=== PATIENT | female | born 1995 | race Caucasian/White ===

== ENCOUNTER 2016-06-25 20:49 | Emergency (ER) | payer OTHER, MEDICAID ==
[2016-06-25 22:08] LABS: BASO % 0.2 % (0.0-1.0); EOS # 0.5 K/mm3 (0.0-0.50); EOS % 3.7 % (0.0-3.0); LARGE UNSTAINED CELL # 0.3 K/mm3 (0.0-0.4); LARGE UNSTAINED CELL % 2.4 % (0.0-4.0); LYMPH # 4.8 K/mm3 (1.5-6.5); LYMPH % 36.6 % (24.0-44.0); MEAN CORPUSCULAR HEMOGLOBIN 30.9 pg (27.0-33.0); MEAN CORPUSCULAR VOLUME 90.6 fl (80.0-96.0); MONO # 0.7 K/mm3 (0.0-0.8); NEUTROPHILS # 6.8 K/mm3 (1.8-7.7); NEUTROPHILS % 52.1 % (36.0-66.0); PLATELET COUNT, AUTOMATED 361 k/mm3 (150-450); RED CELL DISTRIBUTION WIDTH 12.6 % (11.5-14.5); WHITE BLOOD COUNT 13.1 K/mm3 (4.0-10.0)
[2016-06-25 22:41] LABS: ANION GAP 11 MEQ/L (8-16); BLOOD UREA NITROGEN 11 MG/DL (7-18); CALCIUM LEVEL 9.3 MG/DL (8.5-10.1); CARBON DIOXIDE LEVEL 27 MEQ/L (21-32); CHLORIDE LEVEL 103 MEQ/L (98-107); CREATININE FOR GFR 0.82 MG/DL (0.55-1.02); GLUCOSE, FASTING 82 MG/DL (70-105); HCG, SERUM QUANTITATIVE 11789 MIU/ML; POTASSIUM SERUM 3.3 MEQ/L (3.5-5.1); SODIUM LEVEL 141 MEQ/L (136-145)
--- NOTE | 2016-06-26 | REPUSA ---
Ultrasound of the pelvis Clinical history: pain, rule out ectopic. Findings: Real-time ultrasound imaging of the pelvis using transabdominal imaging was performed. A in trauterine gestation is noted. The pole is appreciated, with the crown rump length measures 0.2 cm. heart rate measures 95 bpm. The gestational sac is grossly unremarkable, without evidence of a subchorionic hemorrhage. The uterus and adnexa are within normal limits. The uterus measures 8.3 x 5.2 x 6.2 cm. The left ovary measures 4.8 x 3.0 x 4.4 cm. A simple cyst in the left ovary measures 2.4 x 2.3 x 2.6 cm. The right ovary measures 3.3 x 2.3 x 2.8 cm. Impression: 1. Single live intrauterine measuring 5 weeks 5 days with a heart rate of 95 bpm. 2. Left ovarian corpus luteum cyst.
[2016-06-26] MEDS ORDERED: PHENAZOPYRIDINE 100 MG TAB As Ordered ONE (01:17)
[2016-06-26] MEDS ORDERED: CIPROFLOXACIN 500 MG TAB As Ordered ONE (01:17)
[2016-06-26] MEDS ORDERED: NITROFURANTOIN (MACROBID) 100 MG CAP As Ordered ONE (01:19)
[2016-06-26] MEDS ORDERED: OXYCODONE/APAP 5MG/325MG(BULK) 1 TAB TAB As Ordered ONE (01:20)
--- NOTE | 2016-06-26 01:35 | EDDOCDS ---
Physician Documentation [facility] Name: Yuliet Mortensen Age: 20 yrs Sex: Female : 1995 Arrival Date: 06/25/2016 Time: 20:49 Bed I4 / M4 Private MD: Nancie Slaughter N. Disposition: 06/26/16 01:24 Discharged to Home/Self Care. Impression: related conditions, unspecified, Hydronephrosis with renal and ureteral calculous obstruction - RIGHT, 6 MM STONE. - Condition is Stable. - Discharge Instructions: First Trimester of , Kidney Stones, Hydronephrosis. - Prescriptions for Percocet 5- 325 mg Oral Tablet - take 1 tablet by ORAL route every [address] LE MDD: 4 tabs; 16 tablet. Macrobid 100 mg Oral Capsule - take 100 milligram by ORAL route every 12 hours for 10 days; 20 capsule. - Medication Reconciliation, Local Pharmacy Hours form. - Follow up: Kwame Jorgensen; When: 2 - 3 days; Reason: Recheck today's complaints, Continuance of care. Follow up: Rick Nguyen; When: 2 - 3 days; Reason: Recheck today's complaints, Continuance of care. - Problem is new. - Symptoms have improved. - Notes: USE MEDICATIONS INSTRUCTED, FOLLOW UP WITH DR JORGENSEN AND DR NGUYEN, RETURN TO THE ER IF THE SYMPTOMS WORSEN OR BECOME CONCERNING Historical: - Allergies: PENICILLINS; - Home Meds: 1. none - PMHx: Kidney stones; frequent UTI; - PSHx: none; - Social history: Smoking status: Patient states was never smoker of tobacco. No barriers to communication noted, The patient speaks fluent Turkish, Speaks appropriately for age. - Family history: Not pertinent. - : The pt / caregiver states he / she is not on anticoagulants. Home medication list is obtained from the patient. - Exposure Risk Screening:: None identified. 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 2 in. (157.48 cm) (R); Pain 0/10; 06/26 01:32 BP 123 / 65; Pulse 91; Resp 16; Temp 98.2; Pulse Ox 99% on R/A; ld5 06/25 20:50 Body Mass Index 18.29 (45.36 kg, 157.48 cm) lr2 MDM: 06/25 21:16 UCG by Nursing ordered. dsf 21:17 UA Ordered. EDMS 21:40 IV Saline Lock ordered. ck7 21:40 NS 0.9% 1000 ml IV at bolus once ordered. ck7 21:41 CBC with Diff Ordered. EDMS 21:41 MED Profile Ordered. EDMS 21:41 Hcg, Serum Quantitative Ordered. EDMS 21:41 US 1st trimester Ordered. EDMS 21:41 Renal US Ordered. EDMS 22:16 UA Reviewed. ck7 22:16 CBC with Diff Reviewed. ck7 23:28 MED Profile Reviewed. ck7 23:28 Hcg, Serum Quantitative Reviewed. ck7 23:51 Financial registration complete. [facility] 06/26 00:15 US 1st trimester Reviewed. ck7 00:56 [facility] Payment Agreement was scanned into [employer] and attached to record. [facility] 01:16 Ciprofloxacin 500 mg PO once ordered. ck7 01:16 Phenazopyridine 200 mg PO once ordered. ck7 01:19 Nitrofurantoin 100 mg PO once ordered. ck7 01:19 oxyCODONE-acetaminophen 4 pack 5 mg-325 mg 1 packets PO once; Dispense with pt, take as ck7 per instruction on package ordered. Point of Care Testing: Urine : 06/25 21:24 hCG Reading: Positive; Control Reading: Positive; ar3 Ranges: Administered Medications: 21:51 Drug: NS 0.9% 1000 ml [sodium chloride 0.9 % intravenous solution] Route: IV; Rate: ld5 bolus; Site: right antecubital; 23:24 Follow up: IV Status: Completed infusion; IV Intake: 1000ml ld5 06/26 01:18 Not Given (OTHER MED USED): Ciprofloxacin 500 mg PO once ck7 01:18 Not Given (NOT GIVEN): Phenazopyridine 200 mg PO once ck7 01:31 Drug: Nitrofurantoin 100 mg {Note: 1 100 mg capsule.} Route: PO; ld5 01:31 Drug: oxyCODONE-acetaminophen 4 pack 1 packets [oxycodone-acetaminophen 5 mg-325 mg ld5 tablet (1 tabs)] {Co-Signature: [email or web address] (Sadie Aguayo RN).} Route: PO; 01:32 Follow up: Response: Med's dispensed home ld5 Signatures: Dispatcher [employer] Js Reyes RN RN cz Dickerson, Laura, RN RN ld5 Dionna Easley RN RN dsf Vicente Dillard, [facility] Mayra Merlos [facility] Sadie Aguayo RN [email or web address] The chart was reviewed and I authenticate all verbal orders and agree with the evaluation and treatment provided.Attachments: 00:56 [facility] Payment Agreement [facility] MTDD
--- NOTE | 2016-06-26 01:35 | EDDOCDS ---
Nurse's Notes [facility] Name: Yuliet Mortensen Age: 20 yrs Sex: Female : 1995 Arrival Date: 06/25/2016 Time: 20:49 Bed I4 / M4 Private MD: Nancie Slaughter N. Diagnosis: related conditions, unspecified;Hydronephrosis with renal and ureteral calculous obstruction-RIGHT, 6 MM STONE Presentation: 06/25 21:03 Presenting complaint: Patient states: having UTI symptoms for several days dysuria cz history of kidney issues. Adult Sepsis Screening: The patient does not have new or worsening altered mentation. Patient's respiratory rate is less than 22. Systolic blood pressure is greater than 100. Patient has a qSOFA score of 0- Negative Sepsis Screen. Suicide/Homicide risk assessment- the patient denies having any suicidal and/or homicidal ideations and does not present with any other emotional, behavioral or mental health complaints. Status: Patient is not a media services specialist or dependent. Transition of care: patient was not received from another setting of care. 21:03 Acuity: MARCELO Level 3 cz 21:03 Method Of Arrival: Walkin/Carried/Asstd cz Triage Assessment: 21:05 General: Appears uncomfortable. Pain: Location: pelvis Pain currently is 2 out of 10 on cz a pain scale. HIV screening NA for this visit Offered previously. 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 none - PMHx: Kidney stones; frequent UTI; - PSHx: none; - Social history: Smoking status: Patient states was never smoker of tobacco. No barriers to communication noted, The patient speaks fluent Austrian, Speaks appropriately for age. - Family history: Not pertinent. - : The pt / caregiver states he / she is not on anticoagulants. Home medication list is obtained from the patient. - Exposure Risk Screening:: None identified. Screenin:51 Screening information is obtained from the patient. Fall risk: No risks identified. ld5 Assistance ADL's: requires no assistance with activities of daily living. Abuse/DV Screen: The patient / caregiver reports he/she is: not in a situation that causes fear, pain or injury. Nutritional screening: No deficits noted. Advance Directives: Currently, there is no health care proxy. home support is adequate. Assessment: 21:15 General: Appears in no apparent distress, Behavior is appropriate for age, cooperative. dsf Neurological: Level of Consciousness is awake, alert. Cardiovascular: Capillary refill < 3 seconds. Respiratory: Airway is patent Respiratory effort is even, unlabored, Respiratory pattern is regular, symmetrical. : Reports burning with urination since 3-4 days ago urinary frequency since 3-4 days ago. 21:51 General: Appears in no apparent distress, Behavior is cooperative, pleasant. Pain: ld5 Location: suprapubic area Quality of pain is described as crampy. Neurological: Level of Consciousness is awake, alert. Respiratory: Airway is patent Respiratory effort is even, unlabored. GI: Abdomen is non- distended Bowel sounds present X 4 quads. Reports episode of nausea earlier today. Denies at this time. : Reports burning with urination urinary frequency. 23:24 General: Pt returned from US. Tolerated well. Sitting up in bed watching TV. Will ld5 continue to monitor. 06/26 00:15 General: Pt out to desk to ask about results. Reports she is tired and hungry and is ld5 ready to go home. It was explained to pt that US results are pending. Pt returned to room. 01:08 General: Mother out of room yelling that "someone needs to do something with her. She ld5 is tired and sick of waiting here!" This RN in to assess pt. Pt laying quietly in bed. Pt reports she is tired, hungry and thirsty. Pt states she has waited long enough and is ready to leave. Support provided. Provider made aware and in to speak with pt and family. Will continue to monitor. 01:32 General: Appears in no apparent distress, Behavior is cooperative. Neurological: Level ld5 of Consciousness is awake, alert. Respiratory: Airway is patent Respiratory effort is even, unlabored. Vital Signs: 06/25 20:50 BP 121 / 69; Pulse 100; Resp 18; Temp 98.4(O); Pulse Ox 100% on R/A; Weight 45.36 kg lr2 (R); Height 5 ft. 2 in. (157.48 cm) (R); Pain 0/10; 06/26 01:32 BP 123 / 65; Pulse 91; Resp 16; Temp 98.2; Pulse Ox 99% on R/A; ld5 06/25 20:50 Body Mass Index 18.29 (45.36 kg, 157.48 cm) lr2 Vitals: 06/25 20:50 Log In Time: June 25, 2016 at 20:49. lr2 ED Course: 20:50 Patient visited by Agustina Sanders. lr2 20:50 Patient moved to Waiting lr2 20:51 Nancie Slaughter is Private Physician. lr2 20:51 Patient moved to Pre RCE lr2 21:04 Triage Initiated cz 21:12 Patient moved to Triage 2 cz 21:17 Patient visited by Dionna Easley RN. dsf 21:24 UA Sent. ar3 21:25 Vicente Dillard RPA-C is PHCP. ck7 21:25 Smooth Brannon DO is Attending Physician. ck7 21:29 Patient visited by Vicente Dillard RPA-C. ck7 21:40 Patient moved to I4 / M4 ar3 21:51 The patient / caregiver is instructed regarding the plan of care and ED course. ld5 Accompanied by Family Member, Patient has correct armband on for positive identification. Placed in gown. 21:51 Hcg, Serum Quantitative Sent. ld5 21:51 MED Profile Sent. ld5 21:51 CBC with Diff Sent. ld5 21:51 Inserted saline lock: 20 gauge in right antecubital area and blood collected. The ld5 patient tolerated the procedure well. Labs drawn. (by ED staff). Sent per order to lab. 21:53 Patient visited by Agustina Villanueva RN. ld5 22:35 Patient visited by Jacky Cole PCA. kb5 22:46 Patient moved to Ultrasound dmg 23:24 Patient moved to I4 / M4 ld5 23:25 Patient visited by Agustina Villanueva RN. ld5 06/26 00:03 Patient visited by Vicente Dillard RPA-C. ck7 00:08 US 1st trimester Returned. EDMS 00:41 Patient visited by Vicente Dillard RPA-C. ck7 00:56 [facility] Payment Agreement was scanned into [employer] and attached to record. slh 01:10 Patient visited by Agustina Villanueva RN. ld5 01:16 Rick Nguyen is Referral Physician. ck7 01:24 Kwame Brantley is Referral Physician. ck7 01:24 Rick Nguyen is Referral Physician. ck7 01:32 Discontinued lock intact, bleeding controlled, pressure dressing applied, No ld5 redness/swelling at site. No procedures done that require assistance. 01:33 Patient visited by Agustina Villanueva RN. ld5 Administered Medications: 06/25 21:51 Drug: NS 0.9% 1000 ml [sodium chloride 0.9 % intravenous solution] Route: IV; Rate: ld5 bolus; Site: right antecubital; 23:24 Follow up: IV Status: Completed infusion; IV Intake: 1000ml ld5 06/26 01:18 Not Given (OTHER MED USED): Ciprofloxacin 500 mg PO once 01:18 Not Given (NOT GIVEN): Phenazopyridine 200 mg PO once ck7 01:31 Drug: Nitrofurantoin 100 mg {Note: 1 100 mg capsule.} Route: PO; ld5 01:31 Drug: oxyCODONE-acetaminophen 4 pack 1 packets [oxycodone-acetaminophen 5 mg-325 mg ld5 tablet (1 tabs)] {Co-Signature: [email or web address] (Sadie Aguayo RN).} Route: PO; :32 Follow up: Response: Med's dispensed home ld5 Point of Care Testing: Urine : 06/25 21:24 hCG Reading: Positive; Control Reading: Positive; ar3 Ranges: Intake: 23:24 IV: 1000.00ml; Total: 1000.00ml. ld5 Order Results: Lab Order: UA; SPEC'M 06/25/16 21:21 Test: APPEARANCE, URINE; Value: CLOUDY; Range: CLEAR; Abnormal: Above high normal; Status: F Test: COLOR, URINE; Value: YELLOW; Range: YELLOW; Status: F Test: PH,URINE; Value: 7.0; Range: 5.0-9.0; Units: UNITS; Status: F Test: SPECIFIC GRAVITY URINE AUTO; Value: 1.011; Range: 1.002-1.035; Status: F Test: PROTEIN, URINE AUTO; Value: NEGATIVE; Range: NEGATIVE; Units: mg/dL; Status: F Test: GLUCOSE, URINE (UA) AUTO; Value: NEGATIVE; Range: NEGATIVE; Units: mg/dL; Status: F Test: KETONE, URINE AUTO; Value: NEGATIVE; Range: NEGATIVE; Units: mg/dL; Status: F Test: UROBILINOGEN, URINE AUTO; Value: 0.2; Range: 0.0-2.0; Units: mg/dL; Status: F Test: BILIRUBIN, URINE AUTO; Value: NEGATIVE; Range: NEGATIVE; Status: F Test: NITRITE, URINE AUTO; Value: NEGATIVE; Range: NEGATIVE; Status: F Test: LEUKOCYTE ESTERASE, URINE AUTO; Value: TRACE; Range: NEGATIVE; Abnormal: Above high normal; Status: F Test: BLOOD, URINE BLOOD; Value: 1+; Range: NEGATIVE; Abnormal: Above high normal; Status: F Test: WBC, URINE AUTO; Value: 7; Range: 0-3; Abnormal: Above high normal; Units: /HPF; Status: F Test: RBC, URINE AUTO; Value: 15; Range: 0-3; Abnormal: Above high normal; Units: /HPF; Status: F Test: BACTERIA, URINE AUTO; Value: NEGATIVE; Range: NEGATIVE; Status: F Test: SQUAMOUS EPITHELIAL CELL UR AU; Value: 1; Range: 0-6; Units: /HPF; Status: F Test: HYALINE CAST, URINE AUTO; Value: 0; Range: 0-1; Units: /LPF; Status: F Test: AMORPHOUS SEDIMENT; Value: SMALL; Range: NEGATIVE; Abnormal: Above high normal; Status: F Lab Order: CBC with Diff; SPEC'M 06/25/16 21:49 Test: WHITE BLOOD COUNT; Value: 13.1; Range: 4.0-10.0; Abnormal: Above high normal; Units: K/mm3; Status: F Test: RED BLOOD COUNT; Value: 4.65; Range: 4.00-5.40; Units: M/mm3; Status: F Test: HEMOGLOBIN; Value: 14.3; Range: 12.0-16.0; Units: g/dl; Status: F Test: HEMATOCRIT; Value: 42.1; Range: 36.0-47.0; Units: %; Status: F Test: MEAN CORPUSCULAR VOLUME; Value: 90.6; Range: 80.0-96.0; Units: fl; Status: F Test: MEAN CORPUSCULAR HEMOGLOBIN; Value: 30.9; Range: 27.0-33.0; Units: pg; Status: F Test: MEAN CORPUSCULAR HGB CONC; Value: 34.0; Range: 32.0-36.5; Units: g/dl; Status: F Test: RED CELL DISTRIBUTION WIDTH; Value: 12.6; Range: 11.5-14.5; Units: %; Status: F Test: PLATELET COUNT, AUTOMATED; Value: 361; Range: 150-450; Units: k/mm3; Status: F Test: NEUTROPHILS %; Value: 52.1; Range: 36.0-66.0; Units: %; Status: F Test: LYMPH %; Value: 36.6; Range: 24.0-44.0; Units: %; Status: F Test: MONO %; Value: 5.0; Range: 0.0-5.0; Units: %; Status: F Test: EOS %; Value: 3.7; Range: 0.0-3.0; Abnormal: Above high normal; Units: %; Status: F Test: BASO %; Value: 0.2; Range: 0.0-1.0; Units: %; Status: F Test: LARGE UNSTAINED CELL %; Value: 2.4; Range: 0.0-4.0; Units: %; Status: F Test: NEUTROPHILS #; Value: 6.8; Range: 1.8-7.7; Units: K/mm3; Status: F Test: LYMPH #; Value: 4.8; Range: 1.5-6.5; Units: K/mm3; Status: F Test: MONO #; Value: 0.7; Range: 0.0-0.8; Units: K/mm3; Status: F Test: EOS #; Value: 0.5; Range: 0.0-0.50; Units: K/mm3; Status: F Test: BASO #; Value: 0.0; Range: 0.0-0.2; Units: K/mm3; Status: F Test: LARGE UNSTAINED CELL #; Value: 0.3; Range: 0.0-0.4; Units: K/mm3; Status: F Lab Order: MED Profile; SPEC'M 06/25/16 21:49 Test: GLUCOSE, FASTING; Value: 82; Range: 70-105; Units: MG/DL; Status: F Test: BLOOD UREA NITROGEN; Value: 11; Range: 7-18; Units: MG/DL; Status: F Test: CREATININE FOR GFR; Value: 0.82; Range: 0.55-1.02; Units: MG/DL; Status: F Test: SODIUM LEVEL; Value: 141; Range: 136-145; Units: MEQ/L; Status: F Test: POTASSIUM SERUM; Value: 3.3; Range: 3.5-5.1; Abnormal: Below low normal; Units: MEQ/L; Status: F Test: CHLORIDE LEVEL; Value: 103; Range: 98-107; Units: MEQ/L; Status: F Test: CARBON DIOXIDE LEVEL; Value: 27; Range: 21-32; Units: MEQ/L; Status: F Test: ANION GAP; Value: 11; Range: 8-16; Units: MEQ/L; Status: F Test: CALCIUM LEVEL; Value: 9.3; Range: 8.5-10.1; Units: MG/DL; Status: F Lab Order: Hcg, Serum Quantitative; SPEC'M 06/25/16 21:49 Test: HCG, SERUM QUANTITATIVE; Value: [id number]; Units: MIU/ML; Status: F Test Note: ; GESTATIONAL AGE APPROXIMATE HCG RANGE (MIU/ML) 0.2-1 WEEK 5-50 1-2 WEEKS 50-500 2-3 WEEKS 100-5,000 3-4 WEEKS 500-10,000 4-5 WEEKS 1,000-50,000 5-6 WEEKS 10,000-100,000 6-8 WEEKS 15,000-200,000 2-3 MONTHS 10,000-100,000 NON FEMALES LESS THAN 3.0 Patient samples may contain human heterophilic antibodies that could react with immunoassays to give falsely elevated or depressed results. This assay has been designed to minimize interference from heterophilic antibodies. Elevated hCG levels have also been associated with trophoblastic disease and nontrophoblastic neoplasms. The possibility of having these diseases should be considered before a diagnosis of is made. This test is not intended for use as a surrogate marker for aiding in the diagnosis or monitoring the treatment of cancer patients. [employer] methodology. Radiology Order: US 1st trimester Test: US 1st trimester REASON FOR EXAMINATION: r/o ectopic; ; Ultrasound of the pelvis; Clinical history: pain, rule out ectopic.; Findings: Real-time ultrasound imaging of the pelvis using transabdominal imaging was performed. A in; trauterine gestation is noted. The pole is appreciated, with the crown rump length measures 0.2; cm. heart rate measures 95 bpm. The gestational sac is grossly unremarkable, without evidence; of a subchorionic hemorrhage. The uterus and adnexa are within normal limits. The uterus measures 8.3; x 5.2 x 6.2 cm. The left ovary measures 4.8 x 3.0 x 4.4 cm. A simple cyst in the left ovary measures; 2.4 x 2.3 x 2.6 cm. The right ovary measures 3.3 x 2.3 x 2.8 cm.; Impression:; 1. Single live intrauterine measuring 5 weeks 5 days with a heart rate of 95 bpm.; 2. Left ovarian corpus luteum cyst.; ; Outcome: 06/26 01:17 Discharge ordered by Provider. ck7 01:24 Discharge ordered by Provider. ck7 01:32 Discharge Assessment: Patient awake, alert and oriented x 3. No cognitive and/or ld5 functional deficits noted. Patient verbalized understanding of disposition instructions. patient administered narcotics - no. The following High Risk Discharge criteria are identified: None. Discharged to home ambulatory, with family. Condition: stable. Discharge instructions given to patient, family, Instructed on discharge instructions, follow up and referral plans. medication usage, no driving heavy equipment, Demonstrated understanding of instructions, medications, Pt was receptive of discharge instructions/ teaching. Prescriptions given X 2. Ultrasound Study completed. Property :Personal belongings accompany Pt. 01:33 Patient left the ED. ld5 Signatures: Dispatcher [employer] EDMS Js Son RN RN cz Gunn, Deanne dmg Bancroft, Kristopher, ELECTRICAL AND RADIO AIRCRAFT MECHANIC ELECTRICAL AND RADIO AIRCRAFT MECHANIC kb5 Annmarie Luna, ELECTRICAL AND RADIO AIRCRAFT MECHANIC ELECTRICAL AND RADIO AIRCRAFT MECHANIC ar3 Agustina Villanueva RN RN ld5 Dionna Easley RN RN dsf Kwaczala, Christopher, RPA-C [id number] Mayra Merlos Laura lr2 Sadie Aguayo RN [email or web address] MTDD
--- NOTE | 2016-06-26 07:54 | REPUSA ---
Clinical history: right flank pain. Findings: The urinary bladder appears unremarkable. No urinary bladder masses are seen. The right kid rukhsana measures 9.9 x 4.8 x 5.0 cm. The left kidney measures 10.9 x 5.3 x 4.6 cm. The kidneys demonstrat e normal echotexture and echogenicity. There is moderate right-sided hydronephrosis. There is a 6 mm stone in the distal right ureter approximately 1.3 cm proximally from the ureterovesical junction. Th ere is no other evidence of nephrolithiasis. No renal masses are seen. No free fluid is appreciated. Impression: Moderate right-sided hydronephrosis secondary to a 6 mm stone in the distal right ureter.
--- NOTE | 2016-06-28 02:35 | EDDOCDS ---
Physician Documentation [facility] Name: Yuliet Mortensen Age: 20 yrs Sex: Female : 1995 Arrival Date: 06/25/2016 Time: 20:49 Bed I4 / M4 Private MD: Nancie Slaughter N. Disposition: 06/26/16 01:24 Discharged to Home/Self Care. Impression: related conditions, unspecified, Hydronephrosis with renal and ureteral calculous obstruction - RIGHT, 6 MM STONE. - Condition is Stable. - Discharge Instructions: First Trimester of , Kidney Stones, Hydronephrosis. - Prescriptions for Percocet 5- 325 mg Oral Tablet - take 1 tablet by ORAL route every [address] LE MDD: 4 tabs; 16 tablet. Macrobid 100 mg Oral Capsule - take 100 milligram by ORAL route every 12 hours for 10 days; 20 capsule. - Medication Reconciliation, Local Pharmacy Hours form. - Follow up: Kwame Jorgensen; When: 2 - 3 days; Reason: Recheck today's complaints, Continuance of care. Follow up: Rick Nguyen; When: 2 - 3 days; Reason: Recheck today's complaints, Continuance of care. - Problem is new. - Symptoms have improved. - Notes: USE MEDICATIONS INSTRUCTED, FOLLOW UP WITH DR JORGENSEN AND DR NGUYEN, RETURN TO THE ER IF THE SYMPTOMS WORSEN OR BECOME CONCERNING Historical: - Allergies: PENICILLINS; - Home Meds: 1. none - PMHx: Kidney stones; frequent UTI; - PSHx: none; - Social history: Smoking status: Patient states was never smoker of tobacco. No barriers to communication noted, The patient speaks fluent [place], Speaks appropriately for age. - Family history: Not pertinent. - : The pt / caregiver states he / she is not on anticoagulants. Home medication list is obtained from the patient. - Exposure Risk Screening:: None identified. 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 2 in. (157.48 cm) (R); Pain 0/10; 06/26 01:32 BP 123 / 65; Pulse 91; Resp 16; Temp 98.2; Pulse Ox 99% on R/A; ld5 06/25 20:50 Body Mass Index 18.29 (45.36 kg, 157.48 cm) lr2 MDM: 06/25 21:16 UCG by Nursing ordered. dsf 21:17 UA Ordered. EDMS 21:40 IV Saline Lock ordered. ck7 21:40 NS 0.9% 1000 ml IV at bolus once ordered. ck7 21:41 CBC with Diff Ordered. EDMS 21:41 MED Profile Ordered. EDMS 21:41 Hcg, Serum Quantitative Ordered. EDMS 21:41 US 1st trimester Ordered. EDMS 21:41 Renal US Ordered. EDMS 22:16 UA Reviewed. ck7 22:16 CBC with Diff Reviewed. ck7 23:28 MED Profile Reviewed. ck7 23:28 Hcg, Serum Quantitative Reviewed. ck7 23:51 Financial registration complete. [facility] 06/26 00:15 US 1st trimester Reviewed. ck7 00:56 [facility] Payment Agreement was scanned into [employer] and attached to record. [facility] 01:16 Ciprofloxacin 500 mg PO once ordered. ck7 01:16 Phenazopyridine 200 mg PO once ordered. ck7 01:19 Nitrofurantoin 100 mg PO once ordered. ck7 01:19 oxyCODONE-acetaminophen 4 pack 5 mg-325 mg 1 packets PO once; Dispense with pt, take as ck7 per instruction on package ordered. Point of Care Testing: Urine : 06/25 21:24 hCG Reading: Positive; Control Reading: Positive; ar3 Ranges: Administered Medications: 21:51 Drug: NS 0.9% 1000 ml [sodium chloride 0.9 % intravenous solution] Route: IV; Rate: ld5 bolus; Site: right antecubital; 23:24 Follow up: IV Status: Completed infusion; IV Intake: 1000ml ld5 06/26 01:18 Not Given (OTHER MED USED): Ciprofloxacin 500 mg PO once ck7 01:18 Not Given (NOT GIVEN): Phenazopyridine 200 mg PO once ck7 01:31 Drug: Nitrofurantoin 100 mg {Note: 1 100 mg capsule.} Route: PO; ld5 01:31 Drug: oxyCODONE-acetaminophen 4 pack 1 packets [oxycodone-acetaminophen 5 mg-325 mg ld5 tablet (1 tabs)] {Co-Signature: [email or web address] (Sadie Aguayo RN).} Route: PO; 01:32 Follow up: Response: Med's dispensed home ld5 Signatures: Dispatcher [employer] Js Reyes RN RN cz Dickerson, Laura, RN RN ld5 Dionna Easley RN RN dsf Vicente Dillard, SOC[facility]-C [facility] Mayra Merlos [facility] Sadie Aguayo RN [email or web address] The chart was reviewed and I authenticate all verbal orders and agree with the evaluation and treatment provided.Attachments: 00:56 [facility] Payment Agreement [facility] Chart [facility]
--- NOTE | 2016-06-28 02:35 | EDDOCDS ---
Physician Documentation [facility] Name: Yuliet Mortensen Age: 20 yrs Sex: Female : 1995 Arrival Date: 06/25/2016 Time: 20:49 Bed I4 / M4 Private MD: Nancie Slaughter N. Disposition: 06/26/16 01:24 Discharged to Home/Self Care. Impression: related conditions, unspecified, Hydronephrosis with renal and ureteral calculous obstruction - RIGHT, 6 MM STONE. - Condition is Stable. - Discharge Instructions: First Trimester of , Kidney Stones, Hydronephrosis. - Prescriptions for Percocet 5- 325 mg Oral Tablet - take 1 tablet by ORAL route every [address] LE MDD: 4 tabs; 16 tablet. Macrobid 100 mg Oral Capsule - take 100 milligram by ORAL route every 12 hours for 10 days; 20 capsule. - Medication Reconciliation, Local Pharmacy Hours form. - Follow up: Kwame Jorgensen; When: 2 - 3 days; Reason: Recheck today's complaints, Continuance of care. Follow up: Rick Nguyen; When: 2 - 3 days; Reason: Recheck today's complaints, Continuance of care. - Problem is new. - Symptoms have improved. - Notes: USE MEDICATIONS INSTRUCTED, FOLLOW UP WITH DR JORGENSEN AND DR NGUYEN, RETURN TO THE ER IF THE SYMPTOMS WORSEN OR BECOME CONCERNING Historical: - Allergies: PENICILLINS; - Home Meds: 1. none - PMHx: Kidney stones; frequent UTI; - PSHx: none; - Social history: Smoking status: Patient states was never smoker of tobacco. No barriers to communication noted, The patient speaks fluent [place], Speaks appropriately for age. - Family history: Not pertinent. - : The pt / caregiver states he / she is not on anticoagulants. Home medication list is obtained from the patient. - Exposure Risk Screening:: None identified. 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 2 in. (157.48 cm) (R); Pain 0/10; 06/26 01:32 BP 123 / 65; Pulse 91; Resp 16; Temp 98.2; Pulse Ox 99% on R/A; ld5 06/25 20:50 Body Mass Index 18.29 (45.36 kg, 157.48 cm) lr2 MDM: 06/25 21:16 UCG by Nursing ordered. dsf 21:17 UA Ordered. EDMS 21:40 IV Saline Lock ordered. ck7 21:40 NS 0.9% 1000 ml IV at bolus once ordered. ck7 21:41 CBC with Diff Ordered. EDMS 21:41 MED Profile Ordered. EDMS 21:41 Hcg, Serum Quantitative Ordered. EDMS 21:41 US 1st trimester Ordered. EDMS 21:41 Renal US Ordered. EDMS 22:16 UA Reviewed. ck7 22:16 CBC with Diff Reviewed. ck7 23:28 MED Profile Reviewed. ck7 23:28 Hcg, Serum Quantitative Reviewed. ck7 23:51 Financial registration complete. [facility] 06/26 00:15 US 1st trimester Reviewed. ck7 00:56 [facility] Payment Agreement was scanned into [employer] and attached to record. [facility] 01:16 Ciprofloxacin 500 mg PO once ordered. ck7 01:16 Phenazopyridine 200 mg PO once ordered. ck7 01:19 Nitrofurantoin 100 mg PO once ordered. ck7 01:19 oxyCODONE-acetaminophen 4 pack 5 mg-325 mg 1 packets PO once; Dispense with pt, take as ck7 per instruction on package ordered. Point of Care Testing: Urine : 06/25 21:24 hCG Reading: Positive; Control Reading: Positive; ar3 Ranges: Administered Medications: 21:51 Drug: NS 0.9% 1000 ml [sodium chloride 0.9 % intravenous solution] Route: IV; Rate: ld5 bolus; Site: right antecubital; 23:24 Follow up: IV Status: Completed infusion; IV Intake: 1000ml ld5 06/26 01:18 Not Given (OTHER MED USED): Ciprofloxacin 500 mg PO once ck7 01:18 Not Given (NOT GIVEN): Phenazopyridine 200 mg PO once ck7 01:31 Drug: Nitrofurantoin 100 mg {Note: 1 100 mg capsule.} Route: PO; ld5 01:31 Drug: oxyCODONE-acetaminophen 4 pack 1 packets [oxycodone-acetaminophen 5 mg-325 mg ld5 tablet (1 tabs)] {Co-Signature: [email or web address] (Sadie Aguayo RN).} Route: PO; 01:32 Follow up: Response: Med's dispensed home ld5 Signatures: Dispatcher [employer] Js Reyes RN RN cz Dickerson, Laura, RN RN ld5 Dionna Easley RN RN dsf Vicente Dillard, [facility]-C [facility] Mayra Merlos [facility] Sadie Aguayo RN [email or web address] The chart was reviewed and I authenticate all verbal orders and agree with the evaluation and treatment provided.Attachments: 00:56 [facility] Payment Agreement [facility] Chart Complete [facility]
--- NOTE | 2016-06-28 02:35 | EDDOCDS ---
Nurse's Notes [facility] Name: Yuliet Mortensen Age: 20 yrs Sex: Female : 1995 Arrival Date: 06/25/2016 Time: 20:49 Bed I4 / M4 Private MD: Nancie Slaughter N. Diagnosis: related conditions, unspecified;Hydronephrosis with renal and ureteral calculous obstruction-RIGHT, 6 MM STONE Presentation: 06/25 21:03 Presenting complaint: Patient states: having UTI symptoms for several days dysuria cz history of kidney issues. Adult Sepsis Screening: The patient does not have new or worsening altered mentation. Patient's respiratory rate is less than 22. Systolic blood pressure is greater than 100. Patient has a qSOFA score of 0- Negative Sepsis Screen. Suicide/Homicide risk assessment- the patient denies having any suicidal and/or homicidal ideations and does not present with any other emotional, behavioral or mental health complaints. Status: Patient is not a servicer travel trailers or dependent. Transition of care: patient was not received from another setting of care. 21:03 Acuity: MARCELO Level 3 cz 21:03 Method Of Arrival: Walkin/Carried/Asstd cz Triage Assessment: 21:05 General: Appears uncomfortable. Pain: Location: pelvis Pain currently is 2 out of 10 on cz a pain scale. HIV screening NA for this visit Offered previously. 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 none - PMHx: Kidney stones; frequent UTI; - PSHx: none; - Social history: Smoking status: Patient states was never smoker of tobacco. No barriers to communication noted, The patient speaks fluent [place], Speaks appropriately for age. - Family history: Not pertinent. - : The pt / caregiver states he / she is not on anticoagulants. Home medication list is obtained from the patient. - Exposure Risk Screening:: None identified. Screenin:51 Screening information is obtained from the patient. Fall risk: No risks identified. ld5 Assistance ADL's: requires no assistance with activities of daily living. Abuse/DV Screen: The patient / caregiver reports he/she is: not in a situation that causes fear, pain or injury. Nutritional screening: No deficits noted. Advance Directives: Currently, there is no health care proxy. home support is adequate. Assessment: 21:15 General: Appears in no apparent distress, Behavior is appropriate for age, cooperative. dsf Neurological: Level of Consciousness is awake, alert. Cardiovascular: Capillary refill < 3 seconds. Respiratory: Airway is patent Respiratory effort is even, unlabored, Respiratory pattern is regular, symmetrical. : Reports burning with urination since 3-4 days ago urinary frequency since 3-4 days ago. 21:51 General: Appears in no apparent distress, Behavior is cooperative, pleasant. Pain: ld5 Location: suprapubic area Quality of pain is described as crampy. Neurological: Level of Consciousness is awake, alert. Respiratory: Airway is patent Respiratory effort is even, unlabored. GI: Abdomen is non- distended Bowel sounds present X 4 quads. Reports episode of nausea earlier today. Denies at this time. : Reports burning with urination urinary frequency. 23:24 General: Pt returned from US. Tolerated well. Sitting up in bed watching TV. Will ld5 continue to monitor. 06/26 00:15 General: Pt out to desk to ask about results. Reports she is tired and hungry and is ld5 ready to go home. It was explained to pt that US results are pending. Pt returned to room. 01:08 General: Mother out of room yelling that "someone needs to do something with her. She ld5 is tired and sick of waiting here!" This RN in to assess pt. Pt laying quietly in bed. Pt reports she is tired, hungry and thirsty. Pt states she has waited long enough and is ready to leave. Support provided. Provider made aware and in to speak with pt and family. Will continue to monitor. 01:32 General: Appears in no apparent distress, Behavior is cooperative. Neurological: Level ld5 of Consciousness is awake, alert. Respiratory: Airway is patent Respiratory effort is even, unlabored. Vital Signs: 06/25 20:50 BP 121 / 69; Pulse 100; Resp 18; Temp 98.4(O); Pulse Ox 100% on R/A; Weight 45.36 kg lr2 (R); Height 5 ft. 2 in. (157.48 cm) (R); Pain 0/10; 06/26 01:32 BP 123 / 65; Pulse 91; Resp 16; Temp 98.2; Pulse Ox 99% on R/A; ld5 06/25 20:50 Body Mass Index 18.29 (45.36 kg, 157.48 cm) lr2 Vitals: 06/25 20:50 Log In Time: June 25, 2016 at 20:49. lr2 ED Course: 20:50 Patient visited by Agustina Sanders. lr2 20:50 Patient moved to Waiting lr2 20:51 Nancie Slaughter is Private Physician. lr2 20:51 Patient moved to Pre RCE lr2 21:04 Triage Initiated cz 21:12 Patient moved to Triage 2 cz 21:17 Patient visited by Dionna Easley RN. dsf 21:24 UA Sent. ar3 21:25 Vicente Dillard RPA-C is PHCP. ck7 21:25 Smooth Brannon DO is Attending Physician. ck7 21:29 Patient visited by Vicente Dillard RPA-C. ck7 21:40 Patient moved to I4 / M4 ar3 21:51 The patient / caregiver is instructed regarding the plan of care and ED course. ld5 Accompanied by Family Member, Patient has correct armband on for positive identification. Placed in gown. 21:51 Hcg, Serum Quantitative Sent. ld5 21:51 MED Profile Sent. ld5 21:51 CBC with Diff Sent. ld5 21:51 Inserted saline lock: 20 gauge in right antecubital area and blood collected. The ld5 patient tolerated the procedure well. Labs drawn. (by ED staff). Sent per order to lab. 21:53 Patient visited by Agustina Villanueva RN. ld5 22:35 Patient visited by Jacky Cole PCA. kb5 22:46 Patient moved to Ultrasound dmg 23:24 Patient moved to I4 / M4 ld5 23:25 Patient visited by Agustina Villanueva RN. ld5 06/26 00:03 Patient visited by Vicente Dillard RPA-C. ck7 00:08 US 1st trimester Returned. EDMS 00:41 Patient visited by Vicente Dillard RPA-C. ck7 00:56 [facility] Payment Agreement was scanned into [employer] and attached to record. slh 01:10 Patient visited by Agustina Villanueva RN. ld5 01:16 Rick Nguyen is Referral Physician. ck7 01:24 Kwame Brantley is Referral Physician. ck7 01:24 Rick Nguyen is Referral Physician. ck7 01:32 Discontinued lock intact, bleeding controlled, pressure dressing applied, No ld5 redness/swelling at site. No procedures done that require assistance. 01:33 Patient visited by Agustina Villanueva RN. ld5 08:01 Renal US Returned. EDMS Administered Medications: 06/25 21:51 Drug: NS 0.9% 1000 ml [sodium chloride 0.9 % intravenous solution] Route: IV; Rate: ld5 bolus; Site: right antecubital; 23:24 Follow up: IV Status: Completed infusion; IV Intake: 1000ml ld5 06/26 01:18 Not Given (OTHER MED USED): Ciprofloxacin 500 mg PO once 7 01:18 Not Given (NOT GIVEN): Phenazopyridine 200 mg PO once ck7 01:31 Drug: Nitrofurantoin 100 mg {Note: 1 100 mg capsule.} Route: PO; ld5 01:31 Drug: oxyCODONE-acetaminophen 4 pack 1 packets [oxycodone-acetaminophen 5 mg-325 mg ld5 tablet (1 tabs)] {Co-Signature: [email or web address] (Sadie Aguayo RN).} Route: PO; 01:32 Follow up: Response: Med's dispensed home ld5 Point of Care Testing: Urine : 06/25 21:24 hCG Reading: Positive; Control Reading: Positive; ar3 Ranges: Intake: 23:24 IV: 1000.00ml; Total: 1000.00ml. ld5 Order Results: Lab Order: UA; SPEC'M 06/25/16 21:21 Test: APPEARANCE, URINE; Value: CLOUDY; Range: CLEAR; Abnormal: Above high normal; Status: F Test: COLOR, URINE; Value: YELLOW; Range: YELLOW; Status: F Test: PH,URINE; Value: 7.0; Range: 5.0-9.0; Units: UNITS; Status: F Test: SPECIFIC GRAVITY URINE AUTO; Value: 1.011; Range: 1.002-1.035; Status: F Test: PROTEIN, URINE AUTO; Value: NEGATIVE; Range: NEGATIVE; Units: mg/dL; Status: F Test: GLUCOSE, URINE (UA) AUTO; Value: NEGATIVE; Range: NEGATIVE; Units: mg/dL; Status: F Test: KETONE, URINE AUTO; Value: NEGATIVE; Range: NEGATIVE; Units: mg/dL; Status: F Test: UROBILINOGEN, URINE AUTO; Value: 0.2; Range: 0.0-2.0; Units: mg/dL; Status: F Test: BILIRUBIN, URINE AUTO; Value: NEGATIVE; Range: NEGATIVE; Status: F Test: NITRITE, URINE AUTO; Value: NEGATIVE; Range: NEGATIVE; Status: F Test: LEUKOCYTE ESTERASE, URINE AUTO; Value: TRACE; Range: NEGATIVE; Abnormal: Above high normal; Status: F Test: BLOOD, URINE BLOOD; Value: 1+; Range: NEGATIVE; Abnormal: Above high normal; Status: F Test: WBC, URINE AUTO; Value: 7; Range: 0-3; Abnormal: Above high normal; Units: /HPF; Status: F Test: RBC, URINE AUTO; Value: 15; Range: 0-3; Abnormal: Above high normal; Units: /HPF; Status: F Test: BACTERIA, URINE AUTO; Value: NEGATIVE; Range: NEGATIVE; Status: F Test: SQUAMOUS EPITHELIAL CELL UR AU; Value: 1; Range: 0-6; Units: /HPF; Status: F Test: HYALINE CAST, URINE AUTO; Value: 0; Range: 0-1; Units: /LPF; Status: F Test: AMORPHOUS SEDIMENT; Value: SMALL; Range: NEGATIVE; Abnormal: Above high normal; Status: F Lab Order: CBC with Diff; SPEC'M 06/25/16 21:49 Test: WHITE BLOOD COUNT; Value: 13.1; Range: 4.0-10.0; Abnormal: Above high normal; Units: K/mm3; Status: F Test: RED BLOOD COUNT; Value: 4.65; Range: 4.00-5.40; Units: M/mm3; Status: F Test: HEMOGLOBIN; Value: 14.3; Range: 12.0-16.0; Units: g/dl; Status: F Test: HEMATOCRIT; Value: 42.1; Range: 36.0-47.0; Units: %; Status: F Test: MEAN CORPUSCULAR VOLUME; Value: 90.6; Range: 80.0-96.0; Units: fl; Status: F Test: MEAN CORPUSCULAR HEMOGLOBIN; Value: 30.9; Range: 27.0-33.0; Units: pg; Status: F Test: MEAN CORPUSCULAR HGB CONC; Value: 34.0; Range: 32.0-36.5; Units: g/dl; Status: F Test: RED CELL DISTRIBUTION WIDTH; Value: 12.6; Range: 11.5-14.5; Units: %; Status: F Test: PLATELET COUNT, AUTOMATED; Value: 361; Range: 150-450; Units: k/mm3; Status: F Test: NEUTROPHILS %; Value: 52.1; Range: 36.0-66.0; Units: %; Status: F Test: LYMPH %; Value: 36.6; Range: 24.0-44.0; Units: %; Status: F Test: MONO %; Value: 5.0; Range: 0.0-5.0; Units: %; Status: F Test: EOS %; Value: 3.7; Range: 0.0-3.0; Abnormal: Above high normal; Units: %; Status: F Test: BASO %; Value: 0.2; Range: 0.0-1.0; Units: %; Status: F Test: LARGE UNSTAINED CELL %; Value: 2.4; Range: 0.0-4.0; Units: %; Status: F Test: NEUTROPHILS #; Value: 6.8; Range: 1.8-7.7; Units: K/mm3; Status: F Test: LYMPH #; Value: 4.8; Range: 1.5-6.5; Units: K/mm3; Status: F Test: MONO #; Value: 0.7; Range: 0.0-0.8; Units: K/mm3; Status: F Test: EOS #; Value: 0.5; Range: 0.0-0.50; Units: K/mm3; Status: F Test: BASO #; Value: 0.0; Range: 0.0-0.2; Units: K/mm3; Status: F Test: LARGE UNSTAINED CELL #; Value: 0.3; Range: 0.0-0.4; Units: K/mm3; Status: F Lab Order: MED Profile; SPEC'M 06/25/16 21:49 Test: GLUCOSE, FASTING; Value: 82; Range: 70-105; Units: MG/DL; Status: F Test: BLOOD UREA NITROGEN; Value: 11; Range: 7-18; Units: MG/DL; Status: F Test: CREATININE FOR GFR; Value: 0.82; Range: 0.55-1.02; Units: MG/DL; Status: F Test: SODIUM LEVEL; Value: 141; Range: 136-145; Units: MEQ/L; Status: F Test: POTASSIUM SERUM; Value: 3.3; Range: 3.5-5.1; Abnormal: Below low normal; Units: MEQ/L; Status: F Test: CHLORIDE LEVEL; Value: 103; Range: 98-107; Units: MEQ/L; Status: F Test: CARBON DIOXIDE LEVEL; Value: 27; Range: 21-32; Units: MEQ/L; Status: F Test: ANION GAP; Value: 11; Range: 8-16; Units: MEQ/L; Status: F Test: CALCIUM LEVEL; Value: 9.3; Range: 8.5-10.1; Units: MG/DL; Status: F Lab Order: Hcg, Serum Quantitative; SPEC'M 06/25/16 21:49 Test: HCG, SERUM QUANTITATIVE; Value: [id number]; Units: MIU/ML; Status: F Test Note: ; GESTATIONAL AGE APPROXIMATE HCG RANGE (MIU/ML) 0.2-1 WEEK 5-50 1-2 WEEKS 50-500 2-3 WEEKS 100-5,000 3-4 WEEKS 500-10,000 4-5 WEEKS 1,000-50,000 5-6 WEEKS 10,000-100,000 6-8 WEEKS 15,000-200,000 2-3 MONTHS 10,000-100,000 NON FEMALES LESS THAN 3.0 Patient samples may contain human heterophilic antibodies that could react with immunoassays to give falsely elevated or depressed results. This assay has been designed to minimize interference from heterophilic antibodies. Elevated hCG levels have also been associated with trophoblastic disease and nontrophoblastic neoplasms. The possibility of having these diseases should be considered before a diagnosis of is made. This test is not intended for use as a surrogate marker for aiding in the diagnosis or monitoring the treatment of cancer patients. [employer] methodology. Radiology Order: US 1st trimester Test: US 1st trimester REASON FOR EXAMINATION: r/o ectopic; ; Ultrasound of the pelvis; Clinical history: pain, rule out ectopic.; Findings: Real-time ultrasound imaging of the pelvis using transabdominal imaging was performed. A in; trauterine gestation is noted. The pole is appreciated, with the crown rump length measures 0.2; cm. heart rate measures 95 bpm. The gestational sac is grossly unremarkable, without evidence; of a subchorionic hemorrhage. The uterus and adnexa are within normal limits. The uterus measures 8.3; x 5.2 x 6.2 cm. The left ovary measures 4.8 x 3.0 x 4.4 cm. A simple cyst in the left ovary measures; 2.4 x 2.3 x 2.6 cm. The right ovary measures 3.3 x 2.3 x 2.8 cm.; Impression:; 1. Single live intrauterine measuring 5 weeks 5 days with a heart rate of 95 bpm.; 2. Left ovarian corpus luteum cyst.; ; Radiology Order: Renal US Test: Renal US REASON FOR EXAMINATION: r/o kidney stone, right flank pain; ; Clinical history: right flank pain.; Findings: The urinary bladder appears unremarkable. No urinary bladder masses are seen. The right kid; rukhsana measures 9.9 x 4.8 x 5.0 cm. The left kidney measures 10.9 x 5.3 x 4.6 cm. The kidneys demonstrat; e normal echotexture and echogenicity. There is moderate right-sided hydronephrosis. There is a 6 mm; stone in the distal right ureter approximately 1.3 cm proximally from the ureterovesical junction. Th; ere is no other evidence of nephrolithiasis. No renal masses are seen. No free fluid is appreciated.; Impression: Moderate right-sided hydronephrosis secondary to a 6 mm stone in the distal right ureter.; ; ; Outcome: 06/26 01:17 Discharge ordered by Provider. ck7 01:24 Discharge ordered by Provider. ck7 01:32 Discharge Assessment: Patient awake, alert and oriented x 3. No cognitive and/or ld5 functional deficits noted. Patient verbalized understanding of disposition instructions. patient administered narcotics - no. The following High Risk Discharge criteria are identified: None. Discharged to home ambulatory, with family. Condition: stable. Discharge instructions given to patient, family, Instructed on discharge instructions, follow up and referral plans. medication usage, no driving heavy equipment, Demonstrated understanding of instructions, medications, Pt was receptive of discharge instructions/ teaching. Prescriptions given X 2. Ultrasound Study completed. Property :Personal belongings accompany Pt. 01:33 Patient left the ED. ld5 Signatures: Dispatcher [employer] EDMS Js Son, RN RN Brandi Asif Kristopher, SURGERY TECH SURGERY TECH kb5 Annmarie Luna, SURGERY TECH SURGERY TECH ar3 Agustina VillanuevaRN RN ld5 Dionna EasleyRN RN dsf Vicente Dillard, RPA-C RPA-[id number] Mayra Merlos Laura lr2 Sadie Aguayo RN [email or web address] Chart Complete [facility]
== END 2016-06-26 01:33 | disposition home or self-care (01) ==
LOC: M ED 20:49
DX: O99.281 Endocrine, nutritional and metabolic diseases complicating pregnancy, first trimester (principal); N20.0 Calculus of kidney; Z88.0 Allergy status to penicillin; Z3A.01 Less than 8 weeks gestation of pregnancy

== ENCOUNTER → 2016-07-20 | Outpatient (REF) | payer OTHER, MEDICAID ==
[2016-07-20 11:29] LABS: BASO % 0.5 % (0.0-1.0); EOS # 0.4 K/mm3 (0.0-0.50); EOS % 5.4 % (0.0-3.0); LARGE UNSTAINED CELL # 0.1 K/mm3 (0.0-0.4); LARGE UNSTAINED CELL % 1.2 % (0.0-4.0); LYMPH % 23.7 % (24.0-44.0); MEAN CORPUSCULAR HEMOGLOBIN 31.5 pg (27.0-33.0); MEAN CORPUSCULAR HGB CONC 33.9 g/dl (32.0-36.5); MONO # 0.5 K/mm3 (0.0-0.8); MONO % 5.4 % (0.0-5.0); NEUTROPHILS # 5.2 K/mm3 (1.8-7.7); NEUTROPHILS % 63.8 % (36.0-66.0); PLATELET COUNT, AUTOMATED 273 k/mm3 (150-450); RED CELL DISTRIBUTION WIDTH 12.8 % (11.5-14.5); WHITE BLOOD COUNT 8.2 K/mm3 (4.0-10.0)
[2016-07-20 12:09] LABS: HBsAg Prenatal NEGATIVE (NEGATIVE)
[2016-07-20 12:37] LABS: HIV SCREEN CENTAUR NEGATIVE (NEGATIVE)
== END ==
LOC: M LABDRWAD 11:00
PROVIDERS: ATTEND Advanced Practice Midwife
DX: Z34.81 Encounter for supervision of other normal pregnancy, first trimester (principal); Z36 Encounter for antenatal screening of mother

== ENCOUNTER → 2016-09-20 | Outpatient (CLI) | payer OTHER, MEDICAID ==
--- NOTE | 2016-09-20 15:09 | REP ---
OBSTETRIC SONOGRAM: HISTORY: Supervision of for anatomy. FINDINGS: Scanning through the gravid uterus demonstrates a viable single intrauterine gestation in a breech lie. motion is observed, and heart rate is recorded at 160 beats per minute. An anterior grade 0 placenta is seen without evidence of previa or abruption. Amniotic fluid is subjectively normal. Closed cervical length is 3.5 cm. No extrauterine abnormalities observed. There has been appropriate interval growth. No abnormality is seen. heart and outflow tract views are less than optimally seen however today due to lie. The following additional anatomic structures are identified and felt to be sonographically unremarkable: cranium, choroid plexus, cavum, cerebellum, posterior fossa, face and profile, lungs, diaphragm, left-sided stomach, abdominal wall cord insertion, three-vessel umbilical cord, kidneys and bladder, spine, upper and lower extremities. BIOMETRY CHART: BPD 4.1 cm = 18 weeks 2 days Head circumference 15.2 cm = 18 weeks 2 days Abdominal circumference 13.3 cm = 18 weeks 5 days Femur length 3.0 cm = 19 weeks 2 days Humeral length 2.7 cm = 18 weeks 3 days Cerebellar diameter 1.8 cm = 18 weeks 0 days HC/AC ratio normal 1.15 Cephalic index normal 0.74 Estimated weight 263 grams, 0 pounds 9 ounces, 76th percentile for 18 weeks 1 day, less than 3rd percentile for 26 weeks 5 days. IMPRESSION: Viable single intrauterine gestation at 18 weeks 4 days by today's composite sonographic criteria. Expected gestational age estimate based on prior sonography is 18 weeks 1 day. MAHESH by prior sonography 02/20/2017. heart views less than optimally seen. Signed by Chet Samson MD 09/20/2016 04:02 P
== END ==
LOC: M SMT 13:47
PROVIDERS: ATTEND Advanced Practice Midwife
DX: Z34.82 Encounter for supervision of other normal pregnancy, second trimester (principal); Z36 Encounter for antenatal screening of mother; Z3A.18 18 weeks gestation of pregnancy

== ENCOUNTER → 2016-10-05 | Outpatient (CLI) | payer OTHER, MEDICAID ==
[2016-10-05 13:51] LABS: ALBUMIN 3.1 GM/DL (3.2-5.2); ANION GAP 6 MEQ/L (8-16); BLOOD UREA NITROGEN 7 MG/DL (7-18); CALCIUM LEVEL 8.8 MG/DL (8.5-10.1); CARBON DIOXIDE LEVEL 27 MEQ/L (21-32); CHLORIDE LEVEL 105 MEQ/L (98-107); CREATININE FOR GFR 0.56 MG/DL (0.55-1.02); GLUCOSE, FASTING 75 MG/DL (70-105); PHOSPHORUS LEVEL 3.2 MG/DL (2.5-4.9); POTASSIUM SERUM 3.8 MEQ/L (3.5-5.1); SODIUM LEVEL 138 MEQ/L (136-145)
[2016-10-05 14:07] LABS: MEAN CORPUSCULAR HEMOGLOBIN 32.3 pg (27.0-33.0); MEAN CORPUSCULAR HGB CONC 34.4 g/dl (32.0-36.5); MEAN CORPUSCULAR VOLUME 93.9 fl (80.0-96.0); RED CELL DISTRIBUTION WIDTH 12.7 % (11.5-14.5)
[2016-10-05 15:00] LABS: BASOPHILS 1 % (0-4); EOSINOPHILS 1 % (0-5)
== END ==
LOC: M SMT 10:11
PROVIDERS: ATTEND Advanced Practice Midwife
DX: N20.0 Calculus of kidney (principal)

== ENCOUNTER → 2016-10-29 | Outpatient (CLI) | payer OTHER ==
[~2016-10-29] MED LIST: ACET50TA PO; IBUP-1114 PO; PRENTAB9 PO
== END ==
LOC: M LAB 15:58
PROVIDERS: ATTEND Advanced Practice Midwife
DX: R42 Dizziness and giddiness (principal)

== ENCOUNTER → 2016-11-06 | Outpatient (CLI) | payer OTHER, MEDICAID ==
--- NOTE | 2016-11-06 23:36 | REP ---
Clinical: Anatomical evaluation. Comparison: 09/20/2016 . Findings: Examination demonstrates a single live intrauterine in breech presentation. motion is identified by technologist. Placenta is noted posteriorly and grade zero without evidence for placenta previa or abruption. Amniotic fluid volume is normal. Cervix measures 4.8 cm in length and appears closed. No evidence for nuchal cord. Gestational age by LMP 33 weeks 3 days with MAHESH 12/22/2016 . Gestational age by current measurements 25 weeks 0 days with MAHESH 02/19/2017 . FHR equals 147 beats per minute. Estimated weight 816 grams ( 61st percentile). Anatomical assessment demonstrates normal structures including cranium, choroid plexus, cavum, cerebellum/posterior fossa, facial features, lungs, four-chamber heart/ventricular outflow tracts, diaphragm, stomach, cord insertion/three-vessel cord, kidneys/bladder, spine, and extremities. Impression: Single live intrauterine in breech presentation demonstrating appropriate interval growth when compared to first ultrasound. Anatomical assessment is complete and normal. Signed by Kobe Ghosh MD 11/06/2016 11:27 P
== END ==
LOC: M SMT 13:37
PROVIDERS: ATTEND Obstetrics & Gynecology
DX: O32.1XX0 Maternal care for breech presentation, not applicable or unspecified (principal); Z36 Encounter for antenatal screening of mother; Z3A.33 33 weeks gestation of pregnancy

== ENCOUNTER → 2017-01-23 | Outpatient (CLI) | payer OTHER ==
[2017-01-23 13:06] LABS: MEAN CORPUSCULAR HEMOGLOBIN 31.7 pg (27.0-33.0); MEAN CORPUSCULAR HGB CONC 33.9 g/dl (32.0-36.5); MEAN CORPUSCULAR VOLUME 93.5 fl (80.0-96.0); RED CELL DISTRIBUTION WIDTH 13.7 % (11.5-14.5); WHITE BLOOD COUNT 8.7 10^3/uL (4.0-10.0)
[2017-01-23 13:40] LABS: THYROXINE (T4) 10.3 UG/DL (6.0-11.6)
== END ==
LOC: M SMT 09:12
PROVIDERS: ATTEND Advanced Practice Midwife
DX: R00.2 Palpitations (principal)

== ENCOUNTER 2017-02-08 09:22 | Inpatient (IN) | payer OTHER ==
[~2017-02-08] VITALS: Ht 157.5 cm; Wt 70.0 kg
[2017-02-08] VITALS (31 sets, daily range): BP systolic 118–186; BP diastolic 71–114
[2017-02-08] MEDS ORDERED: PRENTAB9 PO (09:33)
[2017-02-08] MEDS ORDERED: LR 1,000 ML IV SCH ×2 (10:03→18:57)
[2017-02-08] MEDS ORDERED: LACTATED RINGER'S 1000 ML IV STA (10:03)
[2017-02-08] MEDS ORDERED: OXYTOCIN DRIP 30 UNITS in APPROPRIATE DILUENT 1 EA IV SCH ×2 (10:15→18:57)
[2017-02-08 11:00] LABS: MEAN CORPUSCULAR HEMOGLOBIN 31.7 pg (27.0-33.0); MEAN CORPUSCULAR HGB CONC 34.7 g/dl (32.0-36.5); MEAN CORPUSCULAR VOLUME 91.2 fl (80.0-96.0); RED CELL DISTRIBUTION WIDTH 13.4 % (11.5-14.5); WHITE BLOOD COUNT 9.8 10^3/uL (4.0-10.0)
[2017-02-08 11:54] LABS: ALT/SGPT 22 U/L (12-78); AST/SGOT 21 U/L (15-37); BILIRUBIN,TOTAL 0.4 MG/DL (0.2-1.0); CREATININE FOR GFR 0.77 MG/DL (0.55-1.02); URIC ACID 6.6 MG/DL (2.6-6.0)
[2017-02-08] MEDS ORDERED: FENTANYL 2MCG/ML ROPIVACAINE 0.2% IN 0.9% NACL 200ML IVBAG As Ordered ONE (13:00)
[2017-02-08] MEDS ORDERED: REFRIGERATOR IV KEYS XX PRN (14:45)
[2017-02-08] MEDS ORDERED: LACTATED RINGER'S 1000 ML IV PRN (14:45)
[2017-02-08] MEDS ORDERED: diphenhydrAMINE INJ 50MG/ML VIAL (J1200) IV PRN (14:45)
[2017-02-08] MEDS ORDERED: ONDANSETRON 4MG/2ML VIAL (J2405) IV PRN ×2 (14:45→19:00)
[2017-02-08] MEDS ORDERED: FENTANYL/ROPIVACAINE/NACL BAG 200 ML EPIDURAL SCH (14:45)
[2017-02-08] MEDS ORDERED: EPIDURAL/PCA KEYS XX PRN (14:45)
[2017-02-08] MEDS ORDERED: NALOXONE INJ 0.4 MG/1 ML VIAL (J2310) IV PRN (14:45)
[2017-02-08] MEDS ORDERED: EPIDURAL COMMENT XX SCH (14:45)
[2017-02-08] MEDS ORDERED: ePHEDrine SULFATE 25 MG/5 ML(5MG/ML) SYRINGE IV PRN (14:45)
[2017-02-08] MEDS ORDERED: TERBUTALINE SULFATE 1 MG/ML VIAL (J3105) As Ordered ONE (15:53)
[2017-02-08] MEDS ORDERED: PROPOFOL 200 MG/20 ML VIAL As Ordered ONE (15:56)
[2017-02-08] MEDS ORDERED: LIDOCAINE 1% SDV INJ 30 ML VIAL As Ordered ONE (15:58)
[2017-02-08] MEDS ORDERED: PHENYLephrine HCL 500 MCG/5 ML (100MCG/ML) SYRINGE (J2370) As Ordered ONE (15:58)
[2017-02-08] MEDS ORDERED: fentaNYL 100 MCG/2 ML INJECTION (J3010) As Ordered ONE (15:58)
[2017-02-08] MEDS ORDERED: OXYTOCIN INJ 10 UNITS/ML VIAL (J2590) As Ordered ONE (15:58)
[2017-02-08] MEDS ORDERED: ePHEDrine SULFATE 25 MG/5 ML(5MG/ML) SYRINGE As Ordered ONE (15:58)
[2017-02-08] MEDS ORDERED: ONDANSETRON 4MG/2ML VIAL (J2405) As Ordered ONE (15:58)
[2017-02-08] MEDS ORDERED: MIDAZOLAM INJ 2 MG/2 ML VIAL (J2250) As Ordered ONE (15:59)
[2017-02-08 18:34] LABS: CORD GAS ABE A -8.5; CORD GAS HCO3 A 16.9 MEQ/L; CORD GAS O2 SAT A 92.3 %; CORD GAS PCO2 A 35.6 mmHg; CORD GAS PH A 7.295 UNITS; CORD GAS SBC A 17.7 MEQ/L
[2017-02-08 18:35] LABS: CORD GAS PO2 A 50.2 mmHg
[2017-02-08 18:36] LABS: CORD GAS ABE V -7.9; CORD GAS HCO3 V 17.7 MEQ/L; CORD GAS O2 SAT V 88.4 %; CORD GAS PCO2 V 37.3 mmHg; CORD GAS PH V 7.295 UNITS; CORD GAS PO2 V 42.7 mmHg; CORD GAS TCO2 V 18.9 MEQ/L
[2017-02-08] MEDS ORDERED: PROMETHAZINE 25 MG TAB PO PRN (19:00)
[2017-02-08] MEDS ORDERED: DIBUCAINE 1% OINTMENT 30GM TOP PRN (19:00)
[2017-02-08] MEDS ORDERED: DOCUSATE SODIUM 100 MG CAP PO PRN (19:00)
[2017-02-08] MEDS ORDERED: RHOGAM 300 MCG (1500 IU) INJ (J2790) IM SCH (19:00)
[2017-02-08] MEDS ORDERED: MEASLES,MUMPS,RUBELLA VACCINE INJ (MMR-II) (90707) SC SCH (19:00)
[2017-02-08] MEDS ORDERED: ACETAMINOPHEN 500 MG TAB PO PRN (19:00)
[2017-02-08] MEDS: IBUPROFEN 800 MG TAB PO PRN (23:27)
[2017-02-09 06:33] VITALS: BP 146/92
[2017-02-09] MEDS: PRENATAL VITAMINS CHEWABLE TABLET PO SCH (08:26)
[2017-02-09] MEDS: IBUPROFEN 800 MG TAB PO PRN (08:26)
[2017-02-09 18:00] VITALS: BP 141/80
[2017-02-10 06:13] VITALS: BP 139/80
[2017-02-10] MEDS: PRENATAL VITAMINS CHEWABLE TABLET PO SCH (08:43)
[2017-02-10] MEDS ORDERED: IBUP-1114 PO (08:47)
[2017-02-10] MEDS ORDERED: ACET50TA PO (08:47)
[2017-02-15 00:06] LABS: GC Carboxy THC 288 ng/mL (Cutoff=10)
== END 2017-02-10 13:00 | disposition home or self-care (01) | DRG 560 ==
LOC: M LDI 09:22 → M OBS 21:00
PROVIDERS: ADMIT Obstetrics & Gynecology; ATTEND Obstetrics & Gynecology
PROC: 10D07Z6 Extraction of Products of Conception, Vacuum, Via Natural or Artificial Opening (ICD-10-PCS; principal; 2017-02-08)
PROC: 0HQ9XZZ Repair Perineum Skin, External Approach (ICD-10-PCS; 2017-02-08)
DX: O42.02 Full-term premature rupture of membranes, onset of labor within 24 hours of rupture (principal); O69.89X0 Labor and delivery complicated by other cord complications, not applicable or unspecified; O70.0 First degree perineal laceration during delivery; Z37.0 Single live birth; Z3A.38 38 weeks gestation of pregnancy

== ENCOUNTER 2020-01-03 19:27 | Emergency (ER) | payer OTHER ==
[~2020-01-03] VITALS: Ht 157.5 cm; Wt 55.5 kg
[~2020-01-03 19:27] MED LIST changes: -ACET50TA PO; +MAPA500T2 PO
[2020-01-03] MEDS ORDERED: NS 1,000 ML IV ONE (20:15)
[2020-01-03 20:23] LABS: BASO % 0.3 % (0.0-1.0); EOS # 0.4 10^3/uL (0.0-0.5); EOS % 3.3 % (0.0-3.0); HEMATOCRIT 40.9 % (36.0-47.0); HEMOGLOBIN 14.3 g/dl (12.0-15.5); LYMPH # 3.6 10^3/uL (1.5-5.0); LYMPH % 33.7 % (24.0-44.0); MEAN CORPUSCULAR HEMOGLOBIN 31.8 pg (27.0-33.0); MEAN CORPUSCULAR VOLUME 90.9 fl (80.0-96.0); MONO # 0.6 10^3/uL (0.0-0.8); MONO % 5.6 % (0.0-5.0); NEUTROPHILS # 6.1 10^3/uL (1.5-8.5); NEUTROPHILS % 56.8 % (36.0-66.0); PLATELET COUNT, AUTOMATED 294 10^3/uL (150-450); WHITE BLOOD COUNT 10.7 10^3/uL (4.0-10.0)
[2020-01-03 21:05] LABS: BLOOD UREA NITROGEN 12 MG/DL (7-18); CALCIUM LEVEL 9.8 MG/DL (8.5-10.1); CARBON DIOXIDE LEVEL 24 MEQ/L (21-32); CHLORIDE LEVEL 105 MEQ/L (98-107); GLOMERULAR FILTRATION RATE > 60.0 (>60); GLUCOSE, FASTING 87 MG/DL (70-100); HCG, SERUM QUANTITATIVE 112427 MIU/ML; POTASSIUM SERUM 3.5 MEQ/L (3.5-5.1); SODIUM LEVEL 135 MEQ/L (136-145)
--- NOTE | 2020-01-03 21:05 | REPVR ---
PROCEDURE INFORMATION: Exam: US First Trimester, Transabdominal Exam date and time: 01/03/2020 8:59 PM Age: 24 years old Clinical indication: Lmp or gestational age (in weeks): 9wks4d; Other: Vag bleeding; ; Additional info: 9wks with vag bleed TECHNIQUE: Imaging protocol: Real-time transabdominal obstetrical ultrasound of the maternal pelvis and a first trimester , less than 14 weeks 0 days, with image documentation. COMPARISON: No relevant prior studies available. FINDINGS: Gestation: Single intrauterine fetus with motion. Embryonic/ heart rate: heartbeat of 170 bpm. Placenta: Large circumferential subchorionic hemorrhage surrounding the gestational sac. Amniotic fluid: Amniotic fluid is normal for gestational age. BIOMETRY: [place]-Rump length: [place]-rump length is 2.7 cm suggesting an age of 9 weeks 4 days. The EDC is 08/03/2020. MATERNAL: Uterus: The uterus measures 9.1 cm in its cephalocaudad dimension and 5.6 x 8.9 cm in its AP and lateral dimensions. Cervix: Unremarkable. Right adnexa: The right ovary measures 4.6 x 1.7 x 1.8 cm. Left adnexa: The left ovary measures 3.7 x 1.9 x 3.6 cm with a small hyperechoic focus measuring 5 x 7 x 5 mm. Intraperitoneal space: No intraperitoneal free fluid. IMPRESSION: 1. Single live intrauterine fetus with an estimated age of 9 weeks 4 days. The EDC is 08/03/2020. 2. Large circumferential subchorionic hemorrhage. 3. Small hyperechoic focus in the left ovary which may reflect fat measuring 5 x 5 x 7 mm. 4. Otherwise negative pelvic sonogram. Electronically signed by: Gomez Cox On 01/03/2020 21:05:38 PM
[2020-01-03 22:59] VITALS: BP 128/80
== END 2020-01-03 23:01 | disposition home or self-care (01) ==
LOC: M ED 19:27
DX: O20.8 Other hemorrhage in early pregnancy (principal); Z3A.09 9 weeks gestation of pregnancy; Z88.0 Allergy status to penicillin

== ENCOUNTER 2020-01-06 18:29 | Emergency (ER) | payer OTHER ==
[~2020-01-06] VITALS: Ht 157.5 cm; Wt 55.0 kg
[2020-01-06] MEDS ORDERED: MORPHINE 4 MG/ML 1ML VIAL/SYRINGE (J2270) IV ONE (19:15)
[2020-01-06] MEDS ORDERED: ONDANSETRON 4MG/2ML VIAL IV ONE (19:15)
[2020-01-06] MEDS ORDERED: NS 1,000 ML IV ONE (19:15)
[2020-01-06 19:49] LABS: BASO % 0.3 % (0.0-1.0); EOS # 0.3 10^3/uL (0.0-0.5); HEMATOCRIT 40.2 % (36.0-47.0); HEMOGLOBIN 14.2 g/dl (12.0-15.5); LYMPH # 3.2 10^3/uL (1.5-5.0); LYMPH % 31.6 % (24.0-44.0); MEAN CORPUSCULAR HEMOGLOBIN 32.1 pg (27.0-33.0); MEAN CORPUSCULAR HGB CONC 35.3 g/dl (32.0-36.5); MEAN CORPUSCULAR VOLUME 90.7 fl (80.0-96.0); MONO # 0.7 10^3/uL (0.0-0.8); MONO % 6.8 % (0.0-5.0); NEUTROPHILS # 5.9 10^3/uL (1.5-8.5); PLATELET COUNT, AUTOMATED 289 10^3/uL (150-450); RED BLOOD COUNT 4.43 10^6/uL (4.00-5.40); WHITE BLOOD COUNT 10.1 10^3/uL (4.0-10.0)
[2020-01-06 20:02] LABS: AMORPHOUS SEDIMENT SMALL (NEGATIVE); APPEARANCE, URINE CLOUDY (CLEAR); BACTERIA, URINE AUTO NEGATIVE (NEGATIVE); BILIRUBIN, URINE AUTO NEGATIVE (NEGATIVE); BLOOD, URINE BLOOD 3+ (NEGATIVE); COLOR, URINE YELLOW (YELLOW); GLUCOSE, URINE (UA) AUTO NEGATIVE (NEGATIVE); KETONE, URINE AUTO NEGATIVE (NEGATIVE); LEUKOCYTE ESTERASE, URINE AUTO NEGATIVE (NEGATIVE); MUCUS, URINE SMALL (NEGATIVE); NITRITE, URINE AUTO NEGATIVE (NEGATIVE); PROTEIN, URINE AUTO NEGATIVE (NEGATIVE); RBC, URINE AUTO 13 /HPF (0-3); SPECIFIC GRAVITY URINE AUTO 1.009 (1.002-1.035); SQUAMOUS EPITHELIAL CELL UR AU 1 /HPF (0-6); UROBILINOGEN, URINE AUTO 0.2 mg/dL (0.0-2.0); WBC, URINE AUTO 1 /HPF (0-3)
[2020-01-06 20:35] LABS: ALBUMIN 3.9 GM/DL (3.2-5.2); ALT/SGPT 16 U/L (12-78); BILIRUBIN,TOTAL 0.3 MG/DL (0.2-1.0); BLOOD UREA NITROGEN 10 MG/DL (7-18); CALCIUM LEVEL 9.5 MG/DL (8.5-10.1); CARBON DIOXIDE LEVEL 26 MEQ/L (21-32); CHLORIDE LEVEL 105 MEQ/L (98-107); CREATININE FOR GFR 0.64 MG/DL (0.55-1.30); GLOMERULAR FILTRATION RATE > 60.0 (>60); GLUCOSE, FASTING 83 MG/DL (70-100); HCG, SERUM QUANTITATIVE 108605 MIU/ML; POTASSIUM SERUM 3.9 MEQ/L (3.5-5.1); SODIUM LEVEL 136 MEQ/L (136-145); TOTAL PROTEIN 7.1 GM/DL (6.4-8.2)
--- NOTE | 2020-01-06 20:55 | REPVR ---
PROCEDURE INFORMATION: Exam: US First Trimester, Transabdominal Exam date and time: 01/06/2020 8:08 PM Age: 24 years old Clinical indication: Lmp or gestational age (in weeks): 08/22/19; Antepartum complications; Bleeding; ; Additional info: Large subchorionic, inc bleeding and pain TECHNIQUE: Imaging protocol: Real-time transabdominal obstetrical ultrasound of the maternal pelvis and a first trimester , less than 14 weeks 0 days, with image documentation. COMPARISON: 1ST TRIMESTER US 01/03/2020 8:34 PM FINDINGS: Gestation: Single living IUP. motion is present. Embryonic/ heart rate: 172 bpm. Placenta: There is a large subchorionic bleed measuring approximately 8.3 x 2.9 x 4.0 cm. Additional small cystic area is noted adjacent to the gestational sac measuring 1.8 cm. Amniotic fluid: Amniotic fluid is normal for gestational age. BIOMETRY: Gestational age (AUA): 10 weeks 2 days. [place]-Rump length: 33 mm. MATERNAL: Uterus: Unremarkable. Cervix: Unremarkable. Right adnexa: Unremarkable. Left adnexa: Unremarkable. Intraperitoneal space: No intraperitoneal free fluid. IMPRESSION: 1. Single living IUP. Estimated gestational age is 10 weeks 2 days. 2. Large subchorionic bleed. Electronically signed by: Nimesh Mg On 01/06/2020 20:54:39 PM
[2020-01-06 22:39] VITALS: BP 131/89
== END 2020-01-06 22:56 | disposition home or self-care (01) ==
LOC: M ED 18:29
DX: O20.8 Other hemorrhage in early pregnancy (principal); Z3A.10 10 weeks gestation of pregnancy; O21.9 Vomiting of pregnancy, unspecified; Z88.0 Allergy status to penicillin
CPT/HCPCS: 76801; 80053; 81001; 84702; 85025; 87086; 93976; 96361; 96374; 96375; 99284; J2270; J2405

== ENCOUNTER → 2020-01-18 | Outpatient (CLI) | payer OTHER ==
[2020-01-18 18:02] LABS: BASO % 0.2 % (0.0-1.0); EOS # 0.3 10^3/uL (0.0-0.5); HEMATOCRIT 35.1 % (36.0-47.0); LYMPH # 2.1 10^3/uL (1.5-5.0); LYMPH % 21.3 % (24.0-44.0); MEAN CORPUSCULAR HEMOGLOBIN 32.5 pg (27.0-33.0); MEAN CORPUSCULAR HGB CONC 34.2 g/dl (32.0-36.5); MEAN CORPUSCULAR VOLUME 95.1 fl (80.0-96.0); MONO # 0.6 10^3/uL (0.0-0.8); MONO % 5.8 % (0.0-5.0); NEUTROPHILS # 6.9 10^3/uL (1.5-8.5); NEUTROPHILS % 69.4 % (36.0-66.0); PLATELET COUNT, AUTOMATED 322 10^3/uL (150-450); RED BLOOD COUNT 3.69 10^6/uL (4.00-5.40)
[2020-01-18 18:45] LABS: HEPATITIS C VIRUS ABY INDEX 0.1 INDEX (<0.8); HIV 1&2 SCREEN CENTAUR NEGATIVE (NEGATIVE)
[2020-01-19 21:45] LABS: CHLAMYDIA DNA AMPLIFICATION NEGATIVE (NEGATIVE); GC DNA AMPLIFICATION NEGATIVE (NEGATIVE)
== END ==
LOC: M PLALAB 12:54
PROVIDERS: ATTEND Advanced Practice Midwife
DX: Z34.81 Encounter for supervision of other normal pregnancy, first trimester (principal); Z3A.00 Weeks of gestation of pregnancy not specified

== ENCOUNTER → 2020-01-18 | Outpatient (CLI) | payer OTHER ==
--- NOTE | 2020-01-27 08:12 | REP ---
LIMITED OBSTETRIC ULTRASOUND CLINICAL: Follow-up subchorionic hemorrhage. COMPARISON: 01/06/2020. TECHNIQUE: Transabdominal obstetrical ultrasound with color Doppler evaluation. FINDINGS: Ultrasound examination demonstrates a single live intrauterine . Current biometrical measurements 12 weeks 1 day gestational age with estimated date of delivery 07/31/2020. heart rate equals 174 beats per minute. The placenta is noted anterofundally and grade 1 without placenta previa or abruption. Amniotic fluid volume is normal. Cervix measures 3.8 cm in length. A subchorionic hemorrhage is again identified along the lateral aspect of the uterus and gestational sac left lateral. Uterus and gestational sac currently measures approximately 10.7 x 3.9 x 4.9 cm (increased from 8.3 x 4.0 x 2.9) cm. IMPRESSION: * Single live intrauterine demonstrating appropriate interval growth. * Subchorionic hemorrhage again noted and mildly increased. Patient is noted to be bleeding. MTDD
== END ==
LOC: M WHC 12:18
PROVIDERS: ATTEND Obstetrics & Gynecology
DX: O20.8 Other hemorrhage in early pregnancy (principal); Z3A.12 12 weeks gestation of pregnancy

== ENCOUNTER → 2020-02-10 | Outpatient (REF) | payer OTHER | LOC: M SFHCWAGY 17:00 | PROVIDERS: ATTEND Obstetrics & Gynecology | DX: Z34.92 Encounter for supervision of normal pregnancy, unspecified, second trimester (principal) ==

== ENCOUNTER → 2020-03-08 | Outpatient (CLI) | payer OTHER ==
--- NOTE | 2020-03-08 15:17 | REP ---
INDICATION: ANATOMY. COMPARISON: Comparison sonography January 18, 2020.. TECHNIQUE: Transabdominal obstetric sonography. FINDINGS: Scanning through the gravid uterus demonstrates a viable single intrauterine gestation in transverse, head to the maternal right lie. motion is observed and heart rate is recorded at 158 beats per minute. A anterior placenta is seen, grade 0, without evidence of placenta previa. Amniotic fluid is subjectively normal. Closed cervical length is measured at 3.2 cm transabdominally. No extrauterine abnormality is observed. There is however, evidence of a probable subchorionic hemorrhage again visualized currently measuring 9.5 x 6.9 x 3.9 cm on today's exam. This is along the left lateral anterior uterus. No anomaly is seen. The following anatomic structures are identified and felt to be sonographically unremarkable: cranium, cavum, cerebellum and posterior fossa, face and profile, lungs, four-chamber heart with left and right ventricular outflow tract views, diaphragm, left-sided stomach, abdominal wall cord insertion, three-vessel umbilical cord, kidneys and bladder, spine, and upper and lower extremities. There are small bilateral choroid plexus cysts noted. Placental cord insertion could not be visualized today due to presentation. Biometry chart: BPD 4.0 cm, 18 weeks 1 day Head circumference 15.5 cm, 18 weeks 3 days Abdominal circumference 13.2 cm, 18 weeks 5 days Femur length 2.8 cm, 18 weeks 4 days Humeral length 2.7 cm, 18 weeks 5 days HC AC ratio normal 1.17 Cephalic index normal 0.71 Estimated weight 250 g, 0 lb 8 oz, 31st percentile for 18 weeks 6 days IMPRESSION: Viable single intrauterine gestation at 18 weeks 4 days by today's composite sonographic criteria. MAHESH by today's sonography August 05, 2020. No complication identified. Small bilateral choroid plexus cysts are noted. There is evidence of a subchorionic fluid collection consistent with a hemorrhage again noted as above. <Electronically signed by Shahid Samson > 03/08/20 [id number]
== END ==
LOC: M WHC 12:40
PROVIDERS: ATTEND Obstetrics & Gynecology
DX: Z34.92 Encounter for supervision of normal pregnancy, unspecified, second trimester (principal); Z36.89 Encounter for other specified antenatal screening; Z3A.18 18 weeks gestation of pregnancy

== ENCOUNTER → 2020-03-10 | Outpatient (CLI) | payer OTHER | LOC: M PLALAB 09:59 | PROVIDERS: ATTEND Advanced Practice Midwife | DX: Z34.82 Encounter for supervision of other normal pregnancy, second trimester (principal); Z3A.00 Weeks of gestation of pregnancy not specified ==

== ENCOUNTER → 2020-03-22 | Outpatient (CLI) | payer OTHER ==
--- NOTE | 2020-03-22 17:26 | REP ---
INDICATION: F/U ANATOMY. COMPARISON: 03/08/2020. TECHNIQUE: Real-time sonographic evaluation of the gravid uterus performed. FINDINGS: Estimated gestational age is20 weeks 6 days, EDC 08/03/2020. Today's measurements indicate appropriate growth. Presentation: Cephalic Placenta anterior, grade 2, without evidence of placenta previa. A large subchorionic fluid collection is again visualized inferiorly measuring 16.9 x 13.2 by X 2.4 cm, appearing increased compared to the prior study. The cord inserts at the mid aspect of the placenta. heart rate is recorded at 152 beats per minute. Amniotic fluid is subjectively normal in quantity, it contains mobile debris. Closed cervical length is measured at 3.2 cm. Biometry chart: BPD: 46 mm, 20 weeks 0 days, 27th percentile. HC: 182 mm, 20 weeks 4 days, 40th percentile AC: 156 mm, 20 weeks 6 days, 48th percentile Femur length: 35 mm, 21 weeks 0 days, 52nd percentile HC to AC ratio: 1.16, normal range 1.06-1.24. Estimated weight: 379g, 40th percentile. Three tiny cystic structures are visualized in the right choroid plexus less than 3 mm in diameter. IMPRESSION: Viable single intrauterine gestation as above. Appropriate growth. Large subchorionic hemorrhage as increased since prior study. <Electronically signed by Jairon Tenorio > 03/22/20 [id number]
== END ==
LOC: M WHC 13:16
PROVIDERS: ATTEND Advanced Practice Midwife
DX: O46.92 Antepartum hemorrhage, unspecified, second trimester (principal); Z3A.20 20 weeks gestation of pregnancy

== ENCOUNTER 2020-05-08 19:49 | Emergency (ER) | payer OTHER ==
[2020-05-08] MEDS ORDERED: NS 1,000 ML IV ONE (20:15)
[2020-05-08] MEDS ORDERED: ACETAMINOPHEN TAB 650MG DOSE (2X325MG) PO ONE (20:15)
[2020-05-08 20:34] LABS: BASO % 0.2 % (0.0-1.0); EOS # 0.4 10^3/uL (0.0-0.5); EOS % 2.9 % (0.0-3.0); HEMATOCRIT 25.8 % (36.0-47.0); HEMOGLOBIN 7.9 g/dl (12.0-15.5); LYMPH # 2.1 10^3/uL (1.5-5.0); LYMPH % 16.9 % (24.0-44.0); MEAN CORPUSCULAR HEMOGLOBIN 29.5 pg (27.0-33.0); MEAN CORPUSCULAR HGB CONC 30.6 g/dl (32.0-36.5); MEAN CORPUSCULAR VOLUME 96.3 fl (80.0-96.0); MONO # 0.8 10^3/uL (0.0-0.8); MONO % 6.2 % (0.0-5.0); NEUTROPHILS # 9.1 10^3/uL (1.5-8.5); NEUTROPHILS % 72.7 % (36.0-66.0); PLATELET COUNT, AUTOMATED 467 10^3/uL (150-450); RED BLOOD COUNT 2.68 10^6/uL (4.00-5.40); WHITE BLOOD COUNT 12.5 10^3/uL (4.0-10.0)
[2020-05-08] MEDS: GASTROGRAFIN SOLUTION 30ML PO SCH ×2 (21:01→21:33)
[2020-05-08 21:19] LABS: ALBUMIN 2.5 GM/DL (3.2-5.2); ALT/SGPT 19 U/L (12-78); BILIRUBIN,DIRECT < 0.1 MG/DL (0.0-0.2); BILIRUBIN,TOTAL 0.3 MG/DL (0.2-1.0); BLOOD UREA NITROGEN 10 MG/DL (7-18); CALCIUM LEVEL 8.9 MG/DL (8.5-10.1); CARBON DIOXIDE LEVEL 27 MEQ/L (21-32); CHLORIDE LEVEL 106 MEQ/L (98-107); CREATININE FOR GFR 0.69 MG/DL (0.55-1.30); GLOMERULAR FILTRATION RATE > 60.0 (>60); GLUCOSE, FASTING 120 MG/DL (70-100); LIPASE 123 U/L (73-393); POTASSIUM SERUM 4.5 MEQ/L (3.5-5.1); SODIUM LEVEL 139 MEQ/L (136-145); TOTAL PROTEIN 6.1 GM/DL (6.4-8.2)
[2020-05-08] MEDS ORDERED: ACET1TAB55 PO (21:43)
[2020-05-08] MEDS ORDERED: IBUP-1022 PO (21:43)
[2020-05-08] MEDS ORDERED: OXYC-517 PO (21:43)
[2020-05-08 21:45] VITALS: BP 133/73
[2020-05-08] MEDS ORDERED: ISOVUE-370 76% 100ML VIAL As Ordered ONE (22:17)
--- NOTE | 2020-05-08 22:59 | REPVR ---
PROCEDURE INFORMATION: Exam: CT Abdomen And Pelvis With Contrast Exam date and time: 05/08/2020 10:25 PM Age: 24 years old Clinical indication: Fever; Prior surgery; Surgery date: 3-7 days post-operative; Surgery type: Csec 6 days ago; Additional info: 6 days S/P csection, fever, llq pain TECHNIQUE: Imaging protocol: Computed tomography of the abdomen and pelvis with intravenous contrast. Radiation optimization: All CT scans at this facility use at least one of these dose optimization techniques: automated exposure control; mA and/or kV adjustment per patient size (includes targeted exams where dose is matched to clinical indication); or iterative reconstruction. Contrast material: ISOVUE 370; Contrast volume: 100 ml; Contrast route: INTRAVENOUS (IV); COMPARISON: CT ABD PELVIS W/O CONTRAST 01/09/2015 11:55 AM FINDINGS: Liver: Normal. No mass. Gallbladder and bile ducts: The gallbladder is somewhat contracted with no stones. Pancreas: Normal. No ductal dilation. Spleen: Normal. No splenomegaly. Adrenal glands: Normal. No mass. Kidneys and ureters: Nonobstructing bilateral renal calculi. Stomach and bowel: Mild stool and gas throughout the colon. 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 Intraperitoneal space: Unremarkable. No free air. No significant fluid collection. Vasculature: Unremarkable. No abdominal aortic aneurysm. Lymph nodes: Unremarkable. No enlarged lymph nodes. Urinary bladder: There is a large collection of material with gas and low-attenuation extending along the bladder flap measuring 10.2 x 5.1 x 6.0 cm which is suspicious for abscess. There is some low attenuation extending along the left lateral aspect of the endocervical canal. Reproductive: The uterus is mildly prominent measuring 6.8 cm in its cephalocaudad dimension with mild heterogeneous prominence of the endometrium measuring 21 mm. Bones/joints: Unremarkable. No acute fracture. Soft tissues: Low transverse pelvic incision with skin thierry and underlying subcutaneous infiltration and gas consistent with recent incision. IMPRESSION: 1. Findings consistent with recent . The uterus is enlarged consistent with state. There is heterogeneous thickening of the endometrium measuring 21 mm. Some retained products of conception are not excluded. 2. Large collection of low-attenuation soft tissue material and gas within the bladder flap interposed between the uterus and bladder dome measuring 10.2 x 5.1 x 6.0 cm which is viewed with suspicion for abscess. 3. Nonobstructing bilateral renal calculi. Electronically signed by: Gomez Cox On 05/08/2020 22:59:28 PM
[2020-05-08] MEDS ORDERED: PIPERACILLIN/TAZOBACTAM SOD 4.5 GM in D5W MINI-BAG PLUS 50 ML IV ONE (23:45)
[2020-05-08] MEDS ORDERED: NS 1,000 ML IV SCH (23:59)
[2020-05-09] MEDS ORDERED: IBUPROFEN 600MG TAB PO ONE (00:15)
[2020-05-09 01:03] LABS: RSV AMPLIFICATION NEGATIVE (NEGATIVE)
== END 2020-05-09 00:59 | disposition short-term general hospital (02) ==
LOC: M ED 19:49
DX: T81.43XA Infection following a procedure, organ and space surgical site, initial encounter (principal); L02.91 Cutaneous abscess, unspecified; N20.0 Calculus of kidney; Z88.0 Allergy status to penicillin; Z79.899 Other long term (current) drug therapy
CPT/HCPCS: 74177; 80048; 80076; 81001; 83690; 85025; 87086; 87631; 93041; 94760; 96361; 96365; 99285; J2543; Q9963; Q9967

== ENCOUNTER 2020-05-29 19:57 | Emergency (ER) | payer OTHER ==
[~2020-05-29] VITALS: Ht 157.5 cm; Wt 63.2 kg
[~2020-05-29 19:57] MED LIST changes: +ACET1TAB55 PO; +IBUP-1022 PO; +OXYC-517 PO
--- OUTSIDE RECORDS SUMMARY | 2020-05-29 20:06 | CCD ---
Author Author [facility] Organization [facility] Address Unknown Phone Unavailable Care Team Providers Care Pure Pak Machine Operator Name Role Phone Meera Andrea Unavailable PROBLEMS Type Condition ICD9-CM Code [id number] Code Onset Dates Condition S tatus SNOMED Code Notes Problem Hydronephrosis with renal and ureteral calculous obstructi on N13.2 Active 205548755 Problem Supervision of other normal Z34.80 Ac tive 276406228 Problem Tinea corporis 110.5 Active 80152600 Problem Renal lithiasis N20.0 Active 16163001 ALLERGIES Allergen (clinical drug ingredient) Drug/Non Drug Allergy do cumented on EMR Reaction Allergy Type Onset Date Status Penicillin (For Allergies Use Only) Rash Drug Allerg y Active ENCOUNTERS from 1996 to 2020-04-12 Encounter Location Date Provider Diagnosis [facility] [address] [place] [id number] Mar, Meera Andrea Other specified d isorders of amniotic fluid and membranes, second trimester, not applicable or unspecified O41.8X20 and 23 weeks gestation of Z3A.23 IMMUNIZATIONS No Information SOCIAL HISTORY Tobacco Use: Social History Observation Description Date Details (start date - stop date) Never Smoker Sex Assigned At : Social History Observation Description Sex Assigned At Unknown Tobacco Use: Question Answer Notes Are you a: never smoker REASON FOR REFERRAL No Information VITAL SIGNS Weight 144.6 lbs Mar, Weight-kg 65.59 kg Mar, Height 63 in Mar, BMI 25.615 kg/m2 Mar, Blood pressure systolic 114 mm Hg Mar, Blood pressure diastolic 70 mm Hg Mar, MEDICATIONS Medication SIG (Take, Route, Frequency, Duration) Notes Start Da te End Date Status 27-1 MG 1 tablet Orally Once a day Active Classic Neti Pot Sinus Wash 2300-700 MG as directed Na joie once daily as needed for 10 day(s) Mar, Not-Taking Ibuprofen 600 MG 1 tablet Orally Three times a day Not-Taking Guaifenesin 400 MG 1 tablet as needed Orally every 4 hrs for 7 d ay(s) Mar, Not-Taking Multivitamin Gummies Adult - Orally Not-Taking Zofran 4 MG 2 tablets Orally q8h, prn nausea Jun, Not-Taking TriNessa (28) 0.18/0.215/0.25 MG-35 MCG 1 tablet Orally Once a day Not-Taking Omeprazole 40 mg 1 capsule Orally twice a day for 15 day(s) Apr, Not-Taking Oxycodone-Acetaminophen 5-325 MG Orally every 6 hrs Not-Taking Flomax 0.4 MG 1 capsule 30 minutes after t he same meal each day Orally Once a day Not-Taking Nitrofurantoin Macrocrystal 100 MG 1 capsule with food or milk Orally Once a day Not-Taking PROCEDURES No Information RESULTS No Results REASON FOR VISIT 4WK PN MEDICAL (GENERAL) HISTORY Type Description Date Medical History kidney stones Hospitalization History childbirth Goals Section No Information Health Concerns No Information MEDICAL EQUIPMENT No Information MENTAL STATUS No Information FUNCTIONAL STATUS No Information ASSESSMENTS Encounter Date Diagnosis Assessment Notes Treatment Notes Treatm ent Clinical Notes Mar, Other specified disorders of amniotic fluid and membranes, second trimester, not applicable or unspecified (ICD-10 - O41.8X20) Mar, 23 weeks gestation of (ICD-10 - Z3A.23 ) PLAN OF TREATMENT Treatment Notes Test Name Order Date CBC - Complete Blood Count 2020-04-12 AB SCREEN (INDIRECT DIVYA)GEL Antibody Screen 2020-03 Type and Screen (D Rh Antibody Screen) 2020-04-12 Glucose Challenge Test 1 Hour 2020-04-12 Next Appt Details 2 Weeks Reason: Provider Name:Marta Bolivar, 2020-04-20 03:40:00 PM, [address] [place], [address], Provider Name:Tracey May, 2020-04 03:00:00 PM, [address] [place], [address], Follow Up:2 WeeksPrenatal Insurance Providers Payer Name Payer Address Payer Phone Insured Name Patient Relati onship to Insured Coverage Start Date Coverage End Date [facility] COMMUNITY PLAN [facility] [address] [facility] [phone] JAYNA SALINAS self
--- OUTSIDE RECORDS SUMMARY | 2020-05-29 20:06 | CCD ---
Author Author [facility] Organization [facility] Address Unknown Phone Unavailable Care Team Providers Care Life Assurance Representative Name Role Phone Tracey May Unavailable PROBLEMS Type Condition ICD9-CM Code [id number] Code Onset Dates Condition S tatus SNOMED Code Notes Problem Hydronephrosis with renal and ureteral calculous obstructi on N13.2 Active 731403114 Problem Supervision of other normal Z34.80 Ac tive 928482141 Problem Tinea corporis 110.5 Active 46668445 Problem Renal lithiasis N20.0 Active 66607148 ALLERGIES Allergen (clinical drug ingredient) Drug/Non Drug Allergy do cumented on EMR Reaction Allergy Type Onset Date Status Penicillin (For Allergies Use Only) Rash Drug Allerg y Active ENCOUNTERS from 1996 to 2020-03-29 Encounter Location Date Provider Diagnosis [facility] [address] [place] [id number] Jan, Tracey May 15 weeks gestation o f Z3A.15 and Hemorrhage in early , unspecified O20.9 IMMUNIZATIONS No Information SOCIAL HISTORY Tobacco Use: Social History Observation Description Date Details (start date - stop date) Never Smoker Sex Assigned At : Social History Observation Description Sex Assigned At Unknown Tobacco Use: Question Answer Notes Are you a: never smoker REASON FOR REFERRAL No Information VITAL SIGNS Weight 125.8 lbs Jan, Height 63 in Jan, BMI 22.284 kg/m2 Jan, Blood pressure systolic 116 mm Hg Jan, Blood pressure diastolic 70 mm Hg Jan, MEDICATIONS Medication SIG (Take, Route, Frequency, Duration) Notes Start Da te End Date Status 27-1 MG 1 tablet Orally Once a day Active Nitrofurantoin Macrocrystal 100 MG 1 capsule with food or milk Orally Once a day Not-Taking Oxycodone-Acetaminophen 5-325 MG Orally every 6 hrs Not-Taking Multivitamin Gummies Adult - Orally Not-Taking Classic Neti Pot Sinus Wash 2300-700 MG as directed Na joie once daily as needed for 10 day(s) Mar, Not-Taking Guaifenesin 400 MG 1 tablet as needed Orally every 4 hrs for 7 d ay(s) Mar, Not-Taking Ibuprofen 600 MG 1 tablet Orally Three times a day Not-Taking TriNessa (28) 0.18/0.215/0.25 MG-35 MCG 1 tablet Orally Once a day Not-Taking Omeprazole 40 mg 1 capsule Orally twice a day for 15 day(s) Apr, Not-Taking Flomax 0.4 MG 1 capsule 30 minutes after t he same meal each day Orally Once a day Not-Taking Zofran 4 MG 2 tablets Orally q8h, prn nausea Jun, Not-Taking PROCEDURES No Information RESULTS Component Value Reference Range URINE CULTURE Reviewed date:02/12/2020 08:19:17 Interpretation: Performing Lab:[facility], [facility] [address] [address] , ,[facility] OBS COMPLETE US Reviewed date:03/09/2020 16:25:37 Interpretation: Performing Lab:[facility] [address]], ,[place] [address] REASON FOR VISIT 4WK PN MEDICAL (GENERAL) HISTORY Type Description Date Medical History kidney stones Hospitalization History childbirth Goals Section No Information Health Concerns No Information MEDICAL EQUIPMENT No Information MENTAL STATUS No Information FUNCTIONAL STATUS No Information ASSESSMENTS Encounter Date Diagnosis Assessment Notes Treatment Notes Treatm ent Clinical Notes Jan, 15 weeks gestation of (ICD-10 - Z3A.15 ) Jan, Hemorrhage in early , unspecified (ICD- 10 - O20.9) PLAN OF TREATMENT Next Appt Details 4 Weeks Reason:PN Provider Name:Meera Andrea, 2020-04-07 03:00:00 PM, [address] [place], [address], Follow Up:4 WeeksPN Insurance Providers Payer Name Payer Address Payer Phone Insured Name Patient Relati onship to Insured Coverage Start Date Coverage End Date [facility] COMMUNITY PLAN [facility] [address] [facility] [address] JAYNA SALINAS self
--- OUTSIDE RECORDS SUMMARY | 2020-05-29 20:06 | CCD ---
Author Author [facility] Organization [facility] Address Unknown Phone Unavailable Care Team Providers Care Stone Gluer Name Role Phone Meera Andrea Unavailable PROBLEMS Type Condition ICD9-CM Code [id number] Code Onset Dates Condition S tatus SNOMED Code Notes Problem Hydronephrosis with renal and ureteral calculous obstructi on N13.2 Active 791015697 Problem Supervision of other normal Z34.80 Ac tive 568077205 Problem Tinea corporis 110.5 Active 09162904 Problem Renal lithiasis N20.0 Active 41330401 ALLERGIES Allergen (clinical drug ingredient) Drug/Non Drug Allergy do cumented on EMR Reaction Allergy Type Onset Date Status Penicillin (For Allergies Use Only) Rash Drug Allerg y Active ENCOUNTERS from 1996 to 2020-03-22 Encounter Location Date Provider Diagnosis [facility] [address] [place] [phone] Feb, Meera Andrea Second trimester bleeding O46.92 and 19 weeks gestation of Z3A.19 IMMUNIZATIONS No Information SOCIAL HISTORY Tobacco Use: Social History Observation Description Date Details (start date - stop date) Never Smoker Sex Assigned At : Social History Observation Description Sex Assigned At Unknown Tobacco Use: Question Answer Notes Are you a: never smoker REASON FOR REFERRAL No Information VITAL SIGNS Weight 135 lbs Feb, Weight-kg 61.23 kg Feb, Height 63 in Feb, BMI 23.914 kg/m2 Feb, Blood pressure systolic 108 mm Hg Feb, Blood pressure diastolic 70 mm Hg Feb, MEDICATIONS Medication SIG (Take, Route, Frequency, Duration) [...] nausea Jun, Not-Taking PROCEDURES No Information RESULTS No Results REASON FOR VISIT 4 wk pn MEDICAL (GENERAL) HISTORY Type Description Date Medical History kidney stones Hospitalization History childbirth Goals Section No Information Health Concerns No Information MEDICAL EQUIPMENT No Information MENTAL STATUS No Information FUNCTIONAL STATUS No Information ASSESSMENTS Encounter Date Diagnosis Assessment Notes Treatment Notes Treatm ent Clinical Notes Feb, Second trimester bleeding (ICD-10 - O46.92) Feb, 19 weeks gestation of (ICD-10 - Z3A.19 ) PLAN OF TREATMENT Treatment Notes Test Name Order Date [facility] OBS FOLLOW UP OR REPEAT 2020-03-22 [facility] PANEL PLUS 22q.11.2 2020-03-22 Next Appt Details 4 Weeks Reason:return ob Provider Name:Meera Andrea, 2020-04-07 03:00:00 PM, [address] [place], [address], Follow Up:4 Weeksreturn ob Insurance Providers Payer Name Payer Address Payer Phone Insured Name Patient Relati onship to Insured Coverage Start Date Coverage End Date [facility] COMM[facility] [address] [facility] [phone] JAYNA SALINAS self
--- OUTSIDE RECORDS SUMMARY | 2020-05-29 20:06 | CCD ---
Author Author [facility] [facility] [employer] Organization [facility] [employer] [facility] [employer] Address Unknown Phone Unavailable Care Team Providers Care Quality Management Coordinator Name Role Phone Meera Andrea Unavailable PROBLEMS Type Condition ICD9-CM Code [id number] Code Onset Dates Condition S tatus SNOMED Code Notes Problem Hydronephrosis with renal and ureteral calculous obstructi on N13.2 Active 385042836 Problem Supervision of other normal Z34.80 Ac tive 876923523 Problem Tinea corporis 110.5 Active 23249757 Problem Renal lithiasis N20.0 Active 83599302 ALLERGIES Allergen (clinical drug ingredient) Drug/Non Drug Allergy do cumented on EMR Reaction Allergy Type Onset Date Status Penicillin (For Allergies Use Only) Rash Drug Allerg y Active ENCOUNTERS from 1996 to 2020-05-10 Encounter Location Date Provider Diagnosis [facility] [address] [place] [id number] Apr, Meera Andrea 27 weeks gestatio n of Z3A.27 IMMUNIZATIONS No Information SOCIAL HISTORY Tobacco Use: Social History Observation Description Date Details (start date - stop date) Never Smoker Sex Assigned At : Social History Observation Description Sex Assigned At Unknown Tobacco Use: Question Answer Notes Are you a: never smoker REASON FOR REFERRAL No Information VITAL SIGNS No information MEDICATIONS Medication SIG (Take, Route, Frequency, Duration) Notes Start Da te End Date Status Omeprazole 40 mg 1 capsule Orally twice a day for 15 day(s) Apr, Not-Taking Classic Neti Pot Sinus Wash 2300-700 [...] 1 tablet Orally Once a day Not-Taking Flomax 0.4 MG 1 capsule 30 minutes after t he same meal each day Orally Once a day Not-Taking Oxycodone-Acetaminophen 5-325 MG Orally every 6 hrs Not-Taking 27-1 MG 1 tablet Orally Once a day for 30 day(s) Active Nitrofurantoin Macrocrystal 100 MG 1 capsule with food or milk Orally Once a day Not-Taking PROCEDURES No Information RESULTS No Results REASON FOR VISIT bc MEDICAL (GENERAL) HISTORY Type Description Date Medical History kidney stones Hospitalization History childbirth Goals Section No Information Health Concerns No Information MEDICAL EQUIPMENT No Information MENTAL STATUS No Information FUNCTIONAL STATUS No Information ASSESSMENTS Encounter Date Diagnosis Assessment Notes Treatment Notes Treatm ent Clinical Notes Apr, 27 weeks gestation of (ICD-10 - Z3A.27 ) PLAN OF TREATMENT Medication Medication Name Sig Start Date Stop Date 27-1 MG 1 tablet Orally Once a day for 30 day(s) Insurance Providers Payer Name Payer Address Payer Phone Insured Name Patient Relati onship to Insured Coverage Start Date Coverage End Date [employer] [facility] [address] [facility] [id number] JAYNA SALINAS self
--- OUTSIDE RECORDS SUMMARY | 2020-05-29 20:08 | CCD ---
Author Author [facility] Organization [facility] Address Unknown Phone Unavailable Care Team Providers Care Inspector Firearms Name Role Phone Shelly ANDRADE PA Unavailable Unavailable SYMENOW, Shelly CHRISTOPHER PA Unavailable Unavailable SYMENOWShelly CHRISTOPHER PA Unavailable Unavailable SYMENOW G CHRISTOPHER PA Unavailable Unavailable SYMENOW, G CHRISTOPHER PA Unavailable Unavailable SYMENOW, G CHRISTOPHER PA Unavailable Unavailable SYMENOW, G CHRISTOPHER PA Unavailable Unavailable SYMENOW, G CHRISTOPHER PA Unavailable Unavailable SYMENOW, G CHRISTOPHER PA Unavailable Unavailable SYMENOW, G CHRISTOPHER PA Unavailable Unavailable SYMENOW, G CHRISTOPHER PA Unavailable Unavailable SYMENOW, G CHRISTOPHER PA Unavailable Unavailable SYMENOW, G CHRISTOPHER PA Unavailable Unavailable SYMENOW, G CHRISTOPHER PA Unavailable Unavailable SYMENOW, G CHRISTOPHER PA Unavailable Unavailable SYMENOW, G CHRISTOPHER PA Unavailable Unavailable SYMENOW, G CHRISTOPHER PA Unavailable Unavailable LUNAS, Rober RUSSELL MD Unavailable Unavailable LUNAS, Rober RUSSELL MD Unavailable Unavailable LUNAS, Rober RUSSELL MD Unavailable Unavailable LUNAS, Rober RUSSELL MD Unavailable Unavailable LUNAS, Rober RUSSELL MD Unavailable Unavailable LUNAS, Rober RUSSELL MD Unavailable Unavailable LUNAS, Rober RUSSELL MD Unavailable Unavailable LUNAS, Rober RUSSELL MD Unavailable Unavailable LUNAS, Rober RUSSELL MD Unavailable Unavailable LUNAS, Rober RUSSELL MD Unavailable Unavailable LUNAS, Rober RUSSELL MD Unavailable Unavailable LUNAS, Rober RUSSELL MD Unavailable Unavailable LUNAS, Rober RUSSELL MD Unavailable Unavailable LUNAS, Rober RUSSELL MD Unavailable Unavailable LUNAS, Rober RUSSELL MD Unavailable Unavailable LUNAS, Rober RUSSELL MD Unavailable Unavailable LUNAS, Rober RUSSELL MD Unavailable Unavailable LUNAS, Rober RUSSELL MD Unavailable Unavailable LUNAS, Rober RUSSELL MD Unavailable Unavailable HUIZENGA, Tabitha SYLVESTER DO Unavailable Unavailable HUIZENGA, Tabitha SYLVESTER DO Unavailable Unavailable HUIZENGA, Tabitha SYLVESTER DO Unavailable Unavailable HUIZENGA, Tabitha SYLVESTER DO Unavailable Unavailable HUIZENGA, Tabitha SYLVESTER DO Unavailable Unavailable HUIZENGA, Tabitha SYLVESTER DO Unavailable Unavailable HUIZENGA, Tabitha SYLVESTER DO Unavailable Unavailable HUIZENGA, Tabitha SYLVESTER DO Unavailable Unavailable HUIZENGA, Tabitha SYLVESTER DO Unavailable Unavailable HUIZENGA, Tabitha SYLVESTER DO Unavailable Unavailable HUIZENGA, Tabitha SYLVESTER DO Unavailable Unavailable HUIZENGA, Tabitha SYLVESTER DO Unavailable Unavailable HUIZENGA, Tabitha SYLVESTER DO Unavailable Unavailable HUIZENGA, Tabitha SYLVESTER DO Unavailable Unavailable HUIZENGA, Tabitha SYLVESTER DO Unavailable Unavailable HUIZENGA, Tabitha SYLVESTER DO Unavailable Unavailable HUIZENGA, Tabitha SYLVESTER DO Unavailable Unavailable HUIZENGA, Tabitha SYLVESTER DO Unavailable Unavailable HUIZENGA, Tabitha SYLVESTER DO Unavailable Unavailable HUIZENGA, Tabitha SYLVESTER DO Unavailable Unavailable HUIZENGA, Tabitha SYLVESTER DO Unavailable Unavailable HUIZENGA, Tabitha SYLVESTER DO Unavailable Unavailable HUIZENGA, Tabitha SYLVESTER DO Unavailable Unavailable HUIZENGA, Tabitha SYLVESTER DO Unavailable Unavailable HUIZENGA, Tabitha SYLVESTER DO Unavailable Unavailable HUIZENGA, Tabitha SYLVESTER DO Unavailable Unavailable HUIZENGA, Tabitha SYLVESTER DO Unavailable Unavailable HUIZENGA, Tabitha SYLVESTER DO Unavailable Unavailable HUIZENGA, Tabitha SYLVESTER DO Unavailable Unavailable HUIZENGA, Tabitha SYLVESTER DO Unavailable Unavailable HUIZENGA, Tabitha SYLVESTER DO Unavailable Unavailable HUIZENGA, Tabitha SYLVESTER DO Unavailable Unavailable HUIZENGA, Tabitha SYLVESTER DO Unavailable Unavailable HUIZENGA, Tabitha SYLVESTER DO Unavailable Unavailable HUIZENGA, Tabitha SYLVESTER DO Unavailable Unavailable HUIZENGA, Tabitha SYLVESTER DO Unavailable Unavailable HUIZENGA, Tabitha SYLVESTER DO Unavailable Unavailable HUIZENGA, Tabitha SYLVESTER DO Unavailable Unavailable HUIZENGA, Tabitha SYLVESTER DO Unavailable Unavailable HUIZENGA, Tabitha SYLVESTER DO Unavailable Unavailable HUIZENGA, Tabitha SYLVESTER DO Unavailable Unavailable HUIZENGA, Tabitha SYLVESTER DO Unavailable Unavailable HUIZENGA, Tabitha SYLVESTER DO Unavailable Unavailable HUIZENGA, Tabitha SYLVESTER DO Unavailable Unavailable HUIZENGA, Tabitha SYLVESTER DO Unavailable Unavailable HUIZENGA, Tabitha SYLVESTER DO Unavailable Unavailable HUIZENGA, Tabitha SYLVESTER DO Unavailable Unavailable HUIZENGA, Tabitha SYLVESTER DO Unavailable Unavailable HUIZENGA, Tabitha SYLVESTER DO Unavailable Unavailable HUIZENGA, Tabitha SYLVESTER DO Unavailable Unavailable HUIZENGA, Tabitha SYLVESTER DO Unavailable Unavailable HUIZENGA, Tabitha SYLVESTER DO Unavailable Unavailable HUIZENGA, Tabitha SYLVESTER DO Unavailable Unavailable HUIZENGA, Tabitha SYLVESTER DO Unavailable Unavailable HUIZENGA, Tabitha SYLVESTER DO Unavailable Unavailable HUIZENGA, Tabtiha SYLVESTER DO Unavailable Unavailable HUIZENGA, Tabitha SYLVESTER DO Unavailable Unavailable HUIZENGA, Tabitha SYLVESTER DO Unavailable Unavailable HUIZENGA, Tabitha SYLVESTER DO Unavailable Unavailable HUIZENGA, Tabitha SYLVESTER DO Unavailable Unavailable HUIZENGA, Tabitha SYLVESTER DO Unavailable Unavailable HUIZENGA, Tabitha SYLVESTER DO Unavailable Unavailable HUIZENGA, Tabitha SYLVESTER DO Unavailable Unavailable HUIZENGA, Tabitha SYLVESTER DO Unavailable Unavailable HUIZENGA, Tabitha SYLVESTER DO Unavailable Unavailable HUIZENGA, Tabitha SYLVESTER DO Unavailable Unavailable HUIZENGA, Tabitha SYLVESTER DO Unavailable Unavailable HUIZENGA, Tbaitha SYLVESTER DO Unavailable Unavailable HUIZENGA, Tabitha SYLVESTER DO Unavailable Unavailable HUIZENGA, Tabitha SYLVESTER DO Unavailable Unavailable HUIZENGA, Tabitha SYLVESTER DO Unavailable Unavailable HUIZENGA, Tabitha SYLVESTER DO Unavailable Unavailable Shad REED HEEL STAINER Unavailable Unavailable DEREKShad BALLARD HEEL STAINER Unavailable Unavailable DEREK, C OSCAR HEEL STAINER Unavailable Unavailable DEREK, C OSCAR HEEL STAINER Unavailable Unavailable DEREK, C OSCAR HEEL STAINER Unavailable Unavailable DEREK, C OSCAR HEEL STAINER Unavailable Unavailable DEREK, C OSCAR HEEL STAINER Unavailable Unavailable DEREK, C OSCAR HEEL STAINER Unavailable Unavailable DEREK, C OSCAR HEEL STAINER Unavailable Unavailable DEREK, C OSCAR HEEL STAINER Unavailable Unavailable DEREK, C OSCAR HEEL STAINER Unavailable Unavailable DEREK, C OSCAR HEEL STAINER Unavailable Unavailable DEREK, C OSCAR HEEL STAINER Unavailable Unavailable DEREK, C OSCAR HEEL STAINER Unavailable Unavailable DEREK, C OSCAR HEEL STAINER Unavailable Unavailable DEREK, C OSCAR HEEL STAINER Unavailable Unavailable DEREK, C OSCAR HEEL STAINER Unavailable Unavailable DEREK, C OSCAR HEEL STAINER Unavailable Unavailable DEREK, C OSCAR HEEL STAINER Unavailable Unavailable DEREK, C OSCAR HEEL STAINER Unavailable Unavailable DEREK, C OSCAR HEEL STAINER Unavailable Unavailable DEREK, C OSCAR HEEL STAINER Unavailable Unavailable DEREK, C OSCAR HEEL STAINER Unavailable Unavailable WOLFENDEN, T ELPIDIO PA Unavailable Unavailable WOLFENDEN, T ELPIDIO PA Unavailable Unavailable WOLFENDEN, T ELPIDIO PA Unavailable Unavailable WOLFENDEN, T ELPIDIO PA Unavailable Unavailable WOLFENDEN, T ELPIDIO PA Unavailable Unavailable WOLFENDEN, T ELPIDIO PA Unavailable Unavailable WOLFENDEN, T ELPIDIO PA Unavailable Unavailable WOLFENDEN, T ELPIDIO PA Unavailable Unavailable WOLFENDEN, T ELPIDIO PA Unavailable Unavailable WOLFENDEN, T ELPIDIO PA Unavailable Unavailable WOLFENDEN, T ELPIDIO PA Unavailable Unavailable WOLFENDEN, T ELPIDIO PA Unavailable Unavailable WOLFENDEN, T ELPIDIO PA Unavailable Unavailable WOLFENDEN, T ELPIDIO PA Unavailable Unavailable WOLFENDEN, T ELPIDIO PA Unavailable Unavailable WOLFENDEN, T ELPIDIO PA Unavailable Unavailable WOLFENDEN, T ELPIDIO PA Unavailable Unavailable WOLFENDEN, T ELPIDIO PA Unavailable Unavailable WOLFENDEN, T ELPIDIO PA Unavailable Unavailable WOLFENDEN, T ELPIDIO PA Unavailable Unavailable WOLFENDEN, T ELPIDIO PA Unavailable Unavailable WOLFENDEN, T ELPIDIO PA Unavailable Unavailable WOLFENDEN, T ELPIDIO PA Unavailable Unavailable WOLFENDEN, T ELPIDIO PA Unavailable Unavailable WOLFENDEN, T ELPIDIO PA Unavailable Unavailable WOLFENDEN, T ELPIDIO PA Unavailable Unavailable WOLFENDEN, T ELPIDIO PA Unavailable Unavailable WOLFENDEN, T ELPIDIO PA Unavailable Unavailable Silvia CHUNG CNM Unavailable Unavailable HILL, L JESSEE CNM Unavailable Unavailable HILL, L JESSEE CNM Unavailable Unavailable HILL, L JESSEE CNM Unavailable Unavailable HILL, L JESSEE CNM Unavailable Unavailable HILL, L JESSEE CNM Unavailable Unavailable HILL, L JESSEE CNM Unavailable Unavailable HILL, L JESSEE CNM Unavailable Unavailable HILL, L JESSEE CNM Unavailable Unavailable HILL, L JESSEE CNM Unavailable Unavailable HILL, L JESSEE CNM Unavailable Unavailable HILL, L JESSEE CNM Unavailable Unavailable HILL, L JESSEE CNM Unavailable Unavailable HILL, L JESSEE CNM Unavailable Unavailable HILL, L JESSEE CNM Unavailable Unavailable HILL, L JESSEE CNM Unavailable Unavailable HILL, L JESSEE CNM Unavailable Unavailable HILL, L JESSEE CNM Unavailable Unavailable HILL, L JESSEE CNM Unavailable Unavailable HILL, L JESSEE CNM Unavailable Unavailable HILL, L JESSEE CNM Unavailable Unavailable HILL, L JESSEE CNM Unavailable Unavailable HILL, L JESSEE CNM Unavailable Unavailable HILL, L JESSEE CNM Unavailable Unavailable HILL, L JESSEE CNM Unavailable Unavailable HILL, L JESSEE CNM Unavailable Unavailable HILL, L JESSEE CNM Unavailable Unavailable NOSOVIGalindo ANDRADE JR, MD Unavailable Unavailable NOSOVITCH Galindo COLEMAN MD Unavailable Unavailable NOSOVITCH Galindo COLEMAN MD Unavailable Unavailable NOSOVITCH Galindo COLEMAN MD Unavailable Unavailable NOSOVITCH Galindo COLEMAN MD Unavailable Unavailable NOSOVITCH Galindo COLEMAN MD Unavailable Unavailable NOSOVITCH Galindo COLEMAN MD Unavailable Unavailable NOSOVITCH Galindo COLEMAN MD Unavailable Unavailable NOSOVITCH Galindo COLEMAN MD Unavailable Unavailable NOSOVITCH Galindo COLEMAN MD Unavailable Unavailable NOSOVITCH Galindo COLEMAN MD Unavailable Unavailable NOSOVITCH Galindo COLEMAN MD Unavailable Unavailable NOSOVITCH Galindo COLEMAN MD Unavailable Unavailable NOSOVITCH Galindo COLEMAN MD Unavailable Unavailable NOSOVITCH Galindo COLEMAN MD Unavailable Unavailable NOSOVITCH Galindo COLEMAN MD Unavailable Unavailable NOSOVITCH Galindo COLEMAN MD Unavailable Unavailable NOSOVITCH Galindo COLEMAN MD Unavailable Unavailable NOSOVITCH Galindo COLEMAN MD Unavailable Unavailable NOSOVITCH Galindo COLEMAN MD Unavailable Unavailable NOSOVITCH Galindo COLEMAN MD Unavailable Unavailable NOSOVITCH Galindo COLEMAN MD Unavailable Unavailable NOSOVITCH Galindo COLEMAN MD Unavailable Unavailable NOSOVITCH Galindo COLEMAN MD Unavailable Unavailable NOSOVITCH Galindo COLEMAN MD Unavailable Unavailable NOSOVITCH Galindo COLEMAN MD Unavailable Unavailable NOSOVITCH Galindo COLEMAN MD Unavailable Unavailable NOSOVITCH Galindo COLEMAN MD Unavailable Unavailable Charli, Antoine Mcdaniel PARK LANDSCAPE ARCHITECT-C Unavailable Unavailabl e Charli, Antoine W Violeta PARK LANDSCAPE ARCHITECT-C Unavailable Unavailabl e Charli, Antoine W Violeta PARK LANDSCAPE ARCHITECT-C Unavailable Unavailabl e Charli, Antoine Mcdaniel PARK LANDSCAPE ARCHITECT-C Unavailable Unavailabl e Charli, Antoine Mcdaniel PARK LANDSCAPE ARCHITECT-C Unavailable Unavailabl e Charli, Antoine W Violeta PARK LANDSCAPE ARCHITECT-C Unavailable Unavailabl e Charli, Antoine W Violeta PARK LANDSCAPE ARCHITECT-C Unavailable Unavailabl e Charli, Antoine W Violeta PARK LANDSCAPE ARCHITECT-C Unavailable Unavailabl e Charli, Antoine W Violeta PARK LANDSCAPE ARCHITECT-C Unavailable Unavailabl e Charli, Antoine Handye PARK LANDSCAPE ARCHITECT-C Unavailable Unavailabl e Charli, Antoine Handye PARK LANDSCAPE ARCHITECT-C Unavailable Unavailabl e Charli, Antoine Mcdaniel PARK LANDSCAPE ARCHITECT-C Unavailable Unavailabl e Cahrli, Antoine Mcdaniel PARK LANDSCAPE ARCHITECT-C Unavailable Unavailabl e Charli, Antoine Mcdaniel PARK LANDSCAPE ARCHITECT-C Unavailable Unavailabl e Charli, Kathleen W Violeta PARK LANDSCAPE ARCHITECT-C Unavailable Unavailabl e Charli, Kathleen W Violtea PARK LANDSCAPE ARCHITECT-C Unavailable Unavailabl e Charli, Kathleen Tata Mcdaniel PARK LANDSCAPE ARCHITECT-C Unavailable Unavailabl e Charli, Kathleen W Violeta PARK LANDSCAPE ARCHITECT-C Unavailable Unavailabl e Charli, Kathleen W Violeta PARK LANDSCAPE ARCHITECT-C Unavailable Unavailabl e Charli, Kathleen W Violeta PARK LANDSCAPE ARCHITECT-C Unavailable Unavailabl e Charli, Kathleen W Violeta PARK LANDSCAPE ARCHITECT-C Unavailable Unavailabl e Charli, Regowen W Violeta PARK LANDSCAPE ARCHITECT-C Unavailable Unavailabl e Charli, Regwoen W Violeta PARK LANDSCAPE ARCHITECT-C Unavailable Unavailabl e Charli, Regowen W Violeta PARK LANDSCAPE ARCHITECT-C Unavailable Unavailabl e Charli, Regowen W Violeta PARK LANDSCAPE ARCHITECT-C Unavailable Unavailabl e Charli, Regowen W Violeta PARK LANDSCAPE ARCHITECT-C Unavailable Unavailabl e Charli, Reginah W Violeta PARK LANDSCAPE ARCHITECT-C Unavailable Unavailabl e Charli, Reginah W Violeta PARK LANDSCAPE ARCHITECT-C Unavailable Unavailabl e Charli, Reginah W Violeta PARK LANDSCAPE ARCHITECT-C Unavailable Unavailabl e Charli, Reginah W Violeta PARK LANDSCAPE ARCHITECT-C Unavailable Unavailabl e Charli, Reginah W Violeta PARK LANDSCAPE ARCHITECT-C Unavailable Unavailabl e Charli, Reginah W Violeta PARK LANDSCAPE ARCHITECT-C Unavailable Unavailabl e BLUM, W LENA PA Unavailable Unavailable BLUM, W LENA PA Unavailable Unavailable BLUM, W LENA PA Unavailable Unavailable BLUM, W LENA PA Unavailable Unavailable BLUM, W LENA PA Unavailable Unavailable BLUM, W LENA PA Unavailable Unavailable BLUM, W LENA PA Unavailable Unavailable BLUM, W LENA PA Unavailable Unavailable BLUM, W LENA PA Unavailable Unavailable BLUM, W LENA PA Unavailable Unavailable BLUM, W LENA PA Unavailable Unavailable BLUM, W LENA PA Unavailable Unavailable BLUM, W LENA PA Unavailable Unavailable BLUM, W LENA PA Unavailable Unavailable BLUM, W LENA PA Unavailable Unavailable BLUM, W LENA PA Unavailable Unavailable BLUM, W LENA PA Unavailable Unavailable BLUM, W LENA PA Unavailable Unavailable BLUM, W LENA PA Unavailable Unavailable BLUM, W LENA PA Unavailable Unavailable BLUM, W LENA PA Unavailable Unavailable BLUM, W LENA PA Unavailable Unavailable BLUM, W LENA PA Unavailable Unavailable BLUM, W LENA PA Unavailable Unavailable BLUM, W LENA PA Unavailable Unavailable BLUM, W LENA PA Unavailable Unavailable BLMU, W LENA PA Unavailable Unavailable BLUM, W LENA PA Unavailable Unavailable BLUM, W LENA PA Unavailable Unavailable BLUM, W LENA PA Unavailable Unavailable BLUM, W LENA PA Unavailable Unavailable BLUM, W LENA PA Unavailable Unavailable BLUM, W LENA PA Unavailable Unavailable BLUM, W LENA PA Unavailable Unavailable BLUM, W LENA PA Unavailable Unavailable BLUM, W LENA PA Unavailable Unavailable BLUM, W LENA PA Unavailable Unavailable BLUM, W LENA PA Unavailable Unavailable BLUM, W LENA PA Unavailable Unavailable BLUM, W LENA PA Unavailable Unavailable BLUM, W LENA PA Unavailable Unavailable BLUM, W LENA PA Unavailable Unavailable BLUM, W LENA PA Unavailable Unavailable BLUM, W LENA PA Unavailable Unavailable Tata BLUM PA Unavailable Unavailable KULWANT, W LENA PA Unavailable Unavailable Bobby CLAUDIO MD Unavailable Unavailable Bobby CLAUDIO MD Unavailable Unavailable Bobby CLAUDIO MD Unavailable Unavailable Bobby CLAUDIO MD Unavailable Unavailable Bobby CLAUDIO MD Unavailable Unavailable Bobby CLAUDIO MD Unavailable Unavailable Bobby CLAUDIO MD Unavailable Unavailable Bobby CLAUDIO MD Unavailable Unavailable Bobby CLAUDIO MD Unavailable Unavailable Bobby CLAUDIO MD Unavailable Unavailable Bobby CLAUDIO MD Unavailable Unavailable Bobby CLAUDIO MD Unavailable Unavailable Bobby CLAUDIO MD Unavailable Unavailable Bobby CLAUDIO MD Unavailable Unavailable Bobby CLAUDIO MD Unavailable Unavailable Bobby CLAUDIO MD Unavailable Unavailable Bobby CLAUDIO MD Unavailable Unavailable Bobby CLAUDIO MD Unavailable Unavailable Bobby CLAUDIO MD Unavailable Unavailable Bobby CLAUDIO MD Unavailable Unavailable Bobby CLAUDIO MD Unavailable Unavailable Bobby CLAUDIO MD Unavailable Unavailable Bobby CLAUDIO MD Unavailable Unavailable Bobby CLAUDIO MD Unavailable Unavailable Bobby CLAUDIO MD Unavailable Unavailable Bobby CLAUDIO MD Unavailable Unavailable PHILLIP JOSEPH MD Unavailable Unavailable PHILLIP JOSEPH MD Unavailable Unavailable PHILLIP JOSEPH MD Unavailable Unavailable PHILLIP JOSEPH MD Unavailable Unavailable PHILLIP JOSEPH MD Unavailable Unavailable PHILLIP JOSEPH MD Unavailable Unavailable PHILLIP JOSEPH MD Unavailable Unavailable PHILLIP JOSEPH MD Unavailable Unavailable PHILLIP JOSEPH MD Unavailable Unavailable PHILLIP JOSEPH MD Unavailable Unavailable PHILLIP JOSEPH MD Unavailable Unavailable PHILLIP JOSEPH MD Unavailable Unavailable PHILLIP JOSEPH MD Unavailable Unavailable PHILLIP JOSEPH MD Unavailable Unavailable PHILLIP JOSEPH MD Unavailable Unavailable PHILLIP JOSEPH MD Unavailable Unavailable PHILLIP JOSEPH MD Unavailable Unavailable PHILLIP JOSEPH MD Unavailable Unavailable PHILLIP JOSEPH MD Unavailable Unavailable PHILLIP JOSEPH MD Unavailable Unavailable PHILLIP JOSEPH MD Unavailable Unavailable PHILLIP JOSEPH MD Unavailable Unavailable PHILLIP JOSEPH MD Unavailable Unavailable PHILLIP JOSEPH MD Unavailable Unavailable PHILLIP JOSEPH MD Unavailable Unavailable PHILLIP JOSEPH MD Unavailable Unavailable PHILLIP JOSEPH MD Unavailable Unavailable OPAL, PHILLIP VIGIL MD Unavailable Unavailable OPAL, PHILLIP VIGIL MD Unavailable Unavailable OPAL, PHILLIP VIGIL MD Unavailable Unavailable OPAL, PHILLIP VIGIL MD Unavailable Unavailable OPAL, PHILLIP VIGIL MD Unavailable Unavailable OPAL, PHILLIP VIGIL MD Unavailable Unavailable OPAL, PHILLIP VIGIL MD Unavailable Unavailable OPAL, PHILLIP VIGIL MD Unavailable Unavailable OPAL, PHILLIP VIGIL MD Unavailable Unavailable OPAL, PHILLIP VIGIL MD Unavailable Unavailable OPAL, PHILLIP VIGIL MD Unavailable Unavailable OPAL, PHILLIP VIGIL MD Unavailable Unavailable OPAL, PHILLIP VIGIL MD Unavailable Unavailable Sharyn, C Ceht PA Unavailable Unavailable Sharyn, C Chet PA Unavailable Unavailable Sharyn, C Chet PA Unavailable Unavailable Sharyn, C Chet PA Unavailable Unavailable Sharyn, C Chet PA Unavailable Unavailable Sharyn, C Chet PA Unavailable Unavailable Sharyn, C Chet PA Unavailable Unavailable Sharyn, C Chet PA Unavailable Unavailable Sharyn, C Chet PA Unavailable Unavailable Sharyn, C Chet PA Unavailable Unavailable Sharyn, C Chet PA Unavailable Unavailable Sharyn, C Chet PA Unavailable Unavailable Sharyn, C Chet PA Unavailable Unavailable Sharyn, C Chet PA Unavailable Unavailable Sharyn, C Chet PA Unavailable Unavailable [place], L Lexis LEAD TECHNICIAN Unavailable Unavailable [place], L Lexis LEAD TECHNICIAN Unavailable Unavailable [place], L Lexis LEAD TECHNICIAN Unavailable Unavailable [place], L Lexis LEAD TECHNICIAN Unavailable Unavailable [place], L Lexis LEAD TECHNICIAN Unavailable Unavailable [place], L Lexis LEAD TECHNICIAN Unavailable Unavailable [place], L Lexis LEAD TECHNICIAN Unavailable Unavailable [place], L Lexis LEAD TECHNICIAN Unavailable Unavailable [place], L [place]xis LEAD TECHNICIAN Unavailable Unavailable [place], L Lexis LEAD TECHNICIAN Unavailable Unavailable [place], L Lexis LEAD TECHNICIAN Unavailable Unavailable [place], L Lexis LEAD TECHNICIAN Unavailable Unavailable [place], L [place]is LEAD TECHNICIAN Unavailable Unavailable [place], L [place] LEAD TECHNICIAN Unavailable Unavailable [place], L [place] LEAD TECHNICIAN Unavailable Unavailable [place], L [place] LEAD TECHNICIAN Unavailable Unavailable [place], L [place] LEAD TECHNICIAN Unavailable Unavailable [place], L Lexis LEAD TECHNICIAN Unavailable Unavailable [place], L Lexis LEAD TECHNICIAN Unavailable Unavailable [place], L [place] LEAD TECHNICIAN Unavailable Unavailable [place], L [place]is LEAD TECHNICIAN Unavailable Unavailable [place], L Lexis LEAD TECHNICIAN Unavailable Unavailable [place], L Lexis LEAD TECHNICIAN Unavailable Unavailable [place], L Lexis LEAD TECHNICIAN Unavailable Unavailable [place], L Lexis LEAD TECHNICIAN Unavailable Unavailable [place], L Lexis LEAD TECHNICIAN Unavailable Unavailable [place], L Elxis LEAD TECHNICIAN Unavailable Unavailable [place], L Lexis LEAD TECHNICIAN Unavailable Unavailable [place], L Lexis LEAD TECHNICIAN Unavailable Unavailable [place], L Lexis LEAD TECHNICIAN Unavailable Unavailable [place], L Lexis LEAD TECHNICIAN Unavailable Unavailable [place], L Lexis LEAD TECHNICIAN Unavailable Unavailable [place], L Lexis LEAD TECHNICIAN Unavailable Unavailable IRASEMA, MARISA Unavailable Unavailable HOLLAND, M JEROMY Unavailable Unavailable MARISA VILLALPANDO MD Unavailable Unavailable FOLK, Bobby RUSSELL MD Unavailable Unavailable FOLK, Bobby RUSSELL MD Unavailable Unavailable FOLK, J YVONNE MD Unavailable Unavailable FOLK, J YVONNE MD Unavailable Unavailable FOLK, J YVONNE MD Unavailable Unavailable FOLK, J YVONNE MD Unavailable Unavailable FOLK, J YVONNE MD Unavailable Unavailable FOLK, J YVONNE MD Unavailable Unavailable FOLK, J YVONNE MD Unavailable Unavailable FOLK, J YVONNE MD Unavailable Unavailable FOLK, J YVONNE MD Unavailable Unavailable FOLK, J YVONNE MD Unavailable Unavailable FOLK, J YVONNE MD Unavailable Unavailable FOLK, J YVONNE MD Unavailable Unavailable FOLK, J YVONNE MD Unavailable Unavailable FOLK, J YVONNE MD Unavailable Unavailable FOLK, J YVONNE MD Unavailable Unavailable FOLK, J YVONNE MD Unavailable Unavailable FOLK, J YVONNE MD Unavailable Unavailable FOLK, J YVONNE MD Unavailable Unavailable FOLK, J YVONNE MD Unavailable Unavailable FOLK, J YVONNE MD Unavailable Unavailable FOLK, J YVONNE MD Unavailable Unavailable FOLK, J YVONNE MD Unavailable Unavailable FOLK, J YVONNE MD Unavailable Unavailable FOLK, J YVONNE MD Unavailable Unavailable GEORGE, 0000{ Unavailable Unavailable THOMPSON, SHARATH Unavailable Unavailable Re-disclosure Warning The records that you are about to access may contain information from federally-assisted alcohol or drug abuse programs. If such information is present, then the following federally mandated warning applies: This information has been disclosed to you from records protected by federal confidentiality rules (42 CFR part 2). The federal rules prohibit you from making any further disclosure of this information unless further disclosure is expressly permitted by the written consent of the person to whom it pertains or as otherwise permitted by 42 CFR part 2. A general authorization for the release of medical or other information is NOT sufficient for this purpose. The Federal rules restrict any use of the information to criminally investigate or prosecute any alcohol or drug abuse patient.The records that you are about to access may contain highly sensitive health information, the redisclosure of which is protected by Article 27-F of the [facility] Public Health law. If you continue you may have access to information: Regarding HIV / AIDS; Provided by facilities licensed or operated by the [facility] Office of Mental Health; or Provided by the [facility] Office for People With Developmental Disabilities. If such information is present, then the following [facility] mandated warning applies: This information has been disclosed to you from confidential records which are protected by state law. State law prohibits you from making any further disclosure of this information without the specific written consent of the person to whom it pertains, or as otherwise permitted by law. Any unauthorized further disclosure in violation of state law may result in a fine or fci sentence or both. A general authorization for the release of medical or other information is NOT sufficient authorization for further disc losure. Allergies and Adverse Reactions Type Description Substance Reaction Status Data Source(s ) Chemical ADHESIVE TAPE ADHESIVE TAPE [facility] Drug Class PENICILLINS Penicillin Rash [facility] Drug allergy Penicillin G Sodium Penicillin G RASH Active e CW1 ([facility]) Family History Family Member Name Family Member Gender Family Member Status Date o f Status Description Data Source(s) Unknown Unknown Problem MEDENT ([facility]) Encounters Encounter Providers Location Date Indications Data Source(s ) Outpatient Attender: OSCAR REED NP 06/03/2020 12:00:0 0 AM [facility] Outpatient Attender: OSCAR REED NPReferrer: YVONNE URIARTE JR [id number] 05/26/2020 12:00:00 AM EST - 05/26/2020 01:43:06 PM EST Disruption of delivery [facility] Disruption of delivery wound Outpatient Attender: OSCAR REED NPReferrer: YVONNE URIARTE JR [id number] 05/20/2020 12:00:00 AM EST - 05/20/2020 01:58:41 PM EST Disruption of delivery [facility] Disruption of delivery wound Inpatient Attender: YVONNE CLAUDIO MD 05/09/2020 04:03:[address] [facility] Inpatient Attender: YVONNE CLAUDIO MDAdmitter: YVONNE CLAUDIO MD 05/09/2020 02:28:00 AM EST - 05/18/2020 02:21:00 PM EST CSECTION ABSCESS [facility] CSECTION ABSCESS Patient discharged. Inpatient Attender: YVONNE CLAUDIO MD 05/09/2020 02:28:00 AM E [facility] Unknown [address] [address] 05/09/2020 12:00:00 AM EST eCW1 ([facility]) Outpatient Attender: OSCAR REED NP 05/09/2020 12:00:0 0 AM EST [facility] Inpatient Attender: MARISA VILLALPANDO MD 04/19/2020 05:16:52 PM EST [facility] [place] [facility] Inpatient Attender: MARISA GREYdmitter: MARISA VILLALPANDO 04/19/2020 04:09:00 PM EST - 05/05/2020 03:43:00 [place] [id number] [facility] POLYHYDRAMINO DD [id number] Patient discharged. Inpatient Attender: [facility] 04/19/2020 04:09:00 PM E [facility] ( ESTOB) [facility] OB [address] [place] [address] 04/07/2020 12:00:00 AM EST eCW1 ([facility]) ( ESTOB) [facility] [address] [place] [address] 03/09/2020 12:00:00 AM EST eCW1 ([facility]) ( ESTOB) [facility] OB [address] [place] [address] 02/10/2020 12:00:00 AM EDT eCW1 ([facility]) Outpatient Attender: SHARATH MACKAY 02/04/2020 01:00:00 PM [facility] Outpatient Attender: Lexis COULNGA 01/29/2020 10:30:00 AM [facility] Outpatient [facility] 01/29/2020 12:00:00 AM EDT eCW1 ([facility]) Outpatient Attender: ELPIDIO GARRISON 01/05/2020 09:30 :00 AM [facility] Emergency Attender: ELPIDIO BIRMINGHAMeferrer: Lexis COLUNGA EMERGENCY ROOM-ER 01/02/2020 11:45:00 AM EDT - 01/02/2020 12:22:00 PM [facility] Patient discharged. Outpatient Attender: JEROMY HOLLAND 12/22/2019 11:00:00 AM E DT [facility] Outpatient [facility] 12/16/2019 12:00:00 AM EDT eCW1 ([facility]) Outpatient Attender: Lexis Dang RNPReferrer: Lexis COLUNGA 12/15/2019 02:00:00 PM EDT [facility] Outpatient [facility] 12/15/2019 12:00:00 AM EDT eCW1 ([facility]) Outpatient [facility] 12/08/2019 12:00:00 AM EDT eCW1 ([facility]) Outpatient [facility] 12/01/2019 12:00:00 AM EDT eCW1 ([facility]) Outpatient Attender: Lexis Dang RNPReferrer: Tim COLUNGA [facility] 11/30/2019 01:59:00 PM EDT - 11/30/2019 01:59:00 PM EDT [facility] Outpatient [facility] 11/30/2019 12:00:00 AM EDT eCW1 ([facility]) Outpatient [facility] 11/04/2019 12:00:00 AM EDT eCW1 ([facility]) Outpatient Attender: Lexis COLUNGA 11/02/2019 07:34:00 AM EDT [facility] 11/02/2019 12:00:00 AM EDT eCW1 ([facility]) Outpatient Attender: Violeta LAUP-Shad 05/15/2019 10:11:[address] [facility] 0 12:00:00 AM EST eCW1 ([facility]) Emergency Attender: LEROY GARRISON EMERGENCY ROOM- ER 12/05/2017 09:49:00 AM EDT - 12/05/2017 11:31:00 AM EDT [facility] Outpatient Attender: JESSEE LEWISeferrer: HIGINIO CAZARES DO 10/11/2016 02:00:00 PM EDT [facility] Emergency Attender: Chet BIRMINGHAMeferrer: SHAHIDA CAZARES DO EMERGENCY ROOM-ER 05/08/2014 02:52:00 PM EST - 05/08/2014 04:45:00 PM [facility] Outpatient Attender: MUSA JOSEPH MDReferrer: HIGINIO Forte DO 12/14/2013 01:23:00 PM [facility] Outpatient Attender: MUSA JOSEPH MDReferrer: HIGINIO Forte DO 12/02/2013 11:39:00 AM [facility] Outpatient Attender: LENA Padillaerrer: HIGINIO ELENA DO 09/16/2013 02:51:00 PM [facility] Emergency Attender: LENA BIRMINGHAMeferrer: PERFECTO CAZARES DO EMERGENCY ROOM-ER 09/15/2013 08:51:00 PM EDT - 09/15/2013 10:55:00 PM [facility] Outpatient Attender: HIGINIO CAZARES DO 07/03/2013 09:05:00 AM [facility] Outpatient Attender: HIGINIO CAZARES DO 06/30/2013 10:00:00 AM [facility] Outpatient Attender: YVONNE CASANOVA MD 04/28/2013 12:18:00 PM [facility] Emergency Attender: YVONNE CASANOVA MD 04/28/20 13 01:05:00 AM [facility] - 04/28/2013 02:55:00 AM [facility] Outpatient Attender: LEROY GARRISON 12/09/2012 01: 23:00 PM [facility] Emergency Attender: LEROY GARRISON 12/09/2012 02:27:00 AM [facility] - 12/09/2012 03:30:00 AM [facility] Medications Medication Brand Name Start Date Product Form Dose Route Admi nistrative Instructions Pharmacy Instructions Status Indications Reaction Description Data Source(s) Citalopram 10 MG Oral Tablet [Celexa] Celexa 10 MG Celexa 10 MG 11/02/2019 12:00:00 AM EDT 1.0 {tablet} suspended Celexa 10 MG eCW1 ([facility]) Citalopram 10 MG Oral Tablet [Celexa] Celexa 10 MG Celexa 10 MG 11/02/2019 12:00:00 AM EDT 1.0 {tablet} active Ce tamir 10 MG eCW1 ([facility]) Citalopram 10 MG Oral Tablet [Celexa] Celexa 10 MG Celexa 10 MG 11/02/2019 12:00:00 AM EDT 1.0 {tablet} active Ce tamir 10 MG eCW1 ([facility]) Citalopram 10 MG Oral Tablet [Celexa] Celexa 10 MG Celexa 10 MG 11/02/2019 12:00:00 AM EDT 1.0 {tablet} active Ce tamir 10 MG eCW1 ([facility]) Citalopram 10 MG Oral Tablet [Celexa] Celexa 10 MG Celexa 10 MG 11/02/2019 12:00:00 AM EDT 1.0 {tablet} active Ce tamir 10 MG eCW1 ([facility]) Citalopram 10 MG Oral Tablet [Celexa] Celexa 10 MG Celexa 10 MG 11/02/2019 12:00:00 AM EDT 1.0 {tablet} active Ce tamir 10 MG eCW1 ([facility]) Citalopram 10 MG Oral Tablet [Celexa] Celexa 10 MG Celexa 10 MG 11/02/2019 12:00:00 AM EDT 1.0 {tablet} active Ce tamir 10 MG eCW1 ([facility]) Citalopram 10 MG Oral Tablet [Celexa] Celexa 10 MG Celexa 10 MG 11/02/2019 12:00:00 AM EDT 1.0 {tablet} active Ce tamir 10 MG eCW1 ([facility]) Okiufkhb-Qttwhnmrv-W[place] [id number] UNK 05/15/2019 12:00:00 AM EST active 4 drops into Left ear eCW1 ([facility]) Insurance Providers Payer name Policy type / Coverage type Policy ID Covered alliance party ID Covered alliance party's relationship to bautista Policy Bautista Plan Information [employer] COMMUNITY PLAN [facility] [id number] SP [id number] [facility] I [id number] Self [id number] [facility](MCA[facility]) O [id number] S [id number] MEDICAID GME [id number] S [id number] [facility] HEA [id number] S [id number] MEDICAID [id number] Self [id number] [facility] I [id number] Self [id number] [employer] COMMUNITY PLAN MCDO [id number] SP [id number] UNHC [facility] [id number] S [id number] [facility] MEDICAID [id number] S [id number] MEDICAID [id number] S [id number] [facility] MEDICAID [id number] S [id number] [facility] MEDICAID [id number] S [id number] MEDICAID [id number] S [id number] SELF PAY UNAVAILABLE S UNAVAILA BLE [facility] [id number] SP [id number] ANS-Medicaid [id number] ANSI-Medicaid [id number] [facility] MEDICAID [id number] S [id number] [facility] MEDICAID [id number] S [id number] [facility] MEDICAID [id number] S [id number] ANSI-Medicaid [id number] ANSI-Medicaid [id number] ANSI-Medicaid [id number] ANSI-Medicaid [id number] [facility] MEDICAID [id number] S [id number] MEDICAID M [id number] S [id number] MEDICAID [id number] SP [id number] HMO BLUE [id number] SP [id number] [employer] [id number] MEDICAID [id number] SP [id number] SELF PAY UNAVAILABLE UNAVAILA BLE [employer] [facility] [employer] (HMO) Self [facility] MEDICAID [facility] HMO [id number] S [id number] SELF PAY SP [id number] S [id number] Problems, Conditions, and Diagnoses Code Display Name Description Problem Type Effective Dates Data Source(s) Z34.80 care Supervision of other normal P kaitlin 02/09/2020 12:00:00 AM EDT eCW1 ([facility]) F43.20 Adjustment disorder Adjustment disorder Problem 0 12/22/2019 12:00:00 AM EDT eCW1 ([facility]) F41.8 [id number] Depression with anxiety Problem 11/02/2019 1 2:00:00 AM EDT eCW1 ([facility]) N92.6 [id number] Missed menses Problem 11/02/2019 12:00:00 AM EDT eCW1 ([facility]) O90.0 Disruption of delivery wound Di sruption of delivery wound Diagnosis 05/20/2020 02:13:33 PM [facility] Z3A.00 Weeks of gestation of not spec ified WEEKS OF GESTATION OF NOT SPECIFIED Diagnosis 02/04/2020 01:00:00 PM [facility] pital F43.20 Adjustment disorder, unspecified ADJUSTMENT DISO RDER, UNSPECIFIED Diagnosis 02/04/2020 01:00:00 PM [facility] O99.340 Other mental disorders complicating preg sheryl, unspecified trimester OTH MENTAL DISORDERS COMPLICATING , UNSP TRIMESTER Diagnosis 02/04/2020 01:00:00 PM [facility] Z3A.14 14 weeks gestation of 14 WEEKS GESTATI ON OF Diagnosis 01/29/2020 10:30:00 AM [facility] O99.342 Other mental disorders complicating preg sheryl, second trimester OTH MENTAL DISORDERS COMP , SECOND TRIMESTER Diagnosis 05/2019 10:30:00 AM [facility] 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 O THER DETENTION (CURRENT) DRUG THERAPY Diagnosis 01/02/2020 11:45:00 AM [facility] Z3A.09 9 weeks gestation of 9 WEEKS GESTATION OF HI EGNANCY Diagnosis 01/02/2020 11:45:00 AM [facility] O26.851 Spotting complicating , first t rimester SPOTTING COMPLICATING , FIRST TRIMESTER Diagnosis 01/02/2020 11:45:00 AM [facility] O20.8 Other hemorrhage in early OTHER HEMORR LASHANDA IN EARLY Diagnosis 12/15/2019 02:00:00 PM [facility] R10.32 Left lower quadrant pain LEFT LOWER QUADRANT PAIN Diag nosis 12/15/2019 02:00:00 PM [facility] Z3A.01 Less than 8 weeks gestation of LESS THAN 8 WEEKS GESTATION OF Diagnosis 12/15/2019 02:00:00 PM [facility] Z32.01 Encounter for test, result pos itive ENCOUNTER FOR TEST, RESULT POSITIVE Diagnosis 11/30/2019 01:59:00 PM [facility] F41.8 Other specified anxiety disorders OTHER SPECIFIE D ANXIETY DISORDERS Diagnosis 11/30/2019 01:59:00 PM [facility] Z32.02 Encounter for test, result neg ative ENCOUNTER FOR TEST, RESULT NEGATIVE Diagnosis 11/02/2019 07:34:00 AM [facility] Z91.89 Other specified personal risk factors, n ot elsewhere classified OTH PERSONAL RISK FACTORS, NOT ELSEWHERE CLASSIFIE Diagnosis 020 07:34:00 AM [facility] N92.6 Irregular menstruation, unspecified IRREGULAR ME NSTRUATION, UNSPECIFIED Diagnosis 11/02/2019 07:34:00 AM [facility] H60.512 Acute actinic otitis externa, left ear A CUTE ACTINIC OTITIS EXTERNA, LEFT EAR Diagnosis 05/15/2019 10:11:00 AM [facility] Results ID Date Data Source [id number] 05/26/2020 02:02:08 PM [facility] Hospital Name Value Range Interpretation Code Description Data Samantha rce(s) Supporting Document(s) Progress Note [facility] ZKSFIe7cCnNQMbAg04/OSPcaKCQlr7UvFNqiGNe4LQaaVMAqW4GnFQK6gR1hYXU5KZnFHmInGsNzYBS5 [facility] [file] ICAgICAgICAgICAgICAgICAgICAgICAgICAgICAgICAgICAgICAgICAgICAgICAgICAgICAgICAgICAg ICAgICAgICAgICAgICAgICAgICAgICAgICAgICAgIC AgICAgDQogICAgICAgICAgICAgICAgICAgICAgICAgICAgICAgICAgICAgICAgICAgICAgICAgICAgIC AgICAgICAgICAgICAgICAgICAgICAgICAgICAgICAgICAgICAgICAgICAgICAgDQogICAgICAgICAgIC AgICAgICAgICAgICAgICAgICAgICAgICAgICAgICAg ICAgICAgICAgICAgICAgICAgICAgICAgICAgICAgICAgICAgICAgICAgICAgICAgICAgICAgICAgDQog ICAgICAgICAgICAgICAgICAgICAgICAgICAgICAgICAgICAgICAgICAgICAgICAgICAgICAgICAgICAg ICAgICAgICAgICAgICAgICAgICAgICAgICAgICAgIC AgICAgICAgDQogICAgICAgICAgICAgICAgICAgICAgICAgICAgICAgICAgICAgICAgICAgICAgICAgIC AgICAgICAgICAgICAgICAgICAgICAgICAgICAgICAgICAgICAgICAgICAgICAgICAgDQogICAgICAgIC AgICAgICAgICAgICAgICAgICAgICAgICAgICAgICAg ICAgICAgICAgICAgICAgICAgICAgICAgICAgICAgICAgICAgICAgICAgICAgICAgICAgICAgICAgICAg DQogICAgICAgICAgICAgICAgICAgICAgICAgICAgICAgICAgICAgICAgICAgICAgICAgICAgICAgICAg ICAgICAgICAgICAgICAgICAgICAgICAgICAgICAgIC AgICAgICAgICAgDQogICAgICAgICAgICAgICAgICAgICAgICAgICAgICAgICAgICAgICAgICAgICAgIC AgICAgICAgICAgICAgICAgICAgICAgICAgICAgICAgICAgICAgICAgICAgICAgICAgICAgDQogICAgIC AgICAgICAgICAgICAgICAgICAgICAgICAgICAgICAg ICAgICAgICAgICAgICAgICAgICAgICAgICAgICAgICAgICAgICAgICAgICAgICAgICAgICAgICAgICAg ICAgDQogICAgICAgICAgICAgICAgICAgICAgICAgICAgICAgICAgICAgICAgICAgICAgICAgICAgICAg ICAgICAgICAgICAgICAgICAgICAgICAgICAgICAgIC ZzFLYfVLPsQOUiZEOtFWk9R3tmTJKjVKCfLU0jRGp8Bl1+EIhTApRgDZH2sqZgvH1DAU0kq9BvAEssXI Bpy8IrOXo2QA8ADHToXXivIW2EOYsprc1EHOGsNBXzcLGVe6xcFwZyCXK5KQEeMxwzYW5QUMHsX9kgva AuCSUsNBCQMJyxGAFTUY7RUdDpY1VkhJ31EICPLo1+ TWxdgkGdUjjGMnB7OVDbx2CrWOe1KC9GOLOvGblki4AlSiOwNJLFMSgpCH0PNAI0RYW8ZCIqHy6SFQCr K368ukLuTX9DDs4JEaIcBP3oxr4DWzByMVSqXkhOJzy7CTskXO8GiSHbYMdKny2axgDqnfLVm3VccwBf hEXTAS1cbKJxpuCDVKclmYvfujdbKgNpLTYzAA9qRK 5vFKTwRHCaKdThJMETUT1IXGEaIZMgqNHfLURvOZVBEE5IWAsuDNE8JYCffcBcnLDuYKhvBV0DPBFpdp QgMjQgMCBSDQo+Pb6ILO6ef5VkGWvdJwVyDH6gyp7CIMiGTaHeW3A5iATmV2B6HJjxZd6NHWGwYCQcWw RsNEMSXOizFS0RSZ4ccvN1JL8VwUUvYSUnCGDjaQOh XNo7I80dbPOhBDwdTR6MKUL+Caren+Ah1VGQJuMKIbRFWbXfVhOEHSTtHpH7XnK7YXa8UaY3UcVP67tQqz eeDgOCpbWW0FUW4fSEKqZJJQEE6SfPRdlY8lwxCaNBJjFAWXTlCjF21qxPPwUQVlFPCeXULwYs4XWDZr P6ChnwGoeZevabZuBTTvYIWVJK1NMCppjuViaVJchH drCO42uWgzCT2OGb2JStYzUK2njk1XuNBwBd5VKEWiQn6TBWFpMERwHAGsZAD0WGSmMaRgOHtpBNHoYA IjZRV5CHEnJMWcAW3QUlBzZZZmHbT5GWXlYVFdHKCzrd2YHCTwJVOtElGxVTNdFZIoRTWmCCabPCGoGN YgMDE5TTHwIKZlHY8BVtNvIZQsCOTvBETeRRQgQXJr vs2YAEWgFKAsOfBhLsQhIVYePDKnTLrfQBOtKTF4KKU9OCHhKVHlCQ9AUbXjPYIrIAVzTRxxJOAvFEEw vh4IUQZsHQAgGOF2XhYbOBXwTGVhYMnxEUYaSJH6WCXeVYCeXSRdGB8EYeOlQCTkZOG8HVVfMDMfJKQk fa9WFLDsXLPdRfPwMfVePEYhNXXzCVszWAMjTHR6JI W2BGCfYDPgIJ0XZnPlBZQlQHR3SRLeWTQrYRDkny9ROQXwVPFzGOF9CNEfUYNjKAMdGKoyFZBvAWO5Uq R1RKOtJMHlRJ5SIwQvFCTrFIt4TgOtBIMhPGRbia0WZWAbZVDxKEQjIjKfUSGzVDRtBNgsRCZxVYS3Ew R8BREnOXEjGS1IYdFdSJVmAiGmBLNsUVVuEKXedf3N DZGfGPHfOCS0OnArZMRrRBGwVWcxGZMrLWKwXVwmYMRmSYXjXS2POcDaLXPmCfX8GQkvWRJiXRCvxb7Z JQRqLAGpZeCjRpHsJJJxBKQaOVctNYKzVZAvIKSgFPJmVZDbPR3VEnBgZWBvCgC1HRCqEQWvZYXonl5Z sQJdjXwwez0EHGzDUs6YkKsdIAF8VRbjCv3cgPKhXi JwYTCZDl4CysDpUGEpLVOMPVrmZRGrEDD5F8G9GFG5VXWuEBC0LLYxEMP3ZvW6C2JbC4HxKfI6HzQ3Ng k0BYf9OPEqZIZ1YNDqHWWvGNE8Frc6HyQgHWAyGKB+GP2oCBr+Qv5Rg4ItlzQ2yyHgHQmuDby2SS3RTZ SEC2GNQj== ID Date Data Source [id number] 05/20/2020 02:14:[address] [facility] Hospital Name Value Range Interpretation Code Description Data Samantha rce(s) Supporting Document(s) Progress Note [facility] SPHJKk0vFhFVSiAw45/RHTpnDFIhu5PcIGujPQz1SCtiNGZpG3SaUPM3oH4sKRW7HHzTPwYbAmYaDBVq lbm OwHjlDYvLhVIIvUnvAKkHcMZpeTeuhjXPwTB0EyAM8TUAeI23bELLpKCIhN7NcCDByKbC+Tx9OWWWkgV VaWI3QKrlM5M09vveCQc+/QL/UXZRoF8KGFjJ1XeAjHJ/kRIllWVIdBHX/KFhS3pE5OA2zE/Ale/Yjd59 [file] YfUK7SOl5YXeT3FZJ1cXGoDm6DJiAvKIcTHrAgMK7LFMh= ID Date Data Source [id number] 05/17/2020 09:03:33 AM EST [facility] Name Value Range Interpretation Code Description Data Samantha rce(s) Supporting Document(s) SODIUM 141 mmol/L (136-145) [facility] POTASSIUM 4.3 mmol/L (3.6-5.2) [facility] CHLORIDE 107 mmol/L (100-108) [facility] CO2 27 mmol/L (22-31) [facility] ANION GAP 7 mmol/L (7-16) [facility] UREA NITROGEN 14 mg/dL (7-24) [facility] CREATININE 0.90 mg/dL (0.60-1.00) [facility] BUN/CREAT RATIO 15.6 RATIO (10.0-20.0) [facility] GLUCOSE 80 mg/dL (70-99) [facility] CALCIUM 9.3 mg/dL (8.4-10.2) [facility] GFR >60 ml/min/1.73m2 (>59) [facility] GFR ( AMER) >60 ml/min/1.73m2 (>59) [facility] GFR INTERPRETATION Lab [facility] [place] --NORMAL KIDNEY FUNCTION OR MILD DISEASE - GFR >OR= 60CHRONIC KIDNEY DISEASE - GFR 15 - 59RENAL FAILURE - GFR <15 Est. GFR calculation based on the MDRDstudy equation, which assumes a steadystate for creatinine. Est. GFR should notbe used for medication dosing. ID Date Data Source [id number] 05/17/2020 08:37:45 AM EST [facility] Name Value Range Interpretation Code Description Data Samantha rce(s) Supporting Document(s) WBC 8.7 10*3/uL (4.1-11.0) [facility] [place] RBC 3.04 10*6/uL (4.00-5.40) L [facility] HGB 8.9 g/dL (12.0-16.0) L [facility] HCT 27.5 % (36.0-47.0) L [facility] MCV 90.4 fL (80.0-95.0) [facility] MCH 29.2 pg (27.0-32.0) [facility] MCHC 32.2 g/dL (32.0-36.0) [facility] RDW 15.1 % (10.5-14.5) H [facility] PLT 551 10*3/uL (150-450) H [facility] MPV 6.1 fL (7.1-10.7) L [facility] NEUT % 54.9 % (35.0-75.0) [facility] LYMPH % 30.0 % (16.0-52.0) [facility] MONO % 8.5 % (0.0-8.0) H [facility] EOS % 5.3 % (0.0-5.0) H [facility] BASO % 1.3 % (0.0-4.0) [facility] NEUT # 4.8 10*3/uL (1.8-7.7) [facility] LYMPH # 2.6 10*3/uL (1.2-4.8) [facility] MONO # 0.7 10*3/uL (0.0-0.8) [facility] Eosinophils [#/volume] in Blood by Automated count 0.5 10*3/uL (0.0-0 .5) [facility] BASO # 0.1 10*3/uL (0.0-0.2) [facility] ID Date Data Source [id number] 05/15/2020 06:44:00 PM [facility] DATE OF EXAM: 05/15/2020T PELVIS WITH I V CONTRAST INDICATION: Assess fluid collection were drained placed. Minimal output from drain in the past 24 hours.COMPARISON: 05/12/2020TECHNIQUE: Axial CT scanning of the pelvis was performed from the pelvic inlet through the pubic symphysis. No intravenous contrast was utilized. Axial CT scanning was performed with sagittal and coronal reformatted images reconstructed from the axial data. One or more of the following dose reduction techniques were utilized in effectively lowering the radiation dose for this examination: Automated Exposure Control, Adjustment of the mA and/or kV according to patient size, or Iterative reconstruction. FINDINGS: Again seen is a percutaneous drainage catheter which extends from the anterior pelvis into a fluid collection interposed between the urinary bladder and the uterus. This fluid collection now measures approximately 7 x 5.5 x 1.7 cm and previously measured 9.4 x 7.4 x 3.7 cm. The tip of the drainage catheter is at the posterior aspect of this collection and most of the residual fluid is seen more anteriorly along with a small amount of gas. A small amount of gas is also seen in the subcutaneous soft tissues however no focal abscess collection is seen in the subcutaneous tissues. Again seen is an enlarged uterus and ovaries bilaterally. Visualized portions of the bowel are unremarkable without evidence of obstruction. IMPRESSION: The catheter seen within the abscess cavity which has decreased in size. K3End of diagnostic report for accession: [id number] Interpreted: Mateo Childress MDTranscribed: 05/15/2020 06:29 PMSigned: 05/15/2020 06:44 PM Mateo Childress MD [facility] ACC # [id number] BILL # [id number] Name Value Range Interpretation Code Description Data [facility](s) Supporting Document(s) ID Date Data Source [id number] 05/17/2020 10:05:00 AM [facility] DATE OF EXAM: 1DRAINAGE CATHETE R REPLACEMENT INDICATION: Leakage around existing catheter. PROCEDURE: The existing catheter was occluded leading to drainage along the catheter. This was removed over guidewire and exchanged for a 12-[place] Van Ricardo catheter with larger side holes, hopefully minimizing the chance of catheter occlusion. Limited contrast injection confirmed adequate position within the abscess. IMPRESSION: Catheter replacement. Fluoroscopy time: 45 seconds Number fluoroscopic images saved: 2 Professional interpretation performed at [facility] End of diagnostic report for accession: [id number] Interpreted: Marisa Kruse MDTranscribed: 05/17/2020 10:03 AMSigned: 05/17/2020 10:05 AM Marisa Kruse MD [facility] ACC # [id number] BILL # [id number] Name Value Range Interpretation Code Description Data [facility](s) Supporting Document(s) ID Date Data Source [id number] 05/13/2020 08:02:09 AM EST [facility] [place] [facility] Name Value Range Interpretation Code Description Data [facility] r[facility](s) Supporting Document(s) CREATININE 0.55 mg/dL (0.60-1.00) L [facility] [place] [facility] GFR >60 ml/min/1.73m2 (>59) [facility] [place] [facility] GFR ( AMER) >60 ml/min/1.73m2 (>59) [facility] [place] [facility] GFR INTERPRETATION [facility] --NORMAL KIDNEY FUNCTION OR MILD DISEASE - GFR >OR= 60CHRONIC KIDNEY DISEASE - GFR 15 - 59RENAL FAILURE - GFR <15 Est. GFR calculation based on the MDRDstudy equation, which assumes a steadystate for creatinine. Est. GFR should notbe used for medication dosing. ID Date Data Source [id number] 05/13/2020 09:44:59 AM EST [facility] Name Value Range Interpretation Code Description [facility] Document[facility]s) SPECIMEN DESCRIPTION [facility] STAPH SCREEN RESULTS (ONEGSA) [facility] COM[facility] [place] [facility] GENE TO DETECT STAPH AUREUS. (2) RT-P CR WAS PERFORMED FOR THE mecA AND [employer] GENES TO DETECT METHICILLIN RESISTANCE IN STAPH AUREUS. ID Date Data Source [id number] 05/12/2020 09:50:00 AM EST [facility] DATE OF EXAM: 05/12/2020T ABDOMEN AND P KELECHI WITH CONTRAST CLINICAL HISTORY: ABSCESS COMPARISON: None CONTRAST:100 mL of Omnipaque 300 were administered intravenously TECHNIQUE: Axial images were obtained of the abdomen and pelvis. Coronal and sagittal multiplanar reformats were generated and reviewed. One or more of the following dose reduction techniques were utilized in effectively lowering the radiation dose for this examination: Automated Exposure Control, Adjustment of the mA and/or kV according to patient size, or Iterative reconstruction. FINDINGS: LOWER CHEST: Unremarkable. LIVER/BILE DUCTS: A focus of hypoattenuation within the left hepatic lobe adjacent to the falciform ligament likely represents focal fatty infiltration and/or perfusional changes. GALLBLADDER: Unremarkable. SPLEEN: Unremarkable. PANCREAS: Unremarkable. ADRENALS: Unremarkable. KIDNEYS/URETERS: No evidence of hydronephrosis. There is a punctate nonobstructing stone in the interpolar region of the right kidney and a 0.3 cm nonobstructing stone within the right kidney interpolar/lower pole region. BOWEL: The bowel is normal in appearance. The appendix is visualized and normal in appearance. No periappendiceal inflammatory changes are identified to suggest appendicitis. LYMPH NODES: Unremarkable. RETROPERITONEUM/PERITONEUM: Unremarkable. VESSELS: No significant atherosclerotic disease is seen within the aorta. The aorta is normal in course and caliber. PELVIC ORGANS: Postsurgical changes of recent section, there is a 5.3 x 7.4 x 9.4 cm complex fluid collection with in ternal foci of gas located interposed between the uterus and anterior body wall. This collection demonstrates mild surrounding fat stranding and a thin hyperenhancing wall. The locking loop of a drainage catheter is identified within this collection. Note is made of a small focus of gas within the left adnexal region, just lateral to the above-described collection, measuring less than 1 cm. Possibly representing a second tiny collection. Within the endometrial cavity of the right lateral aspect of the fundal region is a 2.9 x 4.3 x 2.6 cm hyperdense fluid collection (52 Hounsfield units). There are several foci of focal increased density along the lateral margin of this fluid (2:60/85). There is fat stranding extending along the lower anterior body wall incision site. A small focus of gas is identified along the right lateral margin of the body wall incision, thought to be postsurgical. BLADDER: Unremarkable. BONES: Unremarkable. IMPRESSION: Status post section, with a 9.4 cm postsurgical collection/abscess anterior to the uterus. An appropriately positioned drain is identified within this collection. A 4.3 cm hyperdense fluid collection is identified within the right lateral aspect of the fundal endometrial cavity, favored to represent blood products. The presence of hyperdense material along the right lateral periphery of this collection raises the possibility of slow continued bleeding. Consider also the possibility of retained products of conception. Professional interpretation performed at [facility] .End of diagnostic report for accession: [id number] Interpreted: Christopher Restrepo MDTranscribed: 05/12/2020 09:33 AMSigned: 05/12/2020 09:50 AM Christopher Restrepo MD [facility] # [id number] BILL # [id number] Name Value Range Interpretation Code Description Data Samantha rce(s) Supporting Document(s) ID Date Data Source [id number] 05/12/2020 07:33:34 AM EST [facility] Name Value Range Interpretation Code Description Data Samantha rce(s) Supporting Document(s) VANCOMYCIN TROUGH 11.0 ug/mL (10.0-20.0) [facility] ID Date Data Source [id number] 05/12/2020 07:33:34 AM EST [facility] Name Value Range Interpretation Code Description Data Samantha rce(s) Supporting Document(s) CREATININE 0.65 mg/dL (0.60-1.00) [facility] GFR >60 ml/min/1.73m2 (>59) [facility] GFR ( AMER) >60 ml/min/1.73m2 (>59) [facility] GFR INTERPRETATION [facility] --NORMAL KIDNEY FUNCTION OR MILD DISEASE - GFR >OR= 60CHRONIC KIDNEY DISEASE - GFR 15 - 59RENAL FAILURE - GFR <15 Est. GFR calculation based on the MDRDstudy equation, which assumes a steadystate for creatinine. Est. GFR should notbe used for medication dosing. ID Date Data Source [id number] 05/11/2020 07:30:56 AM EST [facility] Name Value Range Interpretation Code Description Data Samantha rce(s) Supporting Document(s) CREATININE 0.56 mg/dL (0.60-1.00) L [facility] GFR >60 ml/min/1.73m2 (>59) [facility] GFR ( AMER) >60 ml/min/1.73m2 (>59) [facility] GFR INTERPRETATION [facility] --NORMAL KIDNEY FUNCTION OR MILD DISEASE - GFR >OR= 60CHRONIC KIDNEY DISEASE - GFR 15 - 59RENAL FAILURE - GFR <15 Est. GFR calculation based on the MDRDstudy equation, which assumes a steadystate for creatinine. Est. GFR should notbe used for medication dosing. ID Date Data Source [id number] 05/11/2020 07:30:56 AM EST [facility] [place] Name Value Range Interpretation Code Description Data Samantha rce(s) Supporting Document(s) VANCOMYCIN RANDOM 11.4 ug/mL [facility] THERAPEUTIC RANGE IS ONLY AVAILABLE FOR PEAK AND TROUGH SPECIMENS. RANDOM LEVEL RESULTS MUST BE INTERPRETED BY THE PHYSICIAN. ID Date Data Source [id number] 05/10/2020 08:00:06 AM EST [facility] [place] Name Value Range Interpretation Code Description Data Samantha rce(s) Supporting Document(s) VANCOMYCIN TROUGH 8.5 ug/mL (10.0-20.0) L [facility] ID Date Data Source [id number] 05/10/2020 08:00:06 AM EST [facility] Name Value Range Interpretation Code Description Data Samantha rce(s) Supporting Document(s) CREATININE 0.56 mg/dL (0.60-1.00) L [facility] GFR >60 ml/min/1.73m2 (>59) [facility] GFR ( AMER) >60 ml/min/1.73m2 (>59) [facility] GFR INTERPRETATION [facility] --NORMAL KIDNEY FUNCTION OR MILD DISEASE - GFR >OR= 60CHRONIC KIDNEY DISEASE - GFR 15 - 59RENAL FAILURE - GFR <15 Est. GFR calculation based on the MDRDstudy equation, which assumes a steadystate for creatinine. Est. GFR should notbe used for medication dosing. ID Date Data Source [id number] 05/10/2020 07:32:25 AM EST [facility] Name Value Range Interpretation Code Description Data Samantha rce(s) Supporting Document(s) WBC 10.0 10*3/uL (4.1-11.0) [facility] RBC 2.47 10*6/uL (4.00-5.40) L [facility] HGB 7.6 g/dL (12.0-16.0) L [facility] HCT 22.7 % (36.0-47.0) L [facility] MCV 91.8 fL (80.0-95.0) [facility] MCH 30.6 pg (27.0-32.0) [facility] MCHC 33.3 g/dL (32.0-36.0) [facility] RDW 14.9 % (10.5-14.5) H [facility] PLT 532 10*3/uL (150-450) H [facility] MPV 6.5 fL (7.1-10.7) L [facility] ID Date Data Source [id number] 05/09/2020 04:03:00 PM EST [facility] DATE OF EXAM: 05/09/2020T GUIDED ABSCES S DRAINAGE. INDICATION: post abscess COMPARISON: Prior Outside CT TECHNIQUE: Informed consent obtained from the patient who understands risks of bleeding and sepsis. Preliminary CT shows unchanged complex fluid collection in the anterior pelvis. Using sterile technique and local anesthetic, 19-gauge needle was advanced into the collection with CT guidance. Thick brown fluid was aspirated and sent for culture and sensitivity. Using Seldinger technique, 12French pigtail catheter was placed and 50 cc of thck brown fluid was drained. Sterile adhesive dressing was applied. Drainage tube was placed to viktoriya bag and orders for irrigation were entered in the computer. Patient tolerated the procedure well and was discharged with stable vital signs. Radiation exposure: 1362mAs. SEDATION: Intravenous doses of Fentanyl and Versed were administered with constant vital sign and oxymetry monitoring over a period of 30 minutes. IMPRESSION: 12 Sudanese pigtail drainage of pelvic abscess Suggest followup CT and/or tube study when drainage stops. Professional interpretation performed at [facility] [phone] of diagnostic report for accession: [id number] Interpreted: Gamal Marrero MDTranscribed: 05/09/2020 03:59 PMSigned: 05/09/2020 04:03 PM Gamal Marrero MD ------ [facility] # [id number] [facility] # [id number] Name Value Range Interpretation Code Description Data Samantha rce(s) Supporting Document(s) ID Date Data Source [id number] 05/12/2020 08:00:53 AM EST [facility] SPECIMEN DESCRIPTION SITE RELUI ABCESSSPECIAL REQUESTS NONECULTURE RESULTS NO ANAEROBES ISOLATEDREPORT STATUS FINAL 05/12/2020 Name Value Range Interpretation Code Description Data Samantha rce(s) Supporting Document(s) ID Date Data Source [id number] 05/11/2020 08:09:16 AM EST [facility] SPECIMEN DESCRIPTION SITE RELUI ABSCESSSPECIAL REQUESTS NONEGRAM STAIN RARE (<1/LPF) WHITE BLOOD CELLS NO BACTERIACULTURE RESULTS NO GROWTHREPORT STATUS FINAL 05/11/2020 Name Value Range Interpretation Code Description Data Samantha rce(s) Supporting Document(s) ID Date Data Source [id number] 05/09/2020 06:46:22 PM EST [facility] SPECIMEN DESCRIPTION SITE REL ABCESSSPECIAL REQUESTS NONEGRAM STAIN NOT DONECULTURE RESULTS TEST(S) PROCESSED UNDER NEW ENTRY PLEASE SEE [facility] [id number]. [id number] STATUS FINAL 05/09/2020 Name Value Range Interpretation Code Description Data Samantha rce(s) Supporting Document(s) ID Date Data Source [id number] 05/09/2020 04:43:28 AM EST [facility] Name Value Range Interpretation Code Description Data Samantha rce(s) Supporting Document(s) APTT 29.0 s (22.0-34.3) [facility] Robby Henriquez ID Date Data Source [id number] 05/09/2020 04:43:28 AM EST [facility] Name Value Range Interpretation Code Description Data Samantha rce(s) Supporting Document(s) PT 11.4 s (9.2-11.9) [facility] INR 1.09 [facility] SUGGESTED THERAPEUTIC RANGES USING INR F ORSTABILIZED ANTICOAGULATED PATIENTS:STANDARD DOSE THERAPY INR 2.0-3.0 DVT, PE, PREVENT DVT OR EMBOLISMHIGH DOSE THERAPY INR 2.5-3.5 PREVENT EMBOLISM FROM MECHANICAL HEART VALVE ID Date Data Source [id number] 05/09/2020 04:53:39 AM EST [facility] Name Value Range Interpretation Code Description Data Samantha rce(s) Supporting Document(s) URINE WBC (0-5) [facility] URINE RBC (0-2) [facility] EPITHELIAL CELLS 1+ [HPF] [facility] ID Date Data Source [id number] 05/09/2020 04:41:23 AM EST [facility] Name Value Range Interpretation Code Description Data Samantha rce(s) Supporting Document(s) SODIUM 142 mmol/L (136-145) [facility] [place] POTASSIUM 4.0 mmol/L (3.6-5.2) [facility] CHLORIDE 108 mmol/L (100-108) [facility] CO2 25 mmol/L (22-31) [facility] ANION GAP 9 mmol/L (7-16) [facility] UREA NITROGEN 7 mg/dL (7-24) [facility] CREATININE 0.59 mg/dL (0.60-1.00) L [facility] BUN/CREAT RATIO 11.9 RATIO (10.0-20.0) [facility] GLUCOSE 93 mg/dL (70-99) [facility] CALCIUM 8.4 mg/dL (8.4-10.2) [facility] TOTAL PROTEIN 5.4 g/dL (6.4-8.2) L [facility] ALBUMIN 2.2 g/dL (3.5-4.6) L [facility] GLOBULIN 3.2 g/dL (2.7-4.3) [facility] ALB/GLOB RATIO 0.7 RATIO [facility] ALKALINE PHOSPHATASE 105 U/L (45-117) [facility] BILIRUBIN,TOTAL 0.2 mg/dL (0.0-1.0) [facility] PLEASE NOTE:Total bilirubin results may be falselyelevated in patients taking Eltrombopag. AST (SGOT) 11 U/L (11-39) [facility] ALT (SGPT) 15 U/L (12-78) [facility] GFR >60 ml/min/1.73m2 (>59) [facility] GFR ( AMER) >60 ml/min/1.73m2 (>59) [facility] GFR INTERPRETATION [facility] --NORMAL KIDNEY FUNCTION OR MILD DISEASE - GFR >OR= 60CHRONIC KIDNEY DISEASE - GFR 15 - 59RENAL FAILURE - GFR <15 Est. GFR calculation based on the MDRDstudy equation, which assumes a steadystate for creatinine. Est. GFR should notbe used for medication dosing. ID Date Data Source [id number] 05/09/2020 04:07:30 AM EST [facility] Name Value Range Interpretation Code Description Data Samantha rce(s) Supporting Document(s) COLOR [facility] APPEARANCE [facility] SPEC GRAV URINE 1.039 (1.003-1.030) H [facility] PH URINE 7.5 (5.0-7.5) [facility] LEUK ESTERASE (NEG) [facility] CRITERIA FOR CULTURE NOT MET.CULTURE CAN BE ADDED WITHIN 36 HOURS OFCOLLECTION. NITRITE URINE (NEG) [facility] PROTEIN URINE (NEG) [facility] GLUCOSE URINE (NEG) [facility] KETONE URINE (NEG) [facility] [place] UROBILINOGEN 1.0 mg/dL (0-1.0) [facility] [place] BILIRUBIN URINE (NEG) [facility] BLOOD/HGB URINE (NEG) A [facility] ID Date Data Source [id number] 05/09/2020 04:03:20 AM EST [facility] Name Value Range Interpretation Code Description Data Samantha rce(s) Supporting Document(s) WBC 11.4 10*3/uL (4.1-11.0) H [facility] RBC 2.64 10*6/uL (4.00-5.40) L [facility] HGB 7.8 g/dL (12.0-16.0) L [facility] HCT 24.1 % (36.0-47.0) L [facility] MCV 91.6 fL (80.0-95.0) [facility] MCH 29.6 pg (27.0-32.0) [facility] MCHC 32.3 g/dL (32.0-36.0) [facility] RDW 14.8 % (10.5-14.5) H [facility] PLT 468 10*3/uL (150-450) H [facility] MPV 6.3 fL (7.1-10.7) L [facility] ID Date Data Source [id number] 05/09/2020 12:13:00 AM EST [facility] Name Value Range Interpretation Code Description Data Samantha rce(s) Supporting Document(s) SARS coronavirus 2 RNA [Presence] in Res piratory specimen by ARRON with probe detection NEGATIVE NYSDOH This lab was ordered by [facility] a nd reported by [facility]. ID Date Data Source [id number] 05/02/2020 04:06:06 PM EST [facility] Name Value Range Interpretation Code Description Data Samantha rce(s) Supporting Document(s) WBC 10.4 10*3/uL (4.1-11.0) [facility] RBC 2.53 10*6/uL (4.00-5.40) L [facility] HGB 7.8 g/dL (12.0-16.0) L [facility] HCT 23.2 % (36.0-47.0) L [facility] MCV 91.6 fL (80.0-95.0) [facility] MCH 31.1 pg (27.0-32.0) [facility] MCHC 33.9 g/dL (32.0-36.0) [facility] RDW 13.7 % (10.5-14.5) [facility] PLT 242 10*3/uL (150-450) [facility] MPV 6.9 fL (7.1-10.7) L [facility] ID Date Data Source [id number] 05/03/2020 04:48:51 PM EST [facility] [place] [address] [id number]# SURGICAL PATHOLOGY REPORTPatient Name:BRAD VERAGLADIS Garcia:1995Received:05/02/2020ccession #:[id number](s) Received: A: PlacentaClinical Diagnosis and History: Gestational age 26.5; PPROM. DIAGNOSIS:311 GM (LARGE FOR GESTATIONAL AGE) PLACENTA WITH TRIVASCULAR UMBILICALCORD. DISRUPTED MEMBRANES SHOWING PROMINENT PIGMENT LADEN MACROPHAGESSUGGESTIVE OF HEMOSIDERIN. IMMATURE CHORIONIC VILLI. PROMINENT HEMORRHAGE. GROSS DESCRIPTION: Placenta, received in formalin labeled with the patient's name: *Weight 311 grams, above the 90th percentile. Measurement 13.5 x 11.5 x 3.5 cm. Umbilical cord: Insertion Indeterminate (disrupted placenta). Measurement 35.0 cm in length, 1.2 cm in diameter. Number of vessels Three. Appearance Normal coiled with a right to left twist andshows prominent blood engorged vessels. Membranes: Insertion Grossly consistent with marginal (markedmembrane fragmentation). Site of rupture Indeterminate due to marked fragmentation ofmembranes. Appearance Gipson-pink and semi- translucent. Comments: The placental disc is markedly disrupted. The surface istan-pink and partially intact showing a normal pattern of vasculararborization. Noted at the periphery of the placental disc is an 8.5 x3.7 x 3.0 cm area of loosely adherent red-brown mottled clotted blood. The maternal surface is pink to red and markedly disrupted with areas ofexposed placental parenchyma. Evidence of lobule formation is present. The placenta is sectioned and the cut surfaces adjacent to the adherentmottled clotted blood noted at the disc edge is grossly compressed by theblood clot. Additionally noted toward the periphery of the placental discis a 3.1 x 2.0 x 1.8 cm area of surface based hemorrhage which alsocauses compression of the placental parenchyma. These two areas togetherinvolve approximately 40% of the placental tissue. Also noted on the cutsurface toward the periphery of the placental disc is a 2.9 x 1.8 x 1.0 cmarea of rubbery gipson-yellow fibrin which grossly extends most of thethickness of the placental disc and involves approximately 5% of theplacental parenchyma. The remaining cut surfaces show red to pinkplacental parenchyma without additional focal gross lesions. Additionallyincluded in the specimen container is an 8.8 x 4.0 x 2.5 cm aggregate ofboth dark red and gipson- brown mottled clotted blood. Sections are submittedfor microscopic examination to include compressed parenchyma adjacent tothe peripheral blood clot in block 1, compressed placental parenchymaassociated with the surface based area of hemorrhage in block 2, aportion of compressed parenchyma associated with the surface basedhemorrhage in block 3, and the area of fibrin in block 4. (6 blocks) *Note: Weight given is after formalin fixation. Post fixation weightsare higher than the true wet tissue weight. [email or web address]: 05/03/2020Electronically Signed Out By Erlinda Gonzalez M.D. jzwPathology Associates [place] [address]Technical component performed at [facility], [facility], [address] [place] [address], [phone]Reported at [facility], [address] [place] [address], Formerly [facility], [facility].This report may include immunohistochemical or in-situ hybridizationresults. Testing was developed and the performance characteristicsdetermined by [facility], as required byCLIA '88. The FDA has determined that approval for specific use is notnecessary for clinical use. The quality of Hematoxylin and Eosin stainsand as applicable, for all immunohistochemical and/or special stains,including positive and negative controls, were reviewed and consideredappropriate.ICD codes: O43.675ZJU4 codes: A: 56734L Name Value Range Interpretation Code Description Data Samantha rce(s) Supporting Document(s) ID Date Data Source [id number] 04/30/2020 05:55:25 AM EST [facility] Name Value Range Interpretation Code Description Data [facility] Supporting Document(s) WBC 11.5 10*3/uL (4.1-11.0) H [facility] RBC 3.17 10*6/uL (4.00-5.40) L [facility] HGB 9.9 g/dL (12.0-16.0) L [facility] HCT 28.8 % (36.0-47.0) L [facility] MCV 90.8 fL (80.0-95.0) [facility] MCH 31.2 pg (27.0-32.0) [facility] MCHC 34.3 g/dL (32.0-36.0) [facility] RDW 13.3 % (10.5-14.5) [facility] PLT 292 10*3/uL (150-450) [facility] MPV 7.5 fL (7.1-10.7) [facility] ID Date Data Source [id number] 04/29/2020 05:04:45 AM EST [facility] Name Value Range Interpretation Code Description Data Samantha rce(s) Supporting Document(s) MAGNESIUM 5.4 mg/dL (1.7-2.4) HH [facility] RESULT(S) [place] [id number] AT 0503 ID Date Data Source [id number] 04/28/2020 09:48:25 AM EST [facility] Name Value Range Interpretation Code Description Data Samantha rce(s) Supporting Document(s) WBC 10.6 10*3/uL (4.1-11.0) [facility] RBC 3.46 10*6/uL (4.00-5.40) L [facility] HGB 10.7 g/dL (12.0-16.0) L [facility] HCT 31.8 % (36.0-47.0) L [facility] MCV 91.9 fL (80.0-95.0) [facility] MCH 31.1 pg (27.0-32.0) [facility] MCHC 33.8 g/dL (32.0-36.0) [facility] RDW 13.3 % (10.5-14.5) [facility] PLT 292 10*3/uL (150-450) [facility] MPV 7.5 fL (7.1-10.7) [facility] ID Date Data Source [id number] 04/28/2020 08:05:44 AM EST [facility] SPEC EXP DATE 1PATI ENT ABO/Rh O POSITIVEANTIBODY SCREEN NEGATIVETESTING SITE PERFORMED AT [address] [place], [place] [address]OOD BANK COMMENT BLOOD TYPE CONFIRMED. Name Value Range Interpretation Code Description Data Samantha rce(s) Supporting Document(s) TYPE AND SCREEN [facility] PATIENT ABO/Rh O POSITIVE ID Date Data Source [id number] 04/26/2020 06:55:16 AM EST [facility] Name Value Range Interpretation Code Description Data Samantha rce(s) Supporting Document(s) WBC 11.2 10*3/uL (4.1-11.0) H [facility] RBC 3.50 10*6/uL (4.00-5.40) L [facility] HGB 10.8 g/dL (12.0-16.0) L [facility] HCT 32.0 % (36.0-47.0) L [facility] MCV 91.3 fL (80.0-95.0) [facility] MCH 30.8 pg (27.0-32.0) [facility] MCHC 33.7 g/dL (32.0-36.0) [facility] RDW 13.0 % (10.5-14.5) [facility] PLT 312 10*3/uL (150-450) [facility] MPV 7.3 fL (7.1-10.7) [facility] NEUT % 67.5 % (35.0-75.0) [facility] LYMPH % 21.8 % (16.0-52.0) [facility] MONO % 7.0 % (0.0-8.0) [facility] EOS % 3.5 % (0.0-5.0) [facility] BASO % 0.2 % (0.0-4.0) [facility] NEUT # 7.5 10*3/uL (1.8-7.7) [facility] LYMPH # 2.4 10*3/uL (1.2-4.8) [facility] MONO # 0.8 10*3/uL (0.0-0.8) [facility] Eosinophils [#/volume] in Blood by Automated count 0.4 10*3/uL (0.0-0 .5) [facility] BASO # 0.0 10*3/uL (0.0-0.2) [facility] ID Date Data Source [id number] 04/25/2020 11:59:00 AM EST [facility] DATE OF EXAM: 04/25/2020Limited OBSTETRI BALDEV SONOGRAM INDICATION: Abruption , Approximate Gestational age - 25 weeks 3 days COMPARISON: 04/22/2020 TECHNIQUE: Images of the pelvis were obtained using transabdominal technique. Umbilical artery Doppler evaluation was performed. FINDINGS: The examination demonstrates a single intrauterine gestation in a breech presentation. The heart rate is 157 beats per minute. The placenta is located anterior. There is an abruption noted in the left lateral aspect measuring 8.4 x 6.4 x 2.9 cm, previously 7.7 x 6.0 x 2.4 cm.. There is anhydramnios. Amniotic fluid index is 0cm. The cervical length is 3.7cm. The umbilical artery average systolic to diastolic velocity ratio is 2.19. IMPRESSION: Gestation - singlePresentation - breechPlacenta - anterior, left lateral abruption Amniotic fluid - anhydramnios, NOA 0Comments: The umbilical artery average systolic to diastolic velocity ratio is 2.19. Professional interpretation performed by [facility] End of diagnostic report for accession: [id number] Interpreted: John Mcgraw MDTranscribed: 04/25/2020 11:55 AMSigned: 04/25/2020 11:59 AM John Mcgraw MD [facility] # [id number] BILL # [id number] Name Value Range Interpretation Code Description Data Samantha rce(s) Supporting Document(s) ID Date Data Source [id number] 04/25/2020 11:59:00 AM EST [facility] DATE OF EXAM: 04/25/2020Limited OBSTETRI BALDEV SONOGRAM INDICATION: Abruption , Approximate Gestational age - 25 weeks 3 days COMPARISON: 04/22/2020 TECHNIQUE: Images of the pelvis were obtained using transabdominal technique. Umbilical artery Doppler evaluation was performed. FINDINGS: The examination demonstrates a single intrauterine gestation in a breech presentation. The heart rate is 157 beats per minute. The placenta is located anterior. There is an abruption noted in the left lateral aspect measuring 8.4 x 6.4 x 2.9 cm, previously 7.7 x 6.0 x 2.4 cm.. There is anhydramnios. Amniotic fluid index is 0cm. The cervical length is 3.7cm. The umbilical artery average systolic to diastolic velocity ratio is 2.19. IMPRESSION: Gestation - singlePresentation - breechPlacenta - anterior, left lateral abruption Amniotic fluid - anhydramnios, NOA 0Comments: The umbilical artery average systolic to diastolic velocity ratio is 2.19. Professional interpretation performed by [facility] Medical Imaging at [facility] End of diagnostic report for accession: [id number] Interpreted: John Mcgraw MDTranscribed: 04/25/2020 11:55 AMSigned: 04/25/2020 11:59 AM John Mcgraw MD [facility] ACC # [id number] BILL # [id number] Name Value Range Interpretation Code Description Data [facility](s) Supporting Document(s) ID Date Data Source [id number] 04/24/2020 01:38:28 AM EST [facility] [place] [facility] [place] SPEC EXP DATE 04/27/2020PATI ENT ABO/Rh O POSITIVEANTIBODY SCREEN NEGATIVETESTING SITE PERFORMED AT [address] [place] [address] BANK COMMENT BLOOD TYPE CONFIRMED. Name Value Range Interpretation Code Description Data [facility](s) Supporting Document(s) TYPE AND SCREEN [facility] [place] [facility] PATIENT ABO/Rh O POSITIVE ID Date Data Source [id number] 04/22/2020 04:29:00 PM EST [facility] DATE OF EXAM: 04/22/2020EXAM: US B iophys Profile WO Stress Testing INDICATION: ABRUPTION Total score 6 /8. Amniotic fluid index 7.2 cm, oligohydramnios. 20 minutes of imaging. heart rate 148 bpm. Estimated gestational age 25 weeks zero days IMPRESSION: 6/8 Biophysical Profile. Oligohydramnios. Professional interpretation performed at [facility] .End of diagnostic report for accession: [id number] Interpreted: Mateo Mcgraw MDTranscribed: 04/22/2020 04:26 PMSigned: 04/22/2020 04:29 PM Mateo Mcgraw MD [facility] ACC # [id number] BILL # [id number] Name Value Range Interpretation Code Description Data Samantha rce(s) Supporting Document(s) ID Date Data Source [id number] 04/21/2020 09:00:21 PM EST [facility] [place] [facility] PATIENT ABO/Rh O POSITIVEBLO OD BANK COMMENT BLOOD TYPE CONFIRMED. Name Value Range Interpretation Code Description Data Samantha rce(s) Supporting Document(s) ID Date Data Source [id number] 04/21/2020 05:09:41 AM EST [facility] [place] [facility] Name Value Range Interpretation Code Description Data Samantha rce(s) Supporting Document(s) MAGNESIUM 5.1 mg/dL (1.7-2.4) HH [facility] [place] [facility] CONSISTENT WITH PREVIOUS RESULTS ID Date Data Source [id number] 04/21/2020 05:09:41 AM EST [facility] [place] [facility] Name Value Range Interpretation Code Description Data Samantha rce(s) Supporting Document(s) SODIUM 140 mmol/L (136-145) [facility] [place] [facility] POTASSIUM 3.8 mmol/L (3.6-5.2) [facility] [place] [facility] CHLORIDE 108 mmol/L (100-108) [facility] [place] [facility] CO2 23 mmol/L (22-31) [facility] [place] [facility] ANION GAP 9 mmol/L (7-16) [facility] [place] [facility] UREA NITROGEN 4 mg/dL (7-24) L [facility] [place] [facility] CREATININE 0.66 mg/dL (0.60-1.00) [facility] [place] [facility] BUN/CREAT RATIO 6.1 RATIO (10.0-20.0) L [facility] [place] [facility] GLUCOSE 114 mg/dL (70-99) H [facility] [place] [facility] CALCIUM 7.0 mg/dL (8.4-10.2) L [facility] [place] [facility] TOTAL PROTEIN 5.4 g/dL (6.4-8.2) L [facility] [place] [facility] ALBUMIN 2.5 g/dL (3.5-4.6) L [facility] [place] [facility] GLOBULIN 2.9 g/dL (2.7-4.3) [facility] [place] [facility] ALB/GLOB RATIO 0.9 RATIO [facility] [place] [facility] ALKALINE PHOSPHATASE 108 U/L (45-117) [facility] BILIRUBIN,TOTAL 0.2 mg/dL (0.0-1.0) [facility] [place] [facility] PLEASE NOTE:Total bilirubin results may be falselyelevated in patients taking Eltrombopag. AST (SGOT) 8 U/L (11-39) L [facility] [place] [facility] ALT (SGPT) 14 U/L (12-78) [facility] [place] [facility] GFR >60 ml/min/1.73m2 (>59) [facility] [place] [facility] GFR ( AMER) >60 ml/min/1.73m2 (>59) [facility] [place] [facility] GFR INTERPRETATION [facility] --NORMAL KIDNEY FUNCTION OR MILD DISEASE - GFR >OR= 60CHRONIC KIDNEY DISEASE - GFR 15 - 59RENAL FAILURE - GFR <15 Est. GFR calculation based on the MDRDstudy equation, which assumes a steadystate for creatinine. Est. GFR should notbe used for medication dosing. ID Date Data Source [id number] 04/21/2020 04:43:14 AM EST [facility] [place] [facility] Name Value Range Interpretation Code Description Data Samantha rce(s) Supporting Document(s) WBC 9.4 10*3/uL (4.1-11.0) [facility] [place] [facility] [place] RBC 2.92 10*6/uL (4.00-5.40) L [facility] [place] [facility] HGB 8.9 g/dL (12.0-16.0) L [facility] [place] [facility] HCT 26.5 % (36.0-47.0) L [facility] [place] [facility] MCV 91.0 fL (80.0-95.0) [facility] [place] [facility] MCH 30.5 pg (27.0-32.0) [facility] [place] [facility] MCHC 33.5 g/dL (32.0-36.0) [facility] [place] [facility] RDW 13.0 % (10.5-14.5) [facility] [place] [facility] PLT 319 10*3/uL (150-450) [facility] [place] [facility] MPV 7.0 fL (7.1-10.7) L [facility] [place] [facility] ID Date Data Source [id number] 04/20/2020 03:30:13 PM EST [facility] [place] [facility] Name Value Range Interpretation Code Description Data Samantha rce(s) Supporting Document(s) SODIUM 139 mmol/L (136-145) [facility] [place] [facility] POTASSIUM 4.1 mmol/L (3.6-5.2) [facility] [place] [facility] CHLORIDE 107 mmol/L (100-108) [facility] [place] [facility] CO2 23 mmol/L (22-31) [facility] [place] [facility] ANION GAP 9 mmol/L (7-16) [facility] [place] [facility] UREA NITROGEN 5 mg/dL (7-24) L [facility] [place] [facility] CREATININE 0.68 mg/dL (0.60-1.00) [facility] [place] [facility] BUN/CREAT RATIO 7.4 RATIO (10.0-20.0) L [facility] [place] [facility] GLUCOSE 112 mg/dL (70-99) H [facility] [place] [facility] CALCIUM 7.1 mg/dL (8.4-10.2) L [facility] [place] [facility] TOTAL PROTEIN 5.7 g/dL (6.4-8.2) L [facility] [place] [facility] ALBUMIN 2.7 g/dL (3.5-4.6) L [facility] [place] [facility] GLOBULIN 3.0 g/dL (2.7-4.3) [facility] [place] [facility] ALB/GLOB RATIO 0.9 RATIO [facility] [place] [facility] ALKALINE PHOSPHATASE 123 U/L (45-117) H [facility] BILIRUBIN,TOTAL 0.2 mg/dL (0.0-1.0) [facility] [place] [facility] PLEASE NOTE:Total bilirubin results may be falselyelevated in patients taking Eltrombopag. AST (SGOT) 6 U/L (11-39) L [facility] [place] [facility] ALT (SGPT) 9 U/L (12-78) L [facility] [place] [facility] GFR >60 ml/min/1.73m2 (>59) [facility] [place] [facility] GFR ( AMER) >60 ml/min/1.73m2 (>59) [facility] [place] [facility] GFR INTERPRETATION [facility] --NORMAL KIDNEY FUNCTION OR MILD DISEASE - GFR >OR= 60CHRONIC KIDNEY DISEASE - GFR 15 - 59RENAL FAILURE - GFR <15 Est. GFR calculation based on the MDRDstudy equation, which assumes a steadystate for creatinine. Est. GFR should notbe used for medication dosing. ID Date Data Source [id number] 04/20/2020 02:58:54 PM EST [facility] [place] [facility] Name Value Range Interpretation Code Description Data Samantha rce(s) Supporting Document(s) MAGNESIUM 5.1 mg/dL (1.7-2.4) [facility] [place] [facility] RESULT(S) CALLED TO AND READ BACK AMANDA Taylor ON 04/20/2020 AT [address] [place] [id number] ID Date Data Source [id number] 04/20/2020 02:36:30 PM EST [facility] [place] [facility] Name Value Range Interpretation Code Description Data Samantha rce(s) Supporting Document(s) WBC 8.3 10*3/uL (4.1-11.0) [facility] [place] [facility] [place] RBC 3.12 10*6/uL (4.00-5.40) L [facility] [place] [facility] HGB 9.8 g/dL (12.0-16.0) L [facility] [place] [facility] HCT 28.6 % (36.0-47.0) L [facility] [place] [facility] MCV 91.4 fL (80.0-95.0) [facility] [place] [facility] MCH 31.4 pg (27.0-32.0) [facility] [place] [facility] MCHC 34.4 g/dL (32.0-36.0) [facility] [place] [facility] RDW 13.2 % (10.5-14.5) [facility] [place] [facility] PLT 319 10*3/uL (150-450) [facility] [place] [facility] MPV 7.2 fL (7.1-10.7) [facility] [place] [facility] NEUT % 86.7 % (35.0-75.0) H [facility] [place] [facility] LYMPH % 11.0 % (16.0-52.0) L [facility] [place] [facility] MONO % 1.9 % (0.0-8.0) [facility] [place] [facility] EOS % 0.1 % (0.0-5.0) [facility] [place] [facility] BASO % 0.3 % (0.0-4.0) [facility] [place] [facility] NEUT # 7.2 10*3/uL (1.8-7.7) [facility] [place] [facility] LYMPH # 0.9 10*3/uL (1.2-4.8) L [facility] [place] [facility] MONO # 0.2 10*3/uL (0.0-0.8) [facility] [place] [facility] Eosinophils [#/volume] in Blood by Automated count 0.0 10*3/uL (0.0-0 .5) [facility] [place] [facility] BASO # 0.0 10*3/uL (0.0-0.2) [facility] [place] [facility] ID Date Data Source [id number] 04/20/2020 01:44:54 PM EST [facility] [place] [facility] Name Value Range Interpretation Code Description Data Samantha rce(s) Supporting Document(s) POC GLUCOSE 117 mg/dL (70-99) H [facility] [place] [facility] NOTIFIED NURSEPERFORMED BY CLINICAL S TAFF ID Date Data Source [id number] 04/20/2020 08:52:43 AM EST [facility] [place] [facility] Name Value Range Interpretation Code Description Data Samantha rce(s) Supporting Document(s) WBC 8.3 10*3/uL (4.1-11.0) [facility] [place] [facility] [place] RBC 2.92 10*6/uL (4.00-5.40) L [facility] [place] [facility] HGB 9.1 g/dL (12.0-16.0) L [facility] [place] [facility] HCT 26.4 % (36.0-47.0) L [facility] [place] [facility] MCV 90.3 fL (80.0-95.0) [facility] [place] [facility] MCH 31.0 pg (27.0-32.0) [facility] [place] [facility] MCHC 34.3 g/dL (32.0-36.0) [facility] [place] [facility] RDW 13.1 % (10.5-14.5) [facility] [place] [facility] PLT 317 10*3/uL (150-450) [facility] [place] [facility] MPV 6.9 fL (7.1-10.7) L [facility] [place] [facility] NEUT % 70.9 % (35.0-75.0) [facility] [place] [facility] LYMPH % 21.7 % (16.0-52.0) [facility] [place] [facility] MONO % 6.9 % (0.0-8.0) [facility] [place] [facility] EOS % 0.4 % (0.0-5.0) [facility] [place] [facility] BASO % 0.1 % (0.0-4.0) [facility] [place] [facility] NEUT # 5.9 10*3/uL (1.8-7.7) [facility] [place] [facility] LYMPH # 1.8 10*3/uL (1.2-4.8) [facility] [place] [facility] MONO # 0.6 10*3/uL (0.0-0.8) [facility] [place] [facility] Eosinophils [#/volume] in Blood by Automated count 0.0 10*3/uL (0.0-0 .5) [facility] [place] [facility] BASO # 0.0 10*3/uL (0.0-0.2) [facility] [place] [facility] ID Date Data Source [id number] 04/20/2020 09:01:20 AM EST [facility] [place] [facility] Name Value Range Interpretation Code Description Data Samantha rce(s) Supporting Document(s) APTT 25.2 s (22.0-34.3) [facility] [place] [facility] ID Date Data Source [id number] 04/20/2020 09:01:20 AM EST [facility] [place] [facility] Name Value Range Interpretation Code Description Data Samantha rce(s) Supporting Document(s) PT 10.5 s (9.2-11.9) [facility] [place] lisa DEAN INR 1.00 Lab [facility] SUGGESTED THERAPEUTIC RANGES USING INR F ORSTABILIZED ANTICOAGULATED PATIENTS:STANDARD DOSE THERAPY INR 2.0-3.0 DVT, PE, PREVENT DVT OR EMBOLISMHIGH DOSE THERAPY INR 2.5-3.5 PREVENT EMBOLISM FROM MECHANICAL HEART VALVE ID Date Data Source [id number] 04/20/2020 09:01:20 AM EST [facility] [place] [facility] DEAN Name Value Range Interpretation Code Description Data Samantha rce(s) Supporting Document(s) FIBRINOGEN 414 mg/dL (150-450) [facility] [place] [facility] DEAN ID Date Data Source [id number] 04/20/2020 05:41:32 AM EST [facility] [place] [facility] DEAN Name Value Range Interpretation Code Description Data Samantha rce(s) Supporting Document(s) MAGNESIUM 5.1 mg/dL (1.7-2.4) HH [facility] [place] [facility] [place] RESULT(S) CALLED TO AND READ BACK [place] [address] [id number] AT 0540 ID Date Data Source [id number] 04/20/2020 01:48:31 AM EST [facility] [place] [facility] DEAN Name Value Range Interpretation Code Description Data Samantha rce(s) Supporting Document(s) MAGNESIUM 5.8 mg/dL (1.7-2.4) [facility] [place] [facility] [place] RESULT(S) CALLED TO AND READ BACK BYGARRETT BURGESS 8S 0147 04/20/20 [place] [id number] ID Date Data Source [id number] 04/19/2020 07:56:00 PM EST [facility] DATE OF EXAM: 04/19/2020EXAM: OBSTETRICA L SONOGRAM INDICATION: Abruption, Approximate Gestational age - 24 weeks COMPARISON: None TECHNIQUE: Sonographic images of the pelvis were obtained using transabdominal technique. FINDINGS: The examination demonstrates a single intrauterine gestation in a breech presentation. Biparietal diameter - 55.4 mm, 22 weeks 6 daysHead circumference - 220.1 mm, 24 weeks 0 daysAbdominal circumference - 201.9 mm, 24 weeks 6 daysFemoral length - 45.1 mm, 24 weeks 6 daysHead/abdomen ratio - 1.09 (within normal limits)Femur/abdomen ratio - 22.3 (normal 20-24)Cephalic index - 74.2 (normal 70-86)Approximate weight - 721 grams + / - 10.8 grams (1 pound 9 ounces) Spontaneous motion was demonstrated on real-time examination. There is no evidence of ascites. Fluid is seen in the area of the stomach. There is limited and incomplete evaluation of the skull, ventricles, posterior fossa, upper and lower extremities, heart, bladder, kidneys, vertebra and umbilical cord. The heart rate is 148 beats per minute. The placenta is located anterior, grade 2. There is a heterogeneous 7.7 x 6.0 x 2.4 cm hypoechoic peripheral intraplacental fluid collection most compatible with hematoma and placental abruption. Questionable slow internal vascular flow. There is no evidence of placenta previa. The amount of amniotic fluid is low. Amniotic fluid index is 3.6 cm (50th percentile 14.7 cm and 50% of 9.8 cm) Maternal:Right ovary: NormalLeft ovary: NormalCervical length: 3.2 cm IMPRESSION: Gestation - singlePresentation - breechAverage Gestational age - 24 weeks 6 days Placenta - anterior Amniotic fluid - oligohydramnios with NOA 3.6 cm.Comments: 7.7 x 6.0 x 2.4 cm heterogeneous peripheral intraplacental hematoma with placental abruption. The above significant findings of oligohydramnios and placental abruption with 7.6 x 6.0 x 2.4 cm intraplacental hematoma were discussed with [facility] nurse's station, nurse Milton Real via telephone at 04/19/2020 7:53 PM EST with verification and understanding. K9End of diagnostic report for accession: [id number] Interpreted: Jean-Pierre Scott MDTranscribed: 04/19/2020 07:32 PMSigned: 04/19/2020 07:56 PM Jean-Pierre Scott MD [facility] # [id number] BILL # [id number] Name Value Range Interpretation Code Description Data Samantha rce(s) Supporting Document(s) ID Date Data Source [id number] 04/21/2020 08:09:34 AM EST [facility] [place] SPECIMEN DESCRIPTION VAGINAL/RECT ALSPECIAL REQUESTS SENSITIVITY REQUESTED (IF POSITIVE)CULTURE RESULTS NO BETA HEMOLYTIC STREPTOCOCCI GROUP B ISOLATEDREPORT STATUS FINAL 04/21/2020 Name Value Range Interpretation Code Description Data Samantha rce(s) Supporting Document(s) ID Date Data Source [id number] 04/20/2020 02:36:25 PM EST [facility] [place] [facility] Name Value Range Interpretation Code Description Data Samantha rce(s) Supporting Document(s) SPECIMEN DESCRIPTION [facility] C. TRACHOMATIS (NEG) Lab [facility] THIS ASSAY AMPLIFIES AND DETECTS TARGETD NA USING MASH FILTER OPERATOR- MEDIATEDAMPLIFICATIONTESTING PERFORMED ON JUNTA.CL N. GONORRHOEAE (NEG) [facility] [place] THIS ASSAY AMPLIFIES AND DETECTS TARGETD NA USING MASH FILTER OPERATOR- MEDIATEDAMPLIFICATIONTESTING PERFORMED ON [employer] PANTHER ID Date Data Source [id number] 04/19/2020 06:34:17 PM EST [facility] [place] SPECIMEN DESCRIPTION VAGINAL SPEC IMENRESULT NEGATIVE FOR ROSSY SPECIES BY DNA PROBE NEGATIVE FOR GARDNERELLA VAGINALIS BY DNA PROBE NEGATIVE FOR TRICHOMONAS VAGINALIS BY DNA PROBEPERFORMED AT [address] [facility] [address] REPORT STATUS FINAL 04/19/2020 Name Value Range Interpretation Code Description Data Samantha rce(s) Supporting Document(s) ID Date Data Source [id number] 04/19/2020 08:13:21 PM EST [facility] [place] [facility] Name Value Range Interpretation Code Description Data Samantha rce(s) Supporting Document(s) REAGIN SYPHILIS @ (NR) [facility] [place] ID Date Data Source [id number] 04/19/2020 08:11:06 PM EST [facility] [place] [facility] Name Value Range Interpretation Code Description Data Samantha rce(s) Supporting Document(s) TREPONEMA IGG/IGM @ (NEG) A [facility] malfunction. See REAGIN SYPHILIS testfo r results of manual screening test. ID Date Data Source [id number] 04/19/2020 06:47:58 PM EST [facility] [place] SPEC EXP DATE 04/22/2020PATI ENT ABO/Rh O POSITIVEANTIBODY SCREEN NEGATIVETESTING SITE PERFORMED AT [address] [facility] [address] Name Value Range Interpretation Code Description Data Samantha rce(s) Supporting Document(s) ID Date Data Source [id number] 04/19/2020 05:16:51 PM EST [facility] [place] [facility] Name Value Range Interpretation Code Description Data Samantha rce(s) Supporting Document(s) WBC 10.9 10*3/uL (4.1-11.0) [facility] [place] [facility] RBC 3.56 10*6/uL (4.00-5.40) L [facility] [place] [facility] HGB 11.2 g/dL (12.0-16.0) L [facility] [place] [facility] HCT 32.5 % (36.0-47.0) L [facility] [place] [facility] MCV 91.4 fL (80.0-95.0) [facility] [place] [facility] MCH 31.5 pg (27.0-32.0) [facility] [place] [facility] MCHC 34.4 g/dL (32.0-36.0) [facility] [place] [facility] RDW 12.9 % (10.5-14.5) [facility] [place] [facility] PLT 340 10*3/uL (150-450) [facility] [place] [facility] MPV 7.3 fL (7.1-10.7) [facility] [place] [facility] ID Date Data Source [id number] 04/19/2020 06:36:00 AM EST [facility] Name Value Range Interpretation Code Description Data Samantha rce(s) Supporting Document(s) SARS coronavirus 2 RNA [Presence] in Res piratory specimen by ARRON with probe detection [facility] This lab was ordered by [facility] a nd reported by [facility]. ID Date Data Source WWBC OBS COMPLETE US 03/08/2020 12:00:00 AM EST eCW1 ([facility]) Name Value Range Interpretation Code Description Data Samantha rce(s) Supporting Document(s) WWBC OBS COMPLETE US eCW1 ([facility]) ID Date Data Source URINE CULTURE 02/10/2020 12:00:00 AM EDT eCW1 ([facility]) Name Value Range Interpretation Code Description Data Samantha rce(s) Supporting Document(s) URINE CULTURE eCW1 ([facility]) ID Date Data Source [id number] 01/02/2020 04:14:00 PM EDT [facility] CORRECTED FINAL REPORTCALLED TO [address] SO AUTODILUTION WILL OCCUR Name Value Range Interpretation Code Description Data Samantha rce(s) Supporting Document(s) BETA HCG,QUANT 450738 mIU/mL [facility] Female(non ) <10mIU/mLW eeks after Conception mIU/mL 1 Week 5-501-2 Weeks 50-5002-3 Weeks 100-5,0003-4 Weeks 500-10,0004-5 Weeks 1,000-50,0005-6 Weeks 10,000-100,0006-8 Weeks 15,000-200,0002nd Trimester 10,000-100,000 ID Date Data Source [id number] 12/15/2019 02:42:00 PM EDT [facility] DATE OF EXAMINATION: 12/15/2019 14:03 EDT OB LESS THAN 14 WKS HISTORY: Size and dates Single viable intrauterine gestation with a crown-rump length of 7.4 mmcorresponding to 6 weeks 4 days with a heart rate of 130 bpm is identified.There are no adnexal masses or fluid in the cul-de-sac. There is a smallsubchorionic bleed measures 0.8 x 1 cm. IMPRESSION: Single viable intrauterine gestation with an estimated gestational age of 6weeks 4 days. Small subchorionic hematoma as described above warrants close monitoring onfollow-up. Electronically signed in [id number] by: Vera Motley M.D. 12/15/2019 14:37 EDT Name Value Range Interpretation Code Description Data Samantha rce(s) Supporting Document(s) ID Date Data Source [id number] 11/30/2019 04:03:00 PM EDT [facility] Name Value Range Interpretation Code Description Data Samantha rce(s) Supporting Document(s) BETA HCG,QUANT 1894 mIU/mL [facility] Female(non ) <10mIU/mLW eeks after Conception mIU/mL 1 Week 5-501-2 Weeks 50-5002-3 Weeks 100-5,0003-4 Weeks 500-10,0004-5 Weeks 1,000-50,0005-6 Weeks 10,000-100,0006-8 Weeks 15,000-200,0002nd Trimester 10,000-100,000 Procedure Social History Code Duration Value Status Description Data Source(s ) Smoking 05/11/2020 06:01:00 PM EST Denies Ever Smoked complete d Denies Ever Smoked [facility] Smoking 05/05/2020 12:00:00 AM EST Never Smoker completed Never S moker eCW1 ([facility]) Smoking 04/19/2020 05:57:00 PM EST Denies Ever Smoked complete d Denies Ever Smoked [facility] Smoking 04/04/2020 12:00:00 AM EST Never Smoker completed Never S moker eCW1 ([facility]) Smoking 03/09/2020 12:00:00 AM EST Never Smoker completed Never S moker eCW1 ([facility]) Smoking 03/09/2020 12:00:00 AM EST Never Smoker completed Never S moker eCW1 ([facility]) Vital Signs ID Date Data Source UNK Name Value Range Interpretation Code Description Data Source(s) Body temperature 36.7 cade Normal (applies to non-numeric results) 36.7 cade [facility] Respiratory rate 18 min Normal (applies to non-numeric results) 18 min [facility] Body height 157.2768 cm Normal (applies to non-numeric res ults) 157.2768 cm [facility] Heart rate 70 min Normal (applies to non-numeric resul ts) 70 min [facility] Diastolic blood pressure 73 mm[Hg] Normal (applies to non-numeric results) 73 mm[Hg] [facility] Systolic blood pressure 126 mm[Hg] Normal (applies t o non-numeric results) 126 mm[Hg] [facility] Body weight Measured 64.864 kg Normal (applies to n on-numeric results) 64.864 kg [facility] Body mass index (BMI) [Ratio] 26.15 kg/m2 No rmal (applies to non-numeric results) 26.15 kg/m2 [facility] Body temperature 37.0 cade Normal (applies to non-numeric results) 37.0 cade [facility] Respiratory rate 18 min Normal (applies to non-numeric results) 18 min [facility] Body height 157.2768 cm Normal (applies to non-numeric res ults) 157.2768 cm [facility] Heart rate 111 min Normal (applies to non-numeric resul ts) 111 min [facility] Diastolic blood pressure 69 mm[Hg] Normal (applies to non-numeric results) 69 mm[Hg] [facility] Systolic blood pressure 107 mm[Hg] Normal (applies t o non-numeric results) 107 mm[Hg] [facility] Deprecated Oxygen saturation in Capillary blood by Oximetry 98 % Normal (applies to non-numeric results) 98 % [facility] Body weight Measured 65.317 kg Normal (applies to n on-numeric results) 65.317 kg [facility] Body mass index (BMI) [Ratio] 26.34 kg/m2 No rmal (applies to non-numeric results) 26.34 kg/m2 [facility] Diastolic blood pressure 70 mm[Hg] 70 mm[Hg] W1 ([facility]) Systolic blood pressure 114 mm[Hg] 114 mm[Hg] e 1 ([facility]) Body mass index (BMI) [Ratio] 25.615 kg/m2 25.6 15 kg/m2 [facility] ([facility]) Body height 63 [in_i] 63 [in_i] eCW1 ([facility]) Body weight 65.59 kg 65.59 kg [facility] ([facility]) Body weight 144.6 [lb_av] 144.6 [lb_av] eCW1 (Count includes the [facility]) Diastolic blood pressure 70 mm[Hg] 70 mm[Hg] eCW1 ([facility]) Systolic blood pressure 108 mm[Hg] 108 mm[Hg] e CW1 ([facility]) Body mass index (BMI) [Ratio] 23.914 kg/m2 23.9 14 kg/m2 [facility] ([facility]) Body height 63 [in_i] 63 [in_i] eCW1 ([facility]) Body weight 61.23 kg 61.23 kg eCW1 ([facility]) Body weight 135 [lb_av] 135 [lb_av] eCW1 ([facility]) Diastolic blood pressure 70 mm[Hg] 70 mm[Hg] eCW1 ([facility]) Systolic blood pressure 116 mm[Hg] 116 mm[Hg] e CW1 ([facility]) Body mass index (BMI) [Ratio] 22.284 kg/m2 22.2 84 kg/m2 eCW1 ([facility]) Body height 63 [in_i] 63 [in_i] eCW1 ([facility]) Body weight 125.8 [lb_av] 125.8 [lb_av] eCW1 (Count includes the [facility]) Oxygen saturation in Arterial blood by Pulse oximetry 99 % 99 % eCW1 ([facility]) Respiratory rate 18 /min 18 /min eCW1 ([facility]) Heart rate 94 /min 94 /min eCW1 ([facility]) Body temperature 98.2 [degF] 98.2 [degF] eCW1 ( [facility]) Body mass index (BMI) [Ratio] 20.37 kg/m2 20.37 kg/m2 eCW1 ([facility]) Body weight 126.2 [lb_av] 126.2 [lb_av] eCW1 ([facility]) Body height 66 [in_i] 66 [in_i] eCW1 ([facility]) Oxygen saturation in Arterial blood by Pulse oximetry 100 % 100 % eCW1 ([facility]) Respiratory rate 18 /min 18 /min eCW1 ([facility]) Heart rate 84 /min 84 /min eCW1 ([facility]) Body temperature 98 [degF] 98 [degF] eCW1 ([facility]) Body mass index (BMI) [Ratio] 19.33 kg/m2 19.33 kg/m2 eCW1 ([facility]) Body weight 119.8 [lb_av] 119.8 [lb_av] eCW1 ([facility]) Body height 66 [in_i] 66 [in_i] eCW1 ([facility]) Oxygen saturation in Arterial blood by Pulse oximetry 100 % 100 % eCW1 ([facility]) Respiratory rate 18 /min 18 /min eCW1 ([facility]) Heart rate 86 /min 86 /min eCW1 ([facility]) Body temperature 98.8 [degF] 98.8 [degF] eCW1 ( [facility]) Body mass index (BMI) [Ratio] 19.08 kg/m2 19.08 kg/m2 eCW1 ([facility]) Body weight 118.2 [lb_av] 118.2 [lb_av] eCW1 ([facility]) Body height 66 [in_i] 66 [in_i] eCW1 ([facility]) Deprecated Oxygen saturation in Capillary blood by Oximetry 99 % 99 % eCW1 ([facility]) Respiratory rate 16 /min 16 /min eCW1 ([facility]) Heart rate 99 /min 99 /min eCW1 ([facility]) Body temperature 99.2 [degF] 99.2 [degF] eCW1 ( [facility]) Body mass index (BMI) [Ratio] 18.57 kg/m2 18.57 kg/m2 eCW1 ([facility]) Body height 66 [in_us] 66 [in_us] eCW1 ([facility]) ID Date Data Source [id number] 05/26/2020 02:02:08 PM [facility] Name Value Range Interpretation Code Description Data Source(s) WEIGHT RECORDED 139 lb 139 lb [facility] ID Date Data Source [id number] 05/23/2020 11:34:31 AM [facility] Name Value Range Interpretation Code Description Data Source(s) WEIGHT RECORDED 137.2 lb 137.2 lb [facility] ID Date Data Source [id number] 01/29/2020 10:34:00 AM EDT [facility] Name Value Range Interpretation Code Description Data Source(s) WEIGHT 58.51 kilos 58.51 kilos [facility] HEIGHT 160.02 centimeters 160.02 centimeter [facility] WEIGHT 58.51 kilos 58.51 kilos [facility] HEIGHT 160.02 centimeters 160.02 centimeter [facility] ID Date Data Source [id number] 01/29/2020 10:34:00 AM EDT [facility] Name Value Range Interpretation Code Description Data Source(s) [facility] 160.02 [facility] WEIGHT 59.87 kilos 59.87 kilos [facility] HEIGHT 160.02 centimeters 160.02 centimeter [facility] Patient Treatment Plan of Care Planned Activity Planned Date Details Description Data Source (s) Citalopram 10 MG Oral Tablet [Celexa] 11/02/2019 12:00:00 AM EDT eCW1 ([facility]) Citalopram 10 MG Oral Tablet [Celexa] 11/02/2019 12:00:00 AM EDT eCW1 ([facility]) [id number] 05/15/2019 12:00:00 AM EST eCW1 ([facility])
--- OUTSIDE RECORDS SUMMARY | 2020-05-29 20:58 | CCD ---
Author Author [facility] Organization [facility] Address Unknown Phone Unavailable Care Team Providers Care Vocational Instructor Name Role Phone Shelly ANDRADE PA Unavailable [...] HUIZENGA, Tabitha SYLVESTER DO Unavailable Unavailable HUIZENGA, Tabihta SYLVESTER DO Unavailable Unavailable HUIZENGA, Tabitha SYLVESTER [...] Tabitha SYLVESTER DO Unavailable Unavailable Shad REED CAR LOADER Unavailable Unavailable DEREKShad BALLARD CAR LOADER Unavailable Unavailable DEREK, C OSCAR CAR LOADER Unavailable Unavailable DEREK, C OSCAR CAR LOADER Unavailable Unavailable DEREK, C OSCAR CAR LOADER Unavailable Unavailable DEREK, C OSCAR CAR LOADER Unavailable Unavailable DEREK, C OSCAR CAR LOADER Unavailable Unavailable DEREK, C OSCAR CAR LOADER Unavailable Unavailable DEREK, C OSCAR CAR LOADER Unavailable Unavailable DEREK, C OSCAR CAR LOADER Unavailable Unavailable DEREK, C OSCAR CAR LOADER Unavailable Unavailable DEREK, C OSCAR CAR LOADER Unavailable Unavailable DEREK, C OSCAR CAR LOADER Unavailable Unavailable DEREK, C OSCAR CAR LOADER Unavailable Unavailable DEREK, C OSCAR CAR LOADER Unavailable Unavailable DEREK, C OSCAR CAR LOADER Unavailable Unavailable DEREK, C OSCAR CAR LOADER Unavailable Unavailable DEREK, C OSCAR CAR LOADER Unavailable Unavailable DEREK, C OSCAR CAR LOADER Unavailable Unavailable DEREK, C OSCAR CAR LOADER Unavailable Unavailable DEREK, C OSCAR CAR LOADER Unavailable Unavailable DEREK, C OSCAR CAR LOADER Unavailable Unavailable DEREK, C OSCAR CAR LOADER Unavailable Unavailable WOLFENDEN, T ELPIDIO PA Unavailable [...] NOSOVITCH Galindo COLEMAN MD Unavailable Unavailable NOSOVITCH Galnido COLEMAN MD Unavailable Unavailable NOSOVITCH Galindo COLEMAN MD Unavailable Unavailable NOSOVITCH Galindo COLEMAN MD Unavailable Unavailable NOSOVITCH Galindo COLEMAN MD Unavailable Unavailable NOSOVITCH Galindo COLEMAN MD Unavailable Unavailable NOSOVITCH Galindo COLEMAN MD Unavailable Unavailable NOSOVITCH Galindo COLEMAN MD Unavailable Unavailable NOSOVITCH Galindo COLEMAN MD Unavailable Unavailable Charli, Antoine Mcdaniel SOLVENT PROCESS EXTRACTOR OPERATOR-C Unavailable Unavailabl e Charli, Antoine W Violeta SOLVENT PROCESS EXTRACTOR OPERATOR-C Unavailable Unavailabl e Charli, Antoine W Violeta SOLVENT PROCESS EXTRACTOR OPERATOR-C Unavailable Unavailabl e Charli, Antoine Mcdaniel SOLVENT PROCESS EXTRACTOR OPERATOR-C Unavailable Unavailabl e Charli, Antoine Mcdaniel SOLVENT PROCESS EXTRACTOR OPERATOR-C Unavailable Unavailabl e Charli, Antoine W Violeta SOLVENT PROCESS EXTRACTOR OPERATOR-C Unavailable Unavailabl e Charli, Antoine W Violeta SOLVENT PROCESS EXTRACTOR OPERATOR-C Unavailable Unavailabl e Charli, Antoine W Violeta SOLVENT PROCESS EXTRACTOR OPERATOR-C Unavailable Unavailabl e Charli, Antoine W Violeta SOLVENT PROCESS EXTRACTOR OPERATOR-C Unavailable Unavailabl e Charli, Antoine Handye SOLVENT PROCESS EXTRACTOR OPERATOR-C Unavailable Unavailabl e Charli, Antoine Handye SOLVENT PROCESS EXTRACTOR OPERATOR-C Unavailable Unavailabl e Charli, Antoine Mcdaniel SOLVENT PROCESS EXTRACTOR OPERATOR-C Unavailable Unavailabl e Charli, Antoine Mcdaniel SOLVENT PROCESS EXTRACTOR OPERATOR-C Unavailable Unavailabl e Charli, Antoine Mcdaniel SOLVENT PROCESS EXTRACTOR OPERATOR-C Unavailable Unavailabl e Charli, Kathleen W Violeta SOLVENT PROCESS EXTRACTOR OPERATOR-C Unavailable Unavailabl e Charli, Kathleen W Violeta SOLVENT PROCESS EXTRACTOR OPERATOR-C Unavailable Unavailabl e Charli, Kathleen Tata Mcdaniel SOLVENT PROCESS EXTRACTOR OPERATOR-C Unavailable Unavailabl e Charli, Kathleen W Violeta SOLVENT PROCESS EXTRACTOR OPERATOR-C Unavailable Unavailabl e Charli, Kathleen W Violeta SOLVENT PROCESS EXTRACTOR OPERATOR-C Unavailable Unavailabl e Charli, Kathleen W Violeta SOLVENT PROCESS EXTRACTOR OPERATOR-C Unavailable Unavailabl e Charli, Kathleen W Violeta SOLVENT PROCESS EXTRACTOR OPERATOR-C Unavailable Unavailabl e Charli, Regowen W Violeta SOLVENT PROCESS EXTRACTOR OPERATOR-C Unavailable Unavailabl e Charli, Regowen W Violeta SOLVENT PROCESS EXTRACTOR OPERATOR-C Unavailable Unavailabl e Charli, Regowen W Violeta SOLVENT PROCESS EXTRACTOR OPERATOR-C Unavailable Unavailabl e Charli, Regowen W Violeta SOLVENT PROCESS EXTRACTOR OPERATOR-C Unavailable Unavailabl e Charli, Regowen W Violeta SOLVENT PROCESS EXTRACTOR OPERATOR-C Unavailable Unavailabl e Charli, Reginah W Violeta SOLVENT PROCESS EXTRACTOR OPERATOR-C Unavailable Unavailabl e Charli, Reginah W Violeta SOLVENT PROCESS EXTRACTOR OPERATOR-C Unavailable Unavailabl e Charli, Reginah W Violeta SOLVENT PROCESS EXTRACTOR OPERATOR-C Unavailable Unavailabl e Charli, Reginah W Violeta SOLVENT PROCESS EXTRACTOR OPERATOR-C Unavailable Unavailabl e Charli, Reginah W Violeta SOLVENT PROCESS EXTRACTOR OPERATOR-C Unavailable Unavailabl e Charli, Reginah W Violeta SOLVENT PROCESS EXTRACTOR OPERATOR-C Unavailable Unavailabl e BLUM, W LENA PA Unavailable Unavailable BLUM, W LENA PA Unavailable Unavailable BLUM, W LENA PA Unavailable Unavailable BLUM, W LENA PA Unavailable Unavailable BLUM, W LENA PA Unavailable Unavailable BLUM, W LENA PA Unavailable Unavailable BLUM, W LENA PA Unavailable Unavailable BLUM, W LEAN PA Unavailable Unavailable BLUM, W LENA PA [...] PHILLIP VIGIL MD Unavailable Unavailable Sharyn, C Chet PA Unavailable [...] Unavailable Sharyn, C Chet PA Unavailable Unavailable [place], L Lexis SECURITIES UNDERWRITER Unavailable Unavailable [place], L Lexis SECURITIES UNDERWRITER Unavailable Unavailable [place], L Lexis SECURITIES UNDERWRITER Unavailable Unavailable [place], L Lexis SECURITIES UNDERWRITER Unavailable Unavailable [place], L Lexis SECURITIES UNDERWRITER Unavailable Unavailable [place], L Lexis SECURITIES UNDERWRITER Unavailable Unavailable [place], L Lexis SECURITIES UNDERWRITER Unavailable Unavailable [place], L Lexis SECURITIES UNDERWRITER Unavailable Unavailable [place], L Lexis SECURITIES UNDERWRITER Unavailable Unavailable [place], L Lexis SECURITIES UNDERWRITER Unavailable Unavailable [place], L Lexis SECURITIES UNDERWRITER Unavailable Unavailable [place], L Lexis SECURITIES UNDERWRITER Unavailable Unavailable [place], L Lexis SECURITIES UNDERWRITER Unavailable Unavailable [place], L Lexis SECURITIES UNDERWRITER Unavailable Unavailable [place], L Lexis SECURITIES UNDERWRITER Unavailable Unavailable [place], L Lexis SECURITIES UNDERWRITER Unavailable Unavailable [place], L Lexis SECURITIES UNDERWRITER Unavailable Unavailable [place], L Lexis SECURITIES UNDERWRITER Unavailable Unavailable [place], L Lexis SECURITIES UNDERWRITER Unavailable Unavailable [place], L Lexis SECURITIES UNDERWRITER Unavailable Unavailable [place], L Lexis SECURITIES UNDERWRITER Unavailable Unavailable [place], L Lexis SECURITIES UNDERWRITER Unavailable Unavailable [place], L Lexis SECURITIES UNDERWRITER Unavailable Unavailable [place], L Lexis SECURITIES UNDERWRITER Unavailable Unavailable [place], L Lexis SECURITIES UNDERWRITER Unavailable Unavailable [place], L Lexis SECURITIES UNDERWRITER Unavailable Unavailable [place], L Lexis SECURITIES UNDERWRITER Unavailable Unavailable [place], L Lexis SECURITIES UNDERWRITER Unavailable Unavailable [place], L Lexis SECURITIES UNDERWRITER Unavailable Unavailable [place], L Lexis SECURITIES UNDERWRITER Unavailable Unavailable [place], L Lexis SECURITIES UNDERWRITER Unavailable Unavailable [place], L Lexis SECURITIES UNDERWRITER Unavailable Unavailable [place], L Lexis SECURITIES UNDERWRITER Unavailable Unavailable IRASEMA, MARISA Unavailable Unavailable [place], [...] is protected by Article 27-F of the [facility] Public Health law. If you continue you may have access to information: Regarding HIV / AIDS; Provided by facilities licensed or operated by the [facility] Office of Mental Health; or Provided by the [facility] Office for People With Developmental Disabilities. If such information is present, then the following [facility] mandated warning applies: This information has been [...] law may result in a fine or [place] health care facility sentence or both. A general authorization for the release of medical or other information is NOT sufficient authorization for further disc losure. Allergies and Adverse Reactions Type Description Substance Reaction Status Data Source(s ) Chemical ADHESIVE TAPE ADHESIVE TAPE [facility] Drug Class PENICILLINS Penicillin Rash [facility] Drug allergy Penicillin G Sodium Penicillin G RASH Active e CW1 ([facility]) Family History Family Member Name Family Member Gender Family Member Status Date o f Status Description Data Source(s) Unknown Unknown Problem MEDENT ([facility]) Encounters Encounter Providers Location Date Indications Data Source(s ) Outpatient Attender: OSCAR REED NP 06/03/2020 12:00:0 0 AM [facility] Outpatient Attender: OSCAR REED NPReferrer: YVONNE URIARTE JR [id number] 05/26/2020 12:00:00 AM EST - 05/26/2020 01:43:06 PM EST Disruption of delivery [facility] Disruption of delivery wound Outpatient Attender: OSCAR REED NPReferrer: YVONNE URIARTE JR [id number] 05/20/2020 12:00:00 AM EST - 05/20/2020 01:58:41 PM EST Disruption of delivery [facility] Disruption of delivery wound Inpatient Attender: YVONNE CLAUDIO MD 05/09/2020 04:03:[address] [facility] Inpatient Attender: YVONNE CLAUDIO MDAdmitter: YVONNE CLAUDIO MD 05/09/2020 02:28:00 AM EST - 05/18/2020 02:21:00 PM EST CSECTION ABSCESS [facility] CSECTION ABSCESS Patient discharged. Inpatient Attender: YVONNE CLAUDIO MD 05/09/2020 02:28:00 AM E [facility] Unknown [address] [facility] [address] 05/09/2020 12:00:00 AM EST eCW1 ([facility]) Outpatient Attender: OSCAR REED NP 05/09/2020 12:00:0 0 AM EST [facility] Inpatient Attender: MARISA VILLALPANDO MD 04/19/2020 05:16:52 PM EST [facility] Inpatient Attender: MARISA GREYdmitter: MARISA VILLALPANDO 04/19/2020 04:09:00 PM EST - 05/05/2020 03:43:00 PM [place]YHY[place] [id number] [facility] POLYHYDRAMINO DD [id number] Patient discharged. Inpatient Attender: 0000[facility] 04/19/2020 04:09:00 PM E [facility] ( ESTOB) [facility] Est OB [address] [place] [address] 04/07/2020 12:00:00 AM EST eCW1 ([facility]) ( ESTOB) [facility] Est OB [address] [place] [address] 03/09/2020 12:00:00 AM EST eCW1 ([facility]) ( ESTOB) [facility] OB [address] [place] [address] 02/10/2020 12:00:00 AM EDT eCW1 ([facility]) Outpatient Attender: SHARATH MACKAY 02/04/2020 01:00:00 PM [facility] Outpatient Attender: Lexis COLUNGA 01/29/2020 10:30:00 AM [facility] Outpatient [facility] 01/29/2020 12:00:00 AM EDT eCW1 ([facility]) Outpatient Attender: ELPIDIO GARRISON 01/05/2020 09:30 :00 AM [facility] Emergency Attender: ELPIDIO BIRMINGHAMeferrer: Lexis COLUNGA EMERGENCY ROOM-ER 01/02/2020 11:45:00 AM EDT - 01/02/2020 12:22:00 PM [facility] Patient discharged. Outpatient Attender: JEROMY HOLLAND 12/22/2019 11:00:00 AM E DT [facility] Outpatient [facility] 12/16/2019 12:00:00 AM EDT eCW1 ([facility]) Outpatient Attender: Lexis Dang RNPReferrer: Lexis COLUNGA 12/15/2019 02:00:[address] [facility] Outpatient [facility] 12/15/2019 12:00:00 AM EDT eCW1 ([facility]) Outpatient [facility] 12/08/2019 12:00:00 AM EDT eCW1 ([facility]) Outpatient [facility] 12/01/2019 12:00:00 AM EDT eCW1 ([facility]) Outpatient Attender: Lexis Dang RNPReferrer: Tim COLUNGA EMERGENCY [facility] 11/30/2019 01:59:00 PM EDT - 11/30/2019 01:59:[address] [facility] Outpatient [facility] 11/30/2019 12:00:00 AM EDT eCW1 ([facility]) Outpatient [facility] 11/04/2019 12:00:00 AM EDT eCW1 ([facility]) Outpatient Attender: Lexis COLUNGA 11/02/2019 07:34:00 AM EDT [facility] 11/02/2019 12:00:00 AM EDT eCW1 ([facility]) Outpatient Attender: Violeta LAUP-Shad 05/15/2019 10:11:0 0 AM EST [facility] 0 12:00:00 AM EST eCW1 ([facility]) Emergency Attender: LEROY GARRISON EMERGENCY ROOM- ER 12/05/2017 09:49:00 AM EDT - 12/05/2017 11:31:[address] [facility] Outpatient Attender: JESSEE LEWISeferrer: HIGINIO CAZARES DO 10/11/2016 02:00:[address] [facility] Emergency Attender: Chet BIRMINGHAMeferrer: SHAHIDA CAZARES DO EMERGENCY ROOM-ER 05/08/2014 02:52:00 PM EST - 05/08/2014 04:45:00 PM [facility] Outpatient Attender: MUSA JOSEPH MDReferrer: HIGINIO Forte DO 12/14/2013 01:23:00 PM [facility] Outpatient Attender: MUSA JOSEPH MDReferrer: HIGINIO Forte DO 12/02/2013 11:39:00 AM [facility] Outpatient Attender: LENA Padillaerrer: HIGINIO ELENA DO 09/16/2013 02:51:00 PM [facility] Emergency Attender: LENA BIRMINGHAMeferrer: PERFECTO CAZARES DO EMERGENCY ROOM-ER 09/15/2013 08:51:00 PM EDT - 09/15/2013 10:55:00 PM [facility] Outpatient Attender: HIGINIO CAZARES DO 07/03/2013 09:05:00 AM [facility] Outpatient Attender: HIGINIO CAZARES DO 06/30/2013 10:00:00 AM [facility] Outpatient Attender: YVONNE CASANOVA MD 04/28/2013 12:18:00 PM [facility] Emergency Attender: YVONNE CASANOVA MD 04/28/20 13 01:05:00 AM [facility] - 04/28/2013 02:55:00 AM [facility] Outpatient Attender: LEROY GARRISON 12/09/2012 01: 23:00 PM [facility] Emergency Attender: LEROY GARRISON 12/09/2012 02:27:00 AM [facility] - 12/09/2012 03:30:00 AM [facility] Medications Medication Brand Name Start Date Product Form Dose Route Admi nistrative Instructions Pharmacy Instructions Status Indications Reaction Description Data Source(s) Citalopram 10 MG Oral Tablet [Celexa] Celexa 10 MG Celexa 10 MG 11/02/2019 12:00:00 AM EDT 1.0 {tablet} suspended Celexa 10 MG eCW1 ([facility]) Citalopram 10 MG Oral Tablet [Celexa] Celexa 10 MG Celexa 10 MG 11/02/2019 12:00:00 AM EDT 1.0 {tablet} active Ce tamir 10 MG eCW1 ([facility]) Citalopram 10 MG Oral Tablet [Celexa] Celexa 10 MG Celexa 10 MG 11/02/2019 12:00:00 AM EDT 1.0 {tablet} active Ce tamir 10 MG eCW1 ([facility]) Citalopram 10 MG Oral Tablet [Celexa] Celexa 10 MG Celexa 10 MG 11/02/2019 12:00:00 AM EDT 1.0 {tablet} active Ce tamir 10 MG eCW1 ([facility]) Citalopram 10 MG Oral Tablet [Celexa] Celexa 10 MG Celexa 10 MG 11/02/2019 12:00:00 AM EDT 1.0 {tablet} active Ce tamir 10 MG eCW1 ([facility]) Citalopram 10 MG Oral Tablet [Celexa] Celexa 10 MG Celexa 10 MG 11/02/2019 12:00:00 AM EDT 1.0 {tablet} active Ce tamir 10 MG eCW1 ([facility]) Citalopram 10 MG Oral Tablet [Celexa] Celexa 10 MG Celexa 10 MG 11/02/2019 12:00:00 AM EDT 1.0 {tablet} active Ce tamir 10 MG eCW1 ([facility]) Citalopram 10 MG Oral Tablet [Celexa] Celexa 10 MG Celexa 10 MG 11/02/2019 12:00:00 AM EDT 1.0 {tablet} active Ce tamir 10 MG eCW1 ([facility]) [id number]-Cnagfpern-JC [id number] UNK 05/15/2019 12:00:00 AM EST active 4 drops into Left ear eCW1 ([facility]) Insurance Providers Payer name Policy type / Coverage type Policy ID Covered libertarian ID Covered libertarian's relationship to bautista Policy Bautista Plan Information [facility] COMM[facility]AN [facility] [id number] SP [id number] [facility] COMM[facility] [id number] SP [id number] [facility] I [id number] Self [id number] [facility](MCAID) O [id number] S [id number] MEDICAID GME [id number] S [id number] [facility] HEA [id number] S [id number] MEDICAID M [id number] Self [id number] [facility] I [id number] Self [id number] UN FB [id number] S [id number] [facility] MEDICAID [id number] S [id number] MEDICAID [id number] [facility] MEDICAID [id number] S [id number] [facility] MEDICAID [id number] S [id number] MEDICAID [id number] S [id number] SELF PAY UNAVAILABLE S UNAVAILA BLE EMEDNY [id number] SP [id number] ANS-Medicaid [id number] ANSI-Medicaid [id number] [facility] MEDICAID [id number] S [id number] [facility] MEDICAID [id number] S [id number] [facility] MEDICAID [id number] S [id number] ANSI-Medicaid [id number] ANSI-Medicaid [id number] ANSI-Medicaid [id number] ANSI-Medicaid [id number] [facility] MEDICAID [id number] S [id number] MEDICAID M [id number] S [id number] MEDICAID [id number] SP [id number] HMO BLUE [id number] SP [id number] [employer] [id number] MEDICAID [id number] SP [id number] SELF PAY UNAVAILABLE UNAVAILA BLE [employer] [facility] (HMO) Self [facility] MEDICAID [facility] HMO [id number] S [id number] SELF PAY SP [id number] S [id number] Problems, Conditions, and Diagnoses Code Display Name Description Problem Type Effective Dates Data Source(s) Z34.80 care Supervision of other normal P kaitlin 02/09/2020 12:00:00 AM EDT eCW1 ([facility]) F43.20 Adjustment disorder Adjustment disorder Problem 0 12/22/2019 12:00:00 AM EDT eCW1 ([facility]) F41.8 [id number] Depression with anxiety Problem 11/02/2019 1 2:00:00 AM EDT eCW1 ([facility]) N92.6 [id number] Missed menses Problem 11/02/2019 12:00:00 AM EDT eCW1 ([facility]) O90.0 Disruption of delivery wound Di sruption of delivery wound Diagnosis 05/20/2020 02:13:33 PM [facility] Z3A.00 Weeks of gestation of not spec ified WEEKS OF GESTATION OF NOT SPECIFIED Diagnosis 02/04/2020 01:00:00 PM [facility] pital F43.20 Adjustment disorder, unspecified ADJUSTMENT DISO RDER, UNSPECIFIED Diagnosis 02/04/2020 01:00:00 PM [facility] O99.340 Other mental disorders complicating preg sheryl, unspecified trimester OTH MENTAL DISORDERS COMPLICATING , UNSP TRIMESTER Diagnosis 02/04/2020 01:00:00 PM [facility] Z3A.14 14 weeks gestation of 14 WEEKS GESTATI ON OF Diagnosis 01/29/2020 10:30:00 AM [facility] O99.342 Other mental disorders complicating preg sheryl, second trimester OTH MENTAL DISORDERS COMP , SECOND TRIMESTER Diagnosis 05/2019 10:30:00 AM [facility] Z79.899 Other java core developer (current) drug therapy O THER PENITENTIARY (CURRENT) DRUG THERAPY Diagnosis 01/02/2020 11:45:00 AM [facility] Z3A.09 9 weeks gestation of 9 WEEKS GESTATION OF [place] EGNANCY Diagnosis 01/02/2020 11:45:00 AM [facility] O26.851 Spotting complicating , first t rimester SPOTTING COMPLICATING , FIRST TRIMESTER Diagnosis 01/02/2020 11:45:00 AM [facility] O20.8 Other hemorrhage in early OTHER HEMORR LASHANDA IN EARLY Diagnosis 12/15/2019 02:00:00 PM [facility] R10.32 Left lower quadrant pain LEFT LOWER QUADRANT PAIN Diag nosis 12/15/2019 02:00:00 PM [facility] Z3A.01 Less than 8 weeks gestation of LESS THAN 8 WEEKS GESTATION OF Diagnosis 12/15/2019 02:00:00 PM [facility] Z32.01 Encounter for test, result pos itive ENCOUNTER FOR TEST, RESULT POSITIVE Diagnosis 11/30/2019 01:59:00 PM [facility] F41.8 Other specified anxiety disorders OTHER SPECIFIE D ANXIETY DISORDERS Diagnosis 11/30/2019 01:59:00 PM [facility] Z32.02 Encounter for test, result neg ative ENCOUNTER FOR TEST, RESULT NEGATIVE Diagnosis 11/02/2019 07:34:00 AM [facility] Z91.89 Other specified personal risk factors, n ot elsewhere classified OTH PERSONAL RISK FACTORS, NOT ELSEWHERE CLASSIFIE Diagnosis 020 07:34:00 AM [facility] N92.6 Irregular menstruation, unspecified IRREGULAR ME NSTRUATION, UNSPECIFIED Diagnosis 11/02/2019 07:34:00 AM [facility] H60.512 Acute actinic otitis externa, left ear A CUTE ACTINIC OTITIS EXTERNA, LEFT EAR Diagnosis 05/15/2019 10:11:00 AM [facility] l Results ID Date Data Source [id number] 05/26/2020 02:02:08 PM [facility] Hospital Name Value Range Interpretation Code Description Data Samantha rce(s) Supporting Document(s) Progress Note [facility] RFIHWz4qXwZYOcJh29/VTHmnQLBfp9PoHYcsMSz7CDcxTBTcW2VhTVB4qR1cYOC7FYtNYsWpMvLuXUY1 [facility] [file] ICAgICAgICAgICAgICAgICAgICAgICAgICAgICAgICAgICAgICAgICAgICAgICAgICAgICAgICAgICAg ICAgICAgICAgICAgICAgICAgICAgICAgICAgICAgIC AgICAgDQogICAgICAgICAgICAgICAgICAgICAgICAgICAgICAgICAgICAgICAgICAgICAgICAgICAgIC AgICAgICAgICAgICAgICAgICAgICAgICAgICAgICAgICAgICAgICAgICAgICAgDQogICAgICAgICAgIC AgICAgICAgICAgICAgICAgICAgICAgICAgICAgICAg ICAgICAgICAgICAgICAgICAgICAgICAgICAgICAgICAgICAgICAgICAgICAgICAgICAgICAgICAgDQog ICAgICAgICAgICAgICAgICAgICAgICAgICAgICAgICAgICAgICAgICAgICAgICAgICAgICAgICAgICAg ICAgICAgICAgICAgICAgICAgICAgICAgICAgICAgIC AgICAgICAgDQogICAgICAgICAgICAgICAgICAgICAgICAgICAgICAgICAgICAgICAgICAgICAgICAgIC AgICAgICAgICAgICAgICAgICAgICAgICAgICAgICAgICAgICAgICAgICAgICAgICAgDQogICAgICAgIC AgICAgICAgICAgICAgICAgICAgICAgICAgICAgICAg ICAgICAgICAgICAgICAgICAgICAgICAgICAgICAgICAgICAgICAgICAgICAgICAgICAgICAgICAgICAg DQogICAgICAgICAgICAgICAgICAgICAgICAgICAgICAgICAgICAgICAgICAgICAgICAgICAgICAgICAg ICAgICAgICAgICAgICAgICAgICAgICAgICAgICAgIC AgICAgICAgICAgDQogICAgICAgICAgICAgICAgICAgICAgICAgICAgICAgICAgICAgICAgICAgICAgIC AgICAgICAgICAgICAgICAgICAgICAgICAgICAgICAgICAgICAgICAgICAgICAgICAgICAgDQogICAgIC AgICAgICAgICAgICAgICAgICAgICAgICAgICAgICAg ICAgICAgICAgICAgICAgICAgICAgICAgICAgICAgICAgICAgICAgICAgICAgICAgICAgICAgICAgICAg ICAgDQogICAgICAgICAgICAgICAgICAgICAgICAgICAgICAgICAgICAgICAgICAgICAgICAgICAgICAg ICAgICAgICAgICAgICAgICAgICAgICAgICAgICAgIC DgGYXgNHSaXDQpCDLoYYg8K5spNKJiRYWlLN0iVYn5Sd4+GXvBKpNrFQS2frSjsH5ULU5qo6InMFvcVP Grj2UdLZe0GT7ACHMpXUxcHT6RRQiyzt1MCWBrALRulZSYy0urCdHfQFI9XBKjIyeqXE9ZAGXzZ8pdor QmJWWxUSMCMUwaZSLPSD0FByXsD4BeqK22CZXXNd1+ OLeearBtCkpLWtC4PCWjt1QcHMj7GK2VBLJfWcyuu3IaWwLnZRSBBWmvFY1RJHL9BLW2DJJtTx1LGQTq U882byHeCD3YFe2BVvFuIT9qpo7FWsVwPAHeHlrPAou3SZscBI7UkUHlTYkQhs0ozeXfruPHd6FwxkBp gDUSHO5giYYyqoIKFPrypIvqjakgIiLsJSCjJC5tEB 0xFRLiKADgLmSiVNQFAZ3TWAPkBRIcbYZyFMGpHXHGYM8LDWwnQCE3FZTxoiNgzUKoXCrhTH9JCNMwyy QgMjQgMCBSDQo+Wl7TCC7uy2QcGXljXtNaMC2fpt6SATcMCvNpW0A4fJVsW0V2XEmcCc4WPDKwJYQpEn BdZRCCJJmjZD5ENG0owrF0XI3PsUWdQJJoLYCrwGYp UKu6P37dlOYaIBkjIR3ZBPL+Caren+Zt9RGTCpTLHuLQJeKhTpYWGMAxPeE5GeL7GVg8HvR7CtHH14tTah oaBjSJjaRO4GET4eVGAgDIWGXV9MtBYoaZ9jkmMoNWNnKBPUUzDsC05wpKAlQOVrGXLxCWFkLo4KKWOm G1FkrmJbcRtkddRsVABhNJXSKA9LKFptkwDctMHmpM tpOI47wRfyEU6MSa2VVdIoPJ5xlb6AcOViYx3UBKBzNj9IZZEsDMZaBHJhZZV3VXShRhLbZTwaSAGvIU OqOPD0YNVnBBBiCD5QZlDhXGMrOcU7HFRpRLIfZTGwpj4KREQhYUJkMdObXWPsHDXmVNPvPMynGGMmYY GhFHX6EJUfFAXiJX4QMpOkMMYaYLVzXICiDZBkQLEd so5BUJKwZLXnEkXcSnFyLFDsEQWmLLewOETgENY6DSX0DXHsYMKwQZ0CYmVtWLYiODPpUJfsNGGiBKMx mf5JZGUiNPAbUYH6TyVbIOKrQPNqPOhfFNGpFVM0PGYjXTKyCRMaEK2UMqIsTMRmVGG0CAAoJIWiTTXg zs4SRRYnOYLnNwHiOoRzYXAuQZNqCGmgGXBeXAU0CG X4HQZpNJXwJM3XPbLsJZVjTVD7YOPxNGGwMVZxje6RIEVjVCFqMWG4LTHqTHJtZUHeHBsyVYGiBHO0Aw V1ROIfQYXpHV5WZpScQIJrTMe0IwUeZBMwOTBemm9FXPHdGQNtECOgVkKsMPWqCRHkTWmjIXMvLYD9Ga S7CTGfMECoVV4CCtEwMJFvKmSmEOUdJMWmIWZmcr8Q JUCqBLJeIQQ8ZtCmXAImPTDjQIewMOOgKFZhHJiyOPHiKBFmGH2KRaQaZIBkMxM9IMixGFOxJJAzoi8D DVDiNKJwZeGoCgRwWEHkWWOoGQrbHAPoPURnVLTtSRQbSWMwMU1HDjHlJDYcLpC6DVXnIEHxOHVhur2V yTYrwSodms6VBDpURy7IsKlwTPC2KItvAa0kaLYhMc PpKPXZBx3MpjRxEZKhRDKLAZhcCSXiXKK6M1J1EGA1IKAhYID7ADEyXEV0LjA0Q7XsI6FoCvF7LmN4Xy u3MFi3VDYqHNR8KTNjZPVdYXR0Cgd0TzYvBPBeBGP+FM4mIOl+Xr7Bj8XnpgP0fpKcFJltUsa8TO1WYZ WYL2KORo== ID Date Data Source [id number] 05/20/2020 02:14:20 PM EST [facility] Name Value Range Interpretation Code Description Data Samantha rce(s) Supporting Document(s) Progress Note [facility] CMKXTi4eHcCKDzXz55/FGUcqWNZez1RsWEazHZg0SOrkENYcB9TkICT4fA9zYXO2UZdBWzQlZoHkERGh lbm HfDiuYZsIxEFTgWcuTMhYrIFicBxbrjNCbQX2IqVM3YBHxC49cSHLxBXSzJ0MlIVVaHrS+Va8OCQBkxO TpUA7XVedW2K14icjFYg+/QL/LENLpW4MJZvS6RqUbXQ/kRIllWVIdBHX/PKgC8zT6UQ0pS/Ale/Yjd59 [file] ArSZ7GEz8VSmE3MRT7lEVqYm4PAsQiUTuNRhDaXB9DBEx= ID Date Data Source [id number] 05/17/2020 09:03:33 AM EST [facility] Name Value Range Interpretation Code Description Data Samantha rce(s) Supporting Document(s) SODIUM 141 mmol/L (136-145) [facility] POTASSIUM 4.3 mmol/L (3.6-5.2) [facility] CHLORIDE 107 mmol/L (100-108) [facility] CO2 27 mmol/L (22-31) [facility] ANION GAP 7 mmol/L (7-16) [facility] UREA NITROGEN 14 mg/dL (7-24) [facility] CREATININE 0.90 mg/dL (0.60-1.00) [facility] BUN/CREAT RATIO 15.6 RATIO (10.0-20.0) [facility] GLUCOSE 80 mg/dL (70-99) [facility] CALCIUM 9.3 mg/dL (8.4-10.2) [facility] GFR >60 ml/min/1.73m2 (>59) [facility] GFR ( AMER) >60 ml/min/1.73m2 (>59) [facility] GFR INTERPRETATION [facility] --NORMAL KIDNEY FUNCTION OR MILD DISEASE - GFR >OR= 60CHRONIC KIDNEY DISEASE - GFR 15 - 59RENAL FAILURE - GFR <15 Est. GFR calculation based on the MDRDstudy equation, which assumes a steadystate for creatinine. Est. GFR should notbe used for medication dosing. ID Date Data Source [id number] 05/17/2020 08:37:45 AM EST [facility] Name Value Range Interpretation Code Description Data Samantha rce(s) Supporting Document(s) WBC 8.7 10*3/uL (4.1-11.0) [facility] [place] RBC 3.04 10*6/uL (4.00-5.40) L [facility] HGB 8.9 g/dL (12.0-16.0) L [facility] HCT 27.5 % (36.0-47.0) L [facility] MCV 90.4 fL (80.0-95.0) [facility] MCH 29.2 pg (27.0-32.0) [facility] MCHC 32.2 g/dL (32.0-36.0) [facility] RDW 15.1 % (10.5-14.5) H [facility] PLT 551 10*3/uL (150-450) H [facility] MPV 6.1 fL (7.1-10.7) L [facility] NEUT % 54.9 % (35.0-75.0) [facility] LYMPH % 30.0 % (16.0-52.0) [facility] MONO % 8.5 % (0.0-8.0) H [facility] EOS % 5.3 % (0.0-5.0) H [facility] BASO % 1.3 % (0.0-4.0) [facility] NEUT # 4.8 10*3/uL (1.8-7.7) [facility] LYMPH # 2.6 10*3/uL (1.2-4.8) [facility] MONO # 0.7 10*3/uL (0.0-0.8) [facility] Eosinophils [#/volume] in Blood by Automated count 0.5 10*3/uL (0.0-0 .5) [facility] BASO # 0.1 10*3/uL (0.0-0.2) [facility] ID Date Data Source [id number] 05/15/2020 06:44:00 PM [facility] DATE OF EXAM: 05/15/2020T PELVIS [...] size. K3End of diagnostic report for accession: [id number] Interpreted: Mateo Childress MDTranscribed: 05/15/2020 06:29 PMSigned: 05/15/2020 06:44 PM Mateo Childress MD [facility] ACC # [id number] BILL # [id number] Name Value Range Interpretation Code Description Data [facility](s) Supporting Document(s) ID Date Data Source [id number] 05/17/2020 10:05:00 AM [facility] DATE OF EXAM: 1DRAINAGE CATHETE R REPLACEMENT INDICATION: Leakage around existing catheter. PROCEDURE: The existing catheter was occluded leading to drainage along the catheter. This was removed over guidewire and exchanged for a 12-Wallisian Van Ricardo catheter with larger side holes, hopefully minimizing the chance of catheter occlusion. Limited contrast injection confirmed adequate position within the abscess. IMPRESSION: Catheter replacement. Fluoroscopy time: 45 seconds Number fluoroscopic images saved: 2 Professional interpretation performed at [facility] End of diagnostic report for accession: [id number] Interpreted: Marisa Kruse MDTranscribed: 05/17/2020 10:03 AMSigned: 05/17/2020 10:05 AM Marisa Kruse MD [facility] ACC # [id number] BILL # [id number] Name Value Range Interpretation Code Description Data Samantha rce(s) Supporting Document(s) ID Date Data Source [id number] 05/13/2020 08:02:09 AM EST [facility] Name Value Range Interpretation Code Description Data Samantha rce(s) Supporting Document(s) CREATININE 0.55 mg/dL (0.60-1.00) L [facility] GFR >60 ml/min/1.73m2 (>59) [facility] GFR ( AMER) >60 ml/min/1.73m2 (>59) [facility] GFR INTERPRETATION [facility] --NORMAL KIDNEY FUNCTION OR MILD DISEASE - GFR >OR= 60CHRONIC KIDNEY DISEASE - GFR 15 - 59RENAL FAILURE - GFR <15 Est. GFR calculation based on the MDRDstudy equation, which assumes a steadystate for creatinine. Est. GFR should notbe used for medication dosing. ID Date Data Source [id number] 05/13/2020 09:44:59 AM EST [facility] Name Value Range Interpretation Code Description Data [facility] Document(s) SPECIMEN DESCRIPTION [facility] [place] STAPH SCREEN RESULTS (ONEGSA) [facility] COM[facility] GENE TO DETECT STAPH AUREUS. (2) RT-P CR WAS PERFORMED FOR THE mecA AND SCCmec GENES TO DETECT METHICILLIN RESISTANCE IN STAPH AUREUS. ID Date Data Source [id number] 05/12/2020 09:50:00 AM EST [facility] [...] products of conception. Professional interpretation performed at [facility] .End of diagnostic report for accession: [id number] Interpreted: Christopher Restrepo MDTranscribed: 05/12/2020 09:33 AMSigned: 05/12/2020 09:50 AM Christopher Restrepo MD [facility] # [id number] BILL # [id number] Name Value Range Interpretation Code Description Data Samantha rce(s) Supporting Document(s) ID Date Data Source [id number] 05/12/2020 07:33:34 AM EST [facility] Name Value Range Interpretation Code Description Data Samantha rce(s) Supporting Document(s) VANCOMYCIN TROUGH 11.0 ug/mL (10.0-20.0) [facility] ID Date Data Source [id number] 05/12/2020 07:33:34 AM EST [facility] Name Value Range Interpretation Code Description Data Samantha rce(s) Supporting Document(s) CREATININE 0.65 mg/dL (0.60-1.00) [facility] GFR >60 ml/min/1.73m2 (>59) [facility] GFR ( AMER) >60 ml/min/1.73m2 (>59) [facility] GFR INTERPRETATION [facility] --NORMAL KIDNEY FUNCTION OR MILD DISEASE - GFR >OR= 60CHRONIC KIDNEY DISEASE - GFR 15 - 59RENAL FAILURE - GFR <15 Est. GFR calculation based on the MDRDstudy equation, which assumes a steadystate for creatinine. Est. GFR should notbe used for medication dosing. ID Date Data Source [id number] 05/11/2020 07:30:56 AM EST [facility] Name Value Range Interpretation Code Description Data Samantha rce(s) Supporting Document(s) CREATININE 0.56 mg/dL (0.60-1.00) L [facility] GFR >60 ml/min/1.73m2 (>59) [facility] GFR ( AMER) >60 ml/min/1.73m2 (>59) [facility] GFR INTERPRETATION [facility] --NORMAL KIDNEY FUNCTION OR MILD DISEASE - GFR >OR= 60CHRONIC KIDNEY DISEASE - GFR 15 - 59RENAL FAILURE - GFR <15 Est. GFR calculation based on the MDRDstudy equation, which assumes a steadystate for creatinine. Est. GFR should notbe used for medication dosing. ID Date Data Source [id number] 05/11/2020 07:30:56 AM EST [facility] [place] Name Value Range Interpretation Code Description Data Samantha rce(s) Supporting Document(s) VANCOMYCIN RANDOM 11.4 ug/mL [facility] THERAPEUTIC RANGE IS ONLY AVAILABLE FOR PEAK AND TROUGH SPECIMENS. RANDOM LEVEL RESULTS MUST BE INTERPRETED BY THE PHYSICIAN. ID Date Data Source [id number] 05/10/2020 08:00:06 AM EST [facility] [place] Name Value Range Interpretation Code Description Data Samantha rce(s) Supporting Document(s) VANCOMYCIN TROUGH 8.5 ug/mL (10.0-20.0) L [facility] ID Date Data Source [id number] 05/10/2020 08:00:06 AM EST [facility] Name Value Range Interpretation Code Description Data Samantha rce(s) Supporting Document(s) CREATININE 0.56 mg/dL (0.60-1.00) L [facility] GFR >60 ml/min/1.73m2 (>59) [facility] GFR ( AMER) >60 ml/min/1.73m2 (>59) [facility] GFR INTERPRETATION [facility] --NORMAL KIDNEY FUNCTION OR MILD DISEASE - GFR >OR= 60CHRONIC KIDNEY DISEASE - GFR 15 - 59RENAL FAILURE - GFR <15 Est. GFR calculation based on the MDRDstudy equation, which assumes a steadystate for creatinine. Est. GFR should notbe used for medication dosing. ID Date Data Source [id number] 05/10/2020 07:32:25 AM EST [facility] Name Value Range Interpretation Code Description Data Samantha rce(s) Supporting Document(s) WBC 10.0 10*3/uL (4.1-11.0) [facility] RBC 2.47 10*6/uL (4.00-5.40) L [facility] HGB 7.6 g/dL (12.0-16.0) L [facility] HCT 22.7 % (36.0-47.0) L [facility] MCV 91.8 fL (80.0-95.0) [facility] MCH 30.6 pg (27.0-32.0) [facility] MCHC 33.3 g/dL (32.0-36.0) [facility] RDW 14.9 % (10.5-14.5) H [facility] PLT 532 10*3/uL (150-450) H [facility] MPV 6.5 fL (7.1-10.7) L [facility] ID Date Data Source [id number] 05/09/2020 04:03:00 PM EST [facility] DATE OF EXAM: 05/09/2020T GUIDED [...] a period of 30 minutes. IMPRESSION: 12 Wallisian pigtail drainage of pelvic abscess Suggest followup CT and/or tube study when drainage stops. Professional interpretation performed at [facility] [phone] of diagnostic report for accession: [id number] Interpreted: Gamal Marrero MDTranscribed: 05/09/2020 03:59 PMSigned: 05/09/2020 04:03 PM Gamal Marrero MD ------ [facility] # [id number] [facility] # [id number] Name Value Range Interpretation Code Description Data Samantha rce(s) Supporting Document(s) ID Date Data Source [id number] 05/12/2020 08:00:53 AM EST [facility] SPECIMEN DESCRIPTION SITE RELUI ABCESSSPECIAL REQUESTS NONECULTURE RESULTS NO ANAEROBES ISOLATEDREPORT STATUS FINAL 05/12/2020 Name Value Range Interpretation Code Description Data Samantha rce(s) Supporting Document(s) ID Date Data Source [id number] 05/11/2020 08:09:16 AM EST [facility] SPECIMEN DESCRIPTION SITE RELUI ABSCESSSPECIAL REQUESTS NONEGRAM STAIN RARE (<1/LPF) WHITE BLOOD CELLS NO BACTERIACULTURE RESULTS NO GROWTHREPORT STATUS FINAL 05/11/2020 Name Value Range Interpretation Code Description Data Samantha rce(s) Supporting Document(s) ID Date Data Source [id number] 05/09/2020 06:46:22 PM EST [facility] SPECIMEN DESCRIPTION SITE REL ABCESSSPECIAL REQUESTS NONEGRAM STAIN NOT DONECULTURE RESULTS TEST(S) PROCESSED UNDER NEW ENTRY PLEASE SEE [facility] [id number]. [id number] STATUS FINAL 05/09/2020 Name Value Range Interpretation Code Description Data Samantha rce(s) Supporting Document(s) ID Date Data Source [id number] 05/09/2020 04:43:28 AM EST [facility] Name Value Range Interpretation Code Description Data Samantha rce(s) Supporting Document(s) APTT 29.0 s (22.0-34.3) [facility] Robby Henriquez ID Date Data Source [id number] 05/09/2020 04:43:28 AM EST [facility] Name Value Range Interpretation Code Description Data Samantha rce(s) Supporting Document(s) PT 11.4 s (9.2-11.9) [facility] INR 1.09 [facility] SUGGESTED THERAPEUTIC RANGES USING INR F ORSTABILIZED ANTICOAGULATED PATIENTS:STANDARD DOSE THERAPY INR 2.0-3.0 DVT, PE, PREVENT DVT OR EMBOLISMHIGH DOSE THERAPY INR 2.5-3.5 PREVENT EMBOLISM FROM MECHANICAL HEART VALVE ID Date Data Source [id number] 05/09/2020 04:53:39 AM EST [facility] Name Value Range Interpretation Code Description Data Samantha rce(s) Supporting Document(s) URINE WBC (0-5) [facility] URINE RBC (0-2) [facility] EPITHELIAL CELLS 1+ [HPF] [facility] ID Date Data Source [id number] 05/09/2020 04:41:23 AM EST [facility] Name Value Range Interpretation Code Description Data Samantha rce(s) Supporting Document(s) SODIUM 142 mmol/L (136-145) [facility] [place] POTASSIUM 4.0 mmol/L (3.6-5.2) [facility] CHLORIDE 108 mmol/L (100-108) [facility] CO2 25 mmol/L (22-31) [facility] ANION GAP 9 mmol/L (7-16) [facility] UREA NITROGEN 7 mg/dL (7-24) [facility] CREATININE 0.59 mg/dL (0.60-1.00) L [facility] BUN/CREAT RATIO 11.9 RATIO (10.0-20.0) [facility] GLUCOSE 93 mg/dL (70-99) [facility] CALCIUM 8.4 mg/dL (8.4-10.2) [facility] TOTAL PROTEIN 5.4 g/dL (6.4-8.2) L [facility] ALBUMIN 2.2 g/dL (3.5-4.6) L [facility] GLOBULIN 3.2 g/dL (2.7-4.3) [facility] ALB/GLOB RATIO 0.7 RATIO [facility] ALKALINE PHOSPHATASE 105 U/L (45-117) [facility] BILIRUBIN,TOTAL 0.2 mg/dL (0.0-1.0) [facility] PLEASE NOTE:Total bilirubin results may be falselyelevated in patients taking Eltrombopag. AST (SGOT) 11 U/L (11-39) [facility] ALT (SGPT) 15 U/L (12-78) [facility] GFR >60 ml/min/1.73m2 (>59) [facility] GFR ( AMER) >60 ml/min/1.73m2 (>59) [facility] GFR INTERPRETATION [facility] --NORMAL KIDNEY FUNCTION OR MILD DISEASE - GFR >OR= 60CHRONIC KIDNEY DISEASE - GFR 15 - 59RENAL FAILURE - GFR <15 Est. GFR calculation based on the MDRDstudy equation, which assumes a steadystate for creatinine. Est. GFR should notbe used for medication dosing. ID Date Data Source [id number] 05/09/2020 04:07:30 AM EST [facility] Name Value Range Interpretation Code Description Data Samantha rce(s) Supporting Document(s) COLOR [facility] APPEARANCE [facility] SPEC GRAV URINE 1.039 (1.003-1.030) H [facility] PH URINE 7.5 (5.0-7.5) [facility] LEUK ESTERASE (NEG) [facility] CRITERIA FOR CULTURE NOT MET.CULTURE CAN BE ADDED WITHIN 36 HOURS OFCOLLECTION. NITRITE URINE (NEG) [facility] PROTEIN URINE (NEG) [facility] GLUCOSE URINE (NEG) [facility] KETONE URINE (NEG) [facility] UROBILINOGEN 1.0 mg/dL (0-1.0) [facility] BILIRUBIN URINE (NEG) [facility] BLOOD/HGB URINE (NEG) A [facility] ID Date Data Source [id number] 05/09/2020 04:03:20 AM EST [facility] Name Value Range Interpretation Code Description Data Samantha rce(s) Supporting Document(s) WBC 11.4 10*3/uL (4.1-11.0) H [facility] RBC 2.64 10*6/uL (4.00-5.40) L [facility] HGB 7.8 g/dL (12.0-16.0) L [facility] HCT 24.1 % (36.0-47.0) L [facility] MCV 91.6 fL (80.0-95.0) [facility] MCH 29.6 pg (27.0-32.0) [facility] MCHC 32.3 g/dL (32.0-36.0) [facility] RDW 14.8 % (10.5-14.5) H [facility] PLT 468 10*3/uL (150-450) H [facility] MPV 6.3 fL (7.1-10.7) L [facility] ID Date Data Source [id number] 05/09/2020 12:13:00 AM EST [facility] Name Value Range Interpretation Code Description Data Samantha rce(s) Supporting Document(s) SARS coronavirus 2 RNA [Presence] in Res piratory specimen by ARRON with probe detection NEGATIVE [facility] This lab was ordered by [facility] a nd reported by [facility]. ID Date Data Source [id number] 05/02/2020 04:06:06 PM EST [facility] Name Value Range Interpretation Code Description Data Samantha rce(s) Supporting Document(s) WBC 10.4 10*3/uL (4.1-11.0) [facility] RBC 2.53 10*6/uL (4.00-5.40) L [facility] HGB 7.8 g/dL (12.0-16.0) L [facility] HCT 23.2 % (36.0-47.0) L [facility] MCV 91.6 fL (80.0-95.0) [facility] MCH 31.1 pg (27.0-32.0) [facility] MCHC 33.9 g/dL (32.0-36.0) [facility] RDW 13.7 % (10.5-14.5) [facility] PLT 242 10*3/uL (150-450) [facility] MPV 6.9 fL (7.1-10.7) L [facility] ID Date Data Source [id number] 05/03/2020 04:48:51 PM EST [facility] [place] [address] [id number]# SURGICAL PATHOLOGY REPORTPatient Name:BRAD VERAGLADIS Garcia:1995Received:05/02/2020ccession #:[id number] [...] By Erlinda Gonzalez M.D. jzwPathology Associates [place], [place] [address]Technical component performed at [facility], Histopathology, [address] [place] [address], [phone].Reported at [facility], [address] [place] [address], [facility].This report may include immunohistochemical or in-situ hybridizationresults. Testing was developed and the performance characteristicsdetermined by [facility], as required byCLIA '88. The FDA has determined that approval for specific use is notnecessary for clinical use. The quality of Hematoxylin and Eosin stainsand as applicable, for all immunohistochemical and/or special stains,including positive and negative controls, were reviewed and consideredappropriate.ICD codes: O43.706JNT6 codes: A: 92988C Name Value Range Interpretation Code Description Data Samantha rce(s) Supporting Document(s) ID Date Data Source [id number] 04/30/2020 05:55:25 AM EST [facility] Name Value Range Interpretation Code Description Data [facility] Supporting Document(s) WBC 11.5 10*3/uL (4.1-11.0) H [facility] RBC 3.17 10*6/uL (4.00-5.40) L [facility] HGB 9.9 g/dL (12.0-16.0) L [facility] HCT 28.8 % (36.0-47.0) L [facility] MCV 90.8 fL (80.0-95.0) [facility] MCH 31.2 pg (27.0-32.0) [facility] MCHC 34.3 g/dL (32.0-36.0) [facility] RDW 13.3 % (10.5-14.5) [facility] PLT 292 10*3/uL (150-450) [facility] MPV 7.5 fL (7.1-10.7) [facility] ID Date Data Source [id number] 04/29/2020 05:04:45 AM EST [facility] Name Value Range Interpretation Code Description Data Samantha rce(s) Supporting Document(s) MAGNESIUM 5.4 mg/dL (1.7-2.4) HH [facility] RESULT(S) [place] [id number] AT 0503 ID Date Data Source [id number] 04/28/2020 09:48:25 AM EST [facility] Name Value Range Interpretation Code Description Data Samantha rce(s) Supporting Document(s) WBC 10.6 10*3/uL (4.1-11.0) [facility] RBC 3.46 10*6/uL (4.00-5.40) L [facility] HGB 10.7 g/dL (12.0-16.0) L [facility] HCT 31.8 % (36.0-47.0) L [facility] MCV 91.9 fL (80.0-95.0) [facility] MCH 31.1 pg (27.0-32.0) [facility] MCHC 33.8 g/dL (32.0-36.0) [facility] RDW 13.3 % (10.5-14.5) [facility] PLT 292 10*3/uL (150-450) [facility] MPV 7.5 fL (7.1-10.7) [facility] ID Date Data Source [id number] 04/28/2020 08:05:44 AM EST [facility] SPEC EXP DATE 1PATI ENT ABO/Rh O POSITIVEANTIBODY SCREEN NEGATIVETESTING SITE PERFORMED AT [address] [place], [place] [address]OOD BANK COMMENT BLOOD TYPE CONFIRMED. Name Value Range Interpretation Code Description Data Samantha rce(s) Supporting Document(s) TYPE AND SCREEN [facility] PATIENT ABO/Rh O POSITIVE ID Date Data Source [id number] 04/26/2020 06:55:16 AM EST [facility] Name Value Range Interpretation Code Description Data Samantha rce(s) Supporting Document(s) WBC 11.2 10*3/uL (4.1-11.0) H [facility] RBC 3.50 10*6/uL (4.00-5.40) L [facility] HGB 10.8 g/dL (12.0-16.0) L [facility] HCT 32.0 % (36.0-47.0) L [facility] MCV 91.3 fL (80.0-95.0) [facility] MCH 30.8 pg (27.0-32.0) [facility] MCHC 33.7 g/dL (32.0-36.0) [facility] RDW 13.0 % (10.5-14.5) [facility] PLT 312 10*3/uL (150-450) [facility] MPV 7.3 fL (7.1-10.7) [facility] NEUT % 67.5 % (35.0-75.0) [facility] LYMPH % 21.8 % (16.0-52.0) [facility] MONO % 7.0 % (0.0-8.0) [facility] EOS % 3.5 % (0.0-5.0) [facility] BASO % 0.2 % (0.0-4.0) [facility] NEUT # 7.5 10*3/uL (1.8-7.7) [facility] LYMPH # 2.4 10*3/uL (1.2-4.8) [facility] MONO # 0.8 10*3/uL (0.0-0.8) [facility] Eosinophils [#/volume] in Blood by Automated count 0.4 10*3/uL (0.0-0 .5) [facility] BASO # 0.0 10*3/uL (0.0-0.2) [facility] ID Date Data Source [id number] 04/25/2020 11:59:00 AM EST [facility] DATE OF EXAM: 04/25/2020Limited OBSTETRI [...] ratio is 2.19. Professional interpretation performed by [facility] at [facility] End of diagnostic report for accession: [id number] Interpreted: John Mcgraw MDTranscribed: 04/25/2020 11:55 AMSigned: 04/25/2020 11:59 AM John Mcgraw MD [facility] # [id number] BILL # [id number] Name Value Range Interpretation Code Description Data Samantha rce(s) Supporting Document(s) ID Date Data Source [id number] 04/25/2020 11:59:00 AM EST [facility] DATE OF EXAM: 04/25/2020Limited OBSTETRI [...] ratio is 2.19. Professional interpretation performed by [facility] Medical Imaging at [facility] End of diagnostic report for accession: [id number] Interpreted: John Mcgraw MDTranscribed: 04/25/2020 11:55 AMSigned: 04/25/2020 11:59 AM John Mcgraw MD [facility] ACC # [id number] BILL # [id number] Name Value Range Interpretation Code Description Data [facility](s) Supporting Document(s) ID Date Data Source [id number] 04/24/2020 01:38:28 AM EST [facility] SPEC EXP DATE 04/27/2020PATI ENT ABO/Rh O POSITIVEANTIBODY SCREEN NEGATIVETESTING SITE PERFORMED AT [address] [place] [address] BANK COMMENT BLOOD TYPE CONFIRMED. Name Value Range Interpretation Code Description Data [facility](s) Supporting Document(s) TYPE AND SCREEN [facility] PATIENT ABO/Rh O POSITIVE ID Date Data Source [id number] 04/22/2020 04:29:00 PM EST [facility] DATE OF EXAM: 04/22/2020EXAM: US B iophys Profile WO Stress Testing INDICATION: ABRUPTION Total score 6 /8. Amniotic fluid index 7.2 cm, oligohydramnios. 20 minutes of imaging. heart rate 148 bpm. Estimated gestational age 25 weeks zero days IMPRESSION: 6/8 Biophysical Profile. Oligohydramnios. Professional interpretation performed at [facility] .End of diagnostic report for accession: [id number] Interpreted: Mateo Mcgraw MDTranscribed: 04/22/2020 04:26 PMSigned: 04/22/2020 04:29 PM Mateo Mcgraw MD [facility] ACC # [id number] BILL # [id number] Name Value Range Interpretation Code Description Data Samantha rce(s) Supporting Document(s) ID Date Data Source [id number] 04/21/2020 09:00:21 PM EST [facility] PATIENT ABO/Rh O POSITIVEBLO OD BANK COMMENT BLOOD TYPE CONFIRMED. Name Value Range Interpretation Code Description Data Samantha rce(s) Supporting Document(s) ID Date Data Source [id number] 04/21/2020 05:09:41 AM EST [facility] Name Value Range Interpretation Code Description Data Samantha rce(s) Supporting Document(s) MAGNESIUM 5.1 mg/dL (1.7-2.4) [facility] CONSISTENT WITH PREVIOUS RESULTS ID Date Data Source [id number] 04/21/2020 05:09:41 AM EST [facility] Name Value Range Interpretation Code Description Data Samantha rce(s) Supporting Document(s) SODIUM 140 mmol/L (136-145) [facility] POTASSIUM 3.8 mmol/L (3.6-5.2) [facility] CHLORIDE 108 mmol/L (100-108) [facility] CO2 23 mmol/L (22-31) [facility] ANION GAP 9 mmol/L (7-16) [facility] UREA NITROGEN 4 mg/dL (7-24) L [facility] CREATININE 0.66 mg/dL (0.60-1.00) [facility] BUN/CREAT RATIO 6.1 RATIO (10.0-20.0) L [facility] GLUCOSE 114 mg/dL (70-99) H [facility] CALCIUM 7.0 mg/dL (8.4-10.2) L [facility] TOTAL PROTEIN 5.4 g/dL (6.4-8.2) L [facility] ALBUMIN 2.5 g/dL (3.5-4.6) L [facility] GLOBULIN 2.9 g/dL (2.7-4.3) [facility] ALB/GLOB RATIO 0.9 RATIO [facility] ALKALINE PHOSPHATASE 108 U/L (45-117) [facility] BILIRUBIN,TOTAL 0.2 mg/dL (0.0-1.0) [facility] PLEASE NOTE:Total bilirubin results may be falselyelevated in patients taking Eltrombopag. AST (SGOT) 8 U/L (11-39) L [facility] ALT (SGPT) 14 U/L (12-78) [facility] GFR >60 ml/min/1.73m2 (>59) [facility] GFR ( AMER) >60 ml/min/1.73m2 (>59) [facility] GFR INTERPRETATION [facility] --NORMAL KIDNEY FUNCTION OR MILD DISEASE - GFR >OR= 60CHRONIC KIDNEY DISEASE - GFR 15 - 59RENAL FAILURE - GFR <15 Est. GFR calculation based on the MDRDstudy equation, which assumes a steadystate for creatinine. Est. GFR should notbe used for medication dosing. ID Date Data Source [id number] 04/21/2020 04:43:14 AM EST [facility] Name Value Range Interpretation Code Description Data Samantha rce(s) Supporting Document(s) WBC 9.4 10*3/uL (4.1-11.0) [facility] RBC 2.92 10*6/uL (4.00-5.40) L [facility] HGB 8.9 g/dL (12.0-16.0) L [facility] HCT 26.5 % (36.0-47.0) L [facility] MCV 91.0 fL (80.0-95.0) [facility] MCH 30.5 pg (27.0-32.0) [facility] MCHC 33.5 g/dL (32.0-36.0) [facility] RDW 13.0 % (10.5-14.5) [facility] PLT 319 10*3/uL (150-450) [facility] MPV 7.0 fL (7.1-10.7) L [facility] ID Date Data Source [id number] 04/20/2020 03:30:13 PM EST [facility] Name Value Range Interpretation Code Description Data Samantha rce(s) Supporting Document(s) SODIUM 139 mmol/L (136-145) [facility] POTASSIUM 4.1 mmol/L (3.6-5.2) [facility] CHLORIDE 107 mmol/L (100-108) [facility] CO2 23 mmol/L (22-31) [facility] ANION GAP 9 mmol/L (7-16) [facility] UREA NITROGEN 5 mg/dL (7-24) L [facility] CREATININE 0.68 mg/dL (0.60-1.00) [facility] BUN/CREAT RATIO 7.4 RATIO (10.0-20.0) L [facility] GLUCOSE 112 mg/dL (70-99) H [facility] CALCIUM 7.1 mg/dL (8.4-10.2) L [facility] TOTAL PROTEIN 5.7 g/dL (6.4-8.2) L [facility] ALBUMIN 2.7 g/dL (3.5-4.6) L [facility] GLOBULIN 3.0 g/dL (2.7-4.3) [facility] ALB/GLOB RATIO 0.9 RATIO [facility] ALKALINE PHOSPHATASE 123 U/L (45-117) H [facility] BILIRUBIN,TOTAL 0.2 mg/dL (0.0-1.0) [facility] PLEASE NOTE:Total bilirubin results may be falselyelevated in patients taking Eltrombopag. AST (SGOT) 6 U/L (11-39) L [facility] ALT (SGPT) 9 U/L (12-78) L [facility] GFR >60 ml/min/1.73m2 (>59) [facility] GFR ( AMER) >60 ml/min/1.73m2 (>59) [facility] GFR INTERPRETATION [facility] --NORMAL KIDNEY FUNCTION OR MILD DISEASE - GFR >OR= 60CHRONIC KIDNEY DISEASE - GFR 15 - 59RENAL FAILURE - GFR <15 Est. GFR calculation based on the MDRDstudy equation, which assumes a steadystate for creatinine. Est. GFR should notbe used for medication dosing. ID Date Data Source [id number] 04/20/2020 02:58:54 PM EST [facility] Name Value Range Interpretation Code Description Data Samantha rce(s) Supporting Document(s) MAGNESIUM 5.1 mg/dL (1.7-2.4) [facility] RESULT(S) CALLED TO AND READ BACK AMANDA Taylor ON 04/20/2020 AT 4172 QN [id number] ID Date Data Source [id number] 04/20/2020 02:36:30 PM EST [facility] Name Value Range Interpretation Code Description Data Samantha rce(s) Supporting Document(s) WBC 8.3 10*3/uL (4.1-11.0) [facility] [place] RBC 3.12 10*6/uL (4.00-5.40) L [facility] HGB 9.8 g/dL (12.0-16.0) L [facility] HCT 28.6 % (36.0-47.0) L [facility] MCV 91.4 fL (80.0-95.0) [facility] MCH 31.4 pg (27.0-32.0) [facility] MCHC 34.4 g/dL (32.0-36.0) [facility] RDW 13.2 % (10.5-14.5) [facility] PLT 319 10*3/uL (150-450) [facility] MPV 7.2 fL (7.1-10.7) [facility] NEUT % 86.7 % (35.0-75.0) H [facility] LYMPH % 11.0 % (16.0-52.0) L [facility] MONO % 1.9 % (0.0-8.0) [facility] EOS % 0.1 % (0.0-5.0) [facility] BASO % 0.3 % (0.0-4.0) [facility] NEUT # 7.2 10*3/uL (1.8-7.7) [facility] LYMPH # 0.9 10*3/uL (1.2-4.8) L [facility] MONO # 0.2 10*3/uL (0.0-0.8) [facility] Eosinophils [#/volume] in Blood by Automated count 0.0 10*3/uL (0.0-0 .5) [facility] BASO # 0.0 10*3/uL (0.0-0.2) [facility] ID Date Data Source [id number] 04/20/2020 01:44:54 PM EST [facility] Name Value Range Interpretation Code Description Data Samantha rce(s) Supporting Document(s) POC GLUCOSE 117 mg/dL (70-99) H [facility] NOTIFIED NURSEPERFORMED BY CLINICAL S TAFF ID Date Data Source [id number] 04/20/2020 08:52:43 AM EST [facility] Name Value Range Interpretation Code Description Data Samantha rce(s) Supporting Document(s) WBC 8.3 10*3/uL (4.1-11.0) [facility] RBC 2.92 10*6/uL (4.00-5.40) L [facility] HGB 9.1 g/dL (12.0-16.0) L [facility] HCT 26.4 % (36.0-47.0) L [facility] MCV 90.3 fL (80.0-95.0) [facility] MCH 31.0 pg (27.0-32.0) [facility] MCHC 34.3 g/dL (32.0-36.0) [facility] RDW 13.1 % (10.5-14.5) [facility] PLT 317 10*3/uL (150-450) [facility] MPV 6.9 fL (7.1-10.7) L [facility] NEUT % 70.9 % (35.0-75.0) [facility] LYMPH % 21.7 % (16.0-52.0) [facility] MONO % 6.9 % (0.0-8.0) [facility] EOS % 0.4 % (0.0-5.0) [facility] BASO % 0.1 % (0.0-4.0) [facility] NEUT # 5.9 10*3/uL (1.8-7.7) [facility] LYMPH # 1.8 10*3/uL (1.2-4.8) [facility] MONO # 0.6 10*3/uL (0.0-0.8) [facility] Eosinophils [#/volume] in Blood by Automated count 0.0 10*3/uL (0.0-0 .5) [facility] BASO # 0.0 10*3/uL (0.0-0.2) [facility] ID Date Data Source [id number] 04/20/2020 09:01:20 AM EST [facility] Name Value Range Interpretation Code Description Data Samantha rce(s) Supporting Document(s) APTT 25.2 s (22.0-34.3) [facility] ID Date Data Source [id number] 04/20/2020 09:01:20 AM EST [facility] Name Value Range Interpretation Code Description Data Samantha rce(s) Supporting Document(s) PT 10.5 s (9.2-11.9) [facility] INR 1.00 [facility] SUGGESTED THERAPEUTIC RANGES USING INR F ORSTABILIZED ANTICOAGULATED PATIENTS:STANDARD DOSE THERAPY INR 2.0-3.0 DVT, PE, PREVENT DVT OR EMBOLISMHIGH DOSE THERAPY INR 2.5-3.5 PREVENT EMBOLISM FROM MECHANICAL HEART VALVE ID Date Data Source [id number] 04/20/2020 09:01:20 AM EST [facility] Name Value Range Interpretation Code Description Data Samantha rce(s) Supporting Document(s) FIBRINOGEN 414 mg/dL (150-450) [facility] ID Date Data Source [id number] 04/20/2020 05:41:32 AM EST [facility] Name Value Range Interpretation Code Description Data Samantha rce(s) Supporting Document(s) MAGNESIUM 5.1 mg/dL (1.7-2.4) [facility] RESULT(S) CALLED TO AND READ BACK [place] [address] [address] AT 0540 ID Date Data Source [id number] 04/20/2020 01:48:31 AM EST [facility] Name Value Range Interpretation Code Description Data Samantha rce(s) Supporting Document(s) MAGNESIUM 5.8 mg/dL (1.7-2.4) [facility] RESULT(S) CALLED TO AND READ BACK BYGARRETT BURGESS 8S 0147 04/20/20 [place] [address] ID Date Data Source [id number] 04/19/2020 07:56:00 PM EST [facility] DATE OF EXAM: 04/19/2020EXAM: OBSTETRICA [...] understanding. K9End of diagnostic report for accession: [id number] Interpreted: Jean-Pierre Scott MDTranscribed: 04/19/2020 07:32 PMSigned: 04/19/2020 07:56 PM Jean-Pierre Scott MD [facility] # [id number] BILL # [id number] Name Value Range Interpretation Code Description Data Samantha rce(s) Supporting Document(s) ID Date Data Source [id number] 04/21/2020 08:09:34 AM EST [facility] SPECIMEN DESCRIPTION VAGINAL/RECT ALSPECIAL REQUESTS SENSITIVITY REQUESTED (IF POSITIVE)CULTURE RESULTS NO BETA HEMOLYTIC STREPTOCOCCI GROUP B ISOLATEDREPORT STATUS FINAL 04/21/2020 Name Value Range Interpretation Code Description Data Samantha rce(s) Supporting Document(s) ID Date Data Source [id number] 04/20/2020 02:36:25 PM EST [facility] Name Value Range Interpretation Code Description Data Samantha rce(s) Supporting Document(s) SPECIMEN DESCRIPTION [facility] C. TRACHOMATIS (NEG) [facility] THIS ASSAY AMPLIFIES AND DETECTS TARGETD NA USING BOTTOM BRUSHER- MEDIATEDAMPLIFICATIONTESTING PERFORMED ON [employer] N. GONORRHOEAE (NEG) [facility] THIS ASSAY AMPLIFIES AND DETECTS TARGETD NA USING BOTTOM BRUSHER- MEDIATEDAMPLIFICATIONTESTING PERFORMED ON [employer] PANTHER ID Date Data Source [id number] 04/19/2020 06:34:17 PM EST [facility] SPECIMEN DESCRIPTION VAGINAL SPEC IMENRESULT NEGATIVE FOR ROSSY SPECIES BY DNA PROBE NEGATIVE FOR GARDNERELLA VAGINALIS BY DNA PROBE NEGATIVE FOR TRICHOMONAS VAGINALIS BY DNA PROBEPERFORMED AT [address] [facility] [address] REPORT STATUS FINAL 04/19/2020 Name Value Range Interpretation Code Description Data Samantha rce(s) Supporting Document(s) ID Date Data Source [id number] 04/19/2020 08:13:21 PM EST [facility] Name Value Range Interpretation Code Description Data Samantha rce(s) Supporting Document(s) REAGIN SYPHILIS @ (NR) [facility] ID Date Data Source [id number] 04/19/2020 08:11:06 PM EST [facility] Name Value Range Interpretation Code Description Data Samantha rce(s) Supporting Document(s) TREPONEMA IGG/IGM @ (NEG) A [facility] malfunction. See REAGIN SYPHILIS testfo r results of manual screening test. ID Date Data Source [id number] 04/19/2020 06:47:58 PM EST [facility] SPEC EXP DATE 04/22/2020PATI ENT ABO/Rh O POSITIVEANTIBODY SCREEN NEGATIVETESTING SITE PERFORMED AT [address] [facility] [address] Name Value Range Interpretation Code Description Data Samantha rce(s) Supporting Document(s) ID Date Data Source [id number] 04/19/2020 05:16:51 PM EST [facility] Name Value Range Interpretation Code Description Data Samantha rce(s) Supporting Document(s) WBC 10.9 10*3/uL (4.1-11.0) [facility] RBC 3.56 10*6/uL (4.00-5.40) L [facility] HGB 11.2 g/dL (12.0-16.0) L [facility] HCT 32.5 % (36.0-47.0) L [facility] MCV 91.4 fL (80.0-95.0) [facility] MCH 31.5 pg (27.0-32.0) [facility] MCHC 34.4 g/dL (32.0-36.0) [facility] RDW 12.9 % (10.5-14.5) [facility] PLT 340 10*3/uL (150-450) [facility] MPV 7.3 fL (7.1-10.7) [facility] ID Date Data Source [id number] 04/19/2020 06:36:00 AM EST [facility] Name Value Range Interpretation Code Description Data Samantha rce(s) Supporting Document(s) SARS coronavirus 2 RNA [Presence] in Res piratory specimen by ARRON with probe detection [facility] This lab was ordered by [facility] a nd reported by [facility]. ID Date Data Source WWBC OBS COMPLETE US 03/08/2020 12:00:00 AM EST eCW1 ([facility]) Name Value Range Interpretation Code Description Data Samantha rce(s) Supporting Document(s) WWBC OBS COMPLETE US eCW1 ([facility]) ID Date Data Source URINE CULTURE 02/10/2020 12:00:00 AM EDT eCW1 ([facility]) Name Value Range Interpretation Code Description Data Samantha rce(s) Supporting Document(s) URINE CULTURE eCW1 ([facility]) ID Date Data Source [id number] 01/02/2020 04:14:00 PM EDT [facility] CORRECTED FINAL REPORTCALLED TO [address] SO AUTODILUTION WILL OCCUR Name Value Range Interpretation Code Description Data Samantha rce(s) Supporting Document(s) BETA HCG,QUANT [id number] mIU/mL [facility] Female(non ) <10mIU/mLW eeks after Conception mIU/mL 1 Week 5-501-2 Weeks 50-5002-3 Weeks 100-5,0003-4 Weeks 500-10,0004-5 Weeks 1,000-50,0005-6 Weeks 10,000-100,0006-8 Weeks 15,000-200,0002nd Trimester 10,000-100,000 ID Date Data Source [id number] 12/15/2019 02:42:00 PM EDT [facility] [...] rce(s) Supporting Document(s) ID Date Data Source [id number] 11/30/2019 04:03:00 PM EDT [facility] [...] Ever Smoked complete d Denies Ever Smoked [facility] Smoking 05/05/2020 12:00:00 AM EST Never Smoker completed Never S moker eCW1 ([facility]) Smoking 04/19/2020 05:57:00 PM EST Denies Ever Smoked complete d Denies Ever Smoked [facility] Smoking 04/04/2020 12:00:00 AM EST Never Smoker completed Never S moker eCW1 ([facility]) Smoking 03/09/2020 12:00:00 AM EST Never Smoker completed Never S moker eCW1 ([facility]) Smoking 03/09/2020 12:00:00 AM EST Never Smoker completed Never S moker eCW1 ([facility]) Vital Signs ID Date Data Source UNK Name Value Range Interpretation Code Description Data Source(s) Body temperature 36.7 cade Normal (applies to non-numeric results) 36.7 cade [facility] Respiratory rate 18 min Normal (applies to non-numeric results) 18 min [facility] Body height 157.2768 cm Normal (applies to non-numeric res ults) 157.2768 cm [facility] Heart rate 70 min Normal (applies to non-numeric resul ts) 70 min [facility] Diastolic blood pressure 73 mm[Hg] Normal (applies to non-numeric results) 73 mm[Hg] [facility] Systolic blood pressure 126 mm[Hg] Normal (applies t o non-numeric results) 126 mm[Hg] [facility] Body weight Measured 64.864 kg Normal (applies to n on-numeric results) 64.864 kg [facility] Body mass index (BMI) [Ratio] 26.15 kg/m2 No rmal (applies to non-numeric results) 26.15 kg/m2 [facility] Body temperature 37.0 cade Normal (applies to non-numeric results) 37.0 cade [facility] Respiratory rate 18 min Normal (applies to non-numeric results) 18 min [facility] Body height 157.2768 cm Normal (applies to non-numeric res ults) 157.2768 cm [facility] Heart rate 111 min Normal (applies to non-numeric resul ts) 111 min [facility] Diastolic blood pressure 69 mm[Hg] Normal (applies to non-numeric results) 69 mm[Hg] [facility] Systolic blood pressure 107 mm[Hg] Normal (applies t o non-numeric results) 107 mm[Hg] [facility] Deprecated Oxygen saturation in Capillary blood by Oximetry 98 % Normal (applies to non-numeric results) 98 % [facility] Body weight Measured 65.317 kg Normal (applies to n on-numeric results) 65.317 kg [facility] Body mass index (BMI) [Ratio] 26.34 kg/m2 No rmal (applies to non-numeric results) 26.34 kg/m2 [facility] Diastolic blood pressure 70 mm[Hg] 70 mm[Hg] W1 ([facility]) Systolic blood pressure 114 mm[Hg] 114 mm[Hg] e 1 ([facility]) Body mass index (BMI) [Ratio] 25.615 kg/m2 25.6 15 kg/m2 [facility] ([facility]) Body height 63 [in_i] 63 [in_i] eCW1 ([facility]) Body weight 65.59 kg 65.59 kg [facility] ([facility]) Body weight 144.6 [lb_av] 144.6 [lb_av] eCW1 ([facility]) Diastolic blood pressure 70 mm[Hg] 70 mm[Hg] eCW1 ([facility]) Systolic blood pressure 108 mm[Hg] 108 mm[Hg] e CW1 ([facility]) Body mass index (BMI) [Ratio] 23.914 kg/m2 23.9 14 kg/m2 [facility] ([facility]) Body height 63 [in_i] 63 [in_i] eCW1 ([facility]) Body weight 61.23 kg 61.23 kg eCW1 ([facility]) Body weight 135 [lb_av] 135 [lb_av] eCW1 ([facility]) Diastolic blood pressure 70 mm[Hg] 70 mm[Hg] eCW1 ([facility]) Systolic blood pressure 116 mm[Hg] 116 mm[Hg] e CW1 ([facility]) Body mass index (BMI) [Ratio] 22.284 kg/m2 22.2 84 kg/m2 eCW1 ([facility]) Body height 63 [in_i] 63 [in_i] eCW1 ([facility]) Body weight 125.8 [lb_av] 125.8 [lb_av] eCW1 ([facility]) Oxygen saturation in Arterial blood by Pulse oximetry 99 % 99 % eCW1 ([facility]) Respiratory rate 18 /min 18 /min eCW1 ([facility]) Heart rate 94 /min 94 /min eCW1 ([facility]) Body temperature 98.2 [degF] 98.2 [degF] eCW1 ( [facility]) Body mass index (BMI) [Ratio] 20.37 kg/m2 20.37 kg/m2 eCW1 ([facility]) Body weight 126.2 [lb_av] 126.2 [lb_av] eCW1 ([facility]) Body height 66 [in_i] 66 [in_i] eCW1 ([facility]) Oxygen saturation in Arterial blood by Pulse oximetry 100 % 100 % eCW1 ([facility]) Respiratory rate 18 /min 18 /min eCW1 ([facility]) Heart rate 84 /min 84 /min eCW1 ([facility]) Body temperature 98 [degF] 98 [degF] eCW1 ([facility]) Body mass index (BMI) [Ratio] 19.33 kg/m2 19.33 kg/m2 eCW1 ([facility]) Body weight 119.8 [lb_av] 119.8 [lb_av] eCW1 ([facility]) Body height 66 [in_i] 66 [in_i] eCW1 ([facility]) Oxygen saturation in Arterial blood by Pulse oximetry 100 % 100 % eCW1 ([facility]) Respiratory rate 18 /min 18 /min eCW1 ([facility]) Heart rate 86 /min 86 /min eCW1 ([facility]) Body temperature 98.8 [degF] 98.8 [degF] eCW1 ( [facility]) Body mass index (BMI) [Ratio] 19.08 kg/m2 19.08 kg/m2 eCW1 ([facility]) Body weight 118.2 [lb_av] 118.2 [lb_av] eCW1 ([facility]) Body height 66 [in_i] 66 [in_i] eCW1 ([facility]) Deprecated Oxygen saturation in Capillary blood by Oximetry 99 % 99 % eCW1 ([facility]) Respiratory rate 16 /min 16 /min eCW1 ([facility]) Heart rate 99 /min 99 /min eCW1 ([facility]) Body temperature 99.2 [degF] 99.2 [degF] eCW1 ( [facility]) Body mass index (BMI) [Ratio] 18.57 kg/m2 18.57 kg/m2 eCW1 ([facility]) Body height 66 [in_us] 66 [in_us] eCW1 ([facility]) ID Date Data Source [id number] 05/26/2020 02:02:08 PM [facility] Name Value Range Interpretation Code Description Data Source(s) WEIGHT RECORDED 139 lb 139 lb [facility] ID Date Data Source [id number] 05/23/2020 11:34:31 AM [facility] Name Value Range Interpretation Code Description Data Source(s) WEIGHT RECORDED 137.2 lb 137.2 lb [facility] ID Date Data Source [id number] 01/29/2020 10:34:00 AM EDT [facility] Name Value Range Interpretation Code Description Data Source(s) WEIGHT 58.51 kilos 58.51 kilos [facility] HEIGHT 160.[address] [facility] WEIGHT 58.51 kilos 58.51 kilos [facility] HEIGHT 160.[address] [facility] ID Date Data Source [id number] 01/29/2020 10:34:00 AM EDT [facility] Name Value Range Interpretation Code Description Data Source(s) [facility] 59.87 [facility] 160.[address] [facility] WEIGHT 59.87 kilos 59.87 kilos [facility] HEIGHT 160.[address] [facility] Patient Treatment Plan of Care Planned Activity Planned Date Details Description Data Source (s) Citalopram 10 MG Oral Tablet [Celexa] 11/02/2019 12:00:00 AM EDT eCW1 ([facility]) Citalopram 10 MG Oral Tablet [Celexa] 11/02/2019 12:00:00 AM EDT eCW1 ([facility]) [id number] 05/15/2019 12:00:00 AM EST eCW1 ([facility])
[2020-05-29 21:07] LABS: BASO % 0.6 % (0.0-1.0); EOS # 0.6 10^3/uL (0.0-0.5); EOS % 8.3 % (0.0-3.0); HEMOGLOBIN 9.1 g/dl (12.0-15.5); LYMPH # 3.2 10^3/uL (1.5-5.0); LYMPH % 48.4 % (24.0-44.0); MEAN CORPUSCULAR HEMOGLOBIN 29.1 pg (27.0-33.0); MEAN CORPUSCULAR HGB CONC 30.3 g/dl (32.0-36.5); MEAN CORPUSCULAR VOLUME 95.8 fl (80.0-96.0); MONO # 0.5 10^3/uL (0.0-0.8); MONO % 7.5 % (0.0-5.0); NEUTROPHILS # 2.3 10^3/uL (1.5-8.5); PLATELET COUNT, AUTOMATED 419 10^3/uL (150-450); RED BLOOD COUNT 3.13 10^6/uL (4.00-5.40); WHITE BLOOD COUNT 6.7 10^3/uL (4.0-10.0)
[2020-05-29] MEDS ORDERED: NS 1,000 ML IV SCH (21:19)
[2020-05-29] MEDS ORDERED: MORPHINE 4 MG/ML 1ML VIAL/SYRINGE (J2270) IV ONE (21:30)
[2020-05-29 21:38] LABS: ALBUMIN 3.2 GM/DL (3.2-5.2); ALT/SGPT 17 U/L (12-78); BILIRUBIN,DIRECT < 0.1 MG/DL (0.0-0.2); BILIRUBIN,TOTAL 0.2 MG/DL (0.2-1.0); BLOOD UREA NITROGEN 14 MG/DL (7-18); CALCIUM LEVEL 8.9 MG/DL (8.5-10.1); CARBON DIOXIDE LEVEL 30 MEQ/L (21-32); CHLORIDE LEVEL 107 MEQ/L (98-107); CREATININE FOR GFR 0.82 MG/DL (0.55-1.30); GLOMERULAR FILTRATION RATE > 60.0 (>60); GLUCOSE, FASTING 103 MG/DL (70-100); LIPASE 433 U/L (73-393); POTASSIUM SERUM 4.2 MEQ/L (3.5-5.1); SODIUM LEVEL 141 MEQ/L (136-145); TOTAL PROTEIN 6.5 GM/DL (6.4-8.2)
[2020-05-29] MEDS: GASTROGRAFIN SOLUTION 30ML PO SCH ×2 (21:55→22:37)
[2020-05-29] MEDS ORDERED: ISOVUE-370 76% 100ML VIAL As Ordered ONE (23:22)
--- NOTE | 2020-05-30 00:13 | REPVR ---
PROCEDURE INFORMATION: Exam: CT Abdomen And Pelvis With Contrast Exam date and time: 05/29/2020 11:47 PM Age: 24 years old Clinical indication: Abdominal pain; Additional info: Rlq/suprapubic abd pain S/P csection TECHNIQUE: Imaging protocol: Computed tomography of the abdomen and pelvis with contrast. Radiation optimization: All CT scans at this facility use at least one of these dose optimization techniques: automated exposure control; mA and/or kV adjustment per patient size (includes targeted exams where dose is matched to clinical indication); or iterative reconstruction. Contrast material: ISO 370; Contrast volume: 100 ml; Contrast route: INTRAVENOUS (IV); COMPARISON: CT ABD/PEL W/IV ORAL CONTRAS 05/08/2020 10:18 PM FINDINGS: Liver: Normal. No mass. Gallbladder and bile ducts: Normal. No calcified stones. No ductal dilation. Pancreas: Normal. No ductal dilation. Spleen: Normal. No splenomegaly. Adrenal glands: Normal. No mass. Kidneys and ureters: Multiple small nonobstructive renal stones in the kidneys bilaterally. No hydronephrosis bilaterally. Stomach and bowel: No abnormal bowel dilatation. No abnormal bowel wall thickening. Negative for colonic diverticulitis. Severe stool in the colon. Appendix: Hyperdense ingested material within the appendix. Appendix is otherwise unremarkable. No appendiceal thickening. Intraperitoneal space: Unremarkable. No free air. No significant fluid collection. Vasculature: Unremarkable. No abdominal aortic aneurysm. Lymph nodes: Unremarkable. No enlarged lymph nodes. Urinary bladder: Unremarkable as visualized. Reproductive: Irregular loculated collection anterior to the uterus and superior to the bladder measuring 2.4 x 2.7 x 4.2 cm. Collection extends partially into the abdominal rectus muscle in the midline. Thickened endometrial cavity. Bones/joints: Unremarkable. No acute fracture. Soft tissues: Unremarkable. IMPRESSION: 1. Irregular loculated collection anterior to the uterus and superior to the bladder. Previously seen gas has resolved. Volume has decreased from prior. Abscess cannot be excluded. 2. Thickened endometrial cavity. Decreased from prior. 3. Multiple small nonobstructive renal stones in the kidneys bilaterally. Electronically signed by: Lyndsay Hernandez On 05/30/2020 00:12:56 AM
--- NOTE | 2020-05-30 03:11 | CR.PDOC ---
General Date of Consultation: May 30, 2020 Consultation REASON FOR CONSULTATION/CHIEF COMPLAINT: abdominal pain. HISTORY OF PRESENT ILLNESS: 24 yo female s/p emergency classical section at [facility] on 05/02/2020 presents to the ER with right sided pelvic pain that is intermittent and sharp. She had an intraperitoneal abscess between the uterus and bladder diagnosed on 05/08/2020. She was transferred to [facility] where IR placed a percutaneous drain. She was treated with IV antibiotics from 05/08/2020 to 05/18/2020 at [facility]. The drain was removed on 05/17/2020. She was sent home on oral antibiotics until 05/26/2020. She denies fevers. Her baby is still in the NICU at [facility] due to severe prematurity. ALLERGIES: Please see below. HOME MEDICATIONS: Please see below. PAST MEDICAL HISTORY: 1. kidney stone PAST SURGICAL HISTORY: 1. cesaraen section 05/02/2020 FAMILY HISTORY: non-contributory SOCIAL HISTORY: Marital status and/or living arrangements: Children: Employment: Tobacco use: ETOH: no Illicit drug use: no IV drug use: no REVIEW OF SYSTEMS: negative except for abdominal pain PHYSICAL EXAMINATION: VITAL SIGNS: Please see below. GENERAL APPEARANCE: NAD. HEENT: NCAT. RESPIRATORY: CTA. CARDIOVASCULAR: RRR. ABDOMEN: NT, soft, ND, I C/D/I. EXTREMITIES: NT CT scan 05/08/2020: 10 cm collection between bladder and uterus, possible abscess CT scan 05/30/2020: 4 x 2 cm loculated fluid collection between bladder and uterus, significantly decreased in size from prior CT ASSESSMENT/PLAN: 24 yo with post-op intraperitoneal abscess s/p drainage 1. Do not recommend further attempts at drainage because collection is small and loculated. I do not think further attempts at percutaneous drainage will be suc cessful 2. She has no white count or other signs to suggest she is septic; she has been treated with massive doses of antibiotics already 3. No clear cut evidence that this fluid collection is currently infected 4. Would recommend close follow up. Leticia repeat CT scan in 4-6 weeks to see if collection has resolved. 5. If she needs further intervention in the future, would consider laparoscopic drainage 5. She can follow up in our office in 1 week 6. No need to transfer back to [facility]; I doubt they would recommend further attempts at drainage at this time Vital Signs/I&O Vital Signs Date Time Temp Pulse Resp B/P (MAP) Pulse Ox O2 Delivery O2 Flow Rate FiO2 05/30/20 01:11 97.6 86 16 119/55 (76) 99 Room Air Laboratory Data Labs 24H Laboratory Tests 2 05/29/20 20:55: Immature Granulocyte % (Auto) 0.2, Neutrophils (%) (Auto) 35.0L, Lymphocytes (%) (Auto) 48.4H, Monocytes (%) (Auto) 7.5H, Eosinophils (%) (Auto) 8.3H, Basophils (%) (Auto) 0.6, Neutrophils # (Auto) 2.3, Lymphocytes # (Auto) 3.2, Monocytes # (Auto) 0.5, Eosinophils # (Auto) 0.6H, Basophils # (Auto) 0.0, Nucleated Red B lood Cells % (auto) 0.0, Anion Gap 4L, Glomerular Filtration Rate > 60.0, Calcium Level 8.9, Total Bilirubin 0.2, Direct Bilirubin < 0.1, Aspartate Amino Transf (AST/SGOT) 9, Alanine Aminotransferase (ALT/SGPT) 17, Alkaline Phosphatase 118H, Total Protein 6.5, Albumin 3.2, Albumin/Globulin Ratio 1.0L, Lipase 433H CBC/BMP Laboratory Tests 05/29/20 20:55 Allergies Coded Allergies: Penicillins (Verified Allergy, Unknown, 01/03/20) Home Medications Scheduled No.137/Iron/Folic Acd ( Vitamin Tablet) 1 Tab Tab, 1 TAB PO DAILY, (Reported) YVONNE PÉREZ MD May 30, 2020 02:55
[2020-05-30] MEDS ORDERED: OXYC-517 PO (04:32)
[2020-05-30 04:46] VITALS: BP 118/60
--- NOTE | 2020-05-30 15:41 | ED PDOC ---
Post-Departure Follow-Up dr velazquez and feliberto lazcano faxed formal report of ct abd/p for fu Andrews Nuñez MD May 30, 2020 15:41
== END 2020-05-30 04:48 | disposition home or self-care (01) ==
LOC: M ED 19:57
DX: R10.9 Unspecified abdominal pain (principal); T88.8XXA Other specified complications of surgical and medical care, not elsewhere classified, initial encounter; N20.0 Calculus of kidney; Z88.1 Allergy status to other antibiotic agents; Z79.899 Other long term (current) drug therapy
CPT/HCPCS: 74177; 80048; 80076; 83690; 85025; 96361; 96374; 99284; J2270; Q9963; Q9967

== ENCOUNTER → 2024-11-24 | Outpatient (CLI) | payer OTHER ==
[2024-11-24 17:26] LABS: PLATELET COUNT, AUTOMATED 287 10^3/uL (150-450)
[2024-11-24 18:25] LABS: HIV 1&2 SCREEN NEGATIVE (NEGATIVE)
[2024-11-24 18:33] LABS: HEPATITIS C VIRUS ABY INDEX < 0.02 INDEX (<0.8)
== END ==
LOC: M PLALAB 15:10
PROVIDERS: ATTEND Advanced Practice Midwife
DX: Z34.81 Encounter for supervision of other normal pregnancy, first trimester (principal)

== ENCOUNTER → 2025-01-14 | Outpatient (CLI) | payer OTHER ==
[~2025-01-14] MED LIST changes: -IBUP-1022 PO; +IBUP600T42 PO
== END ==
LOC: M WHC 10:26
PROVIDERS: ATTEND Advanced Practice Midwife
DX: Z34.82 Encounter for supervision of other normal pregnancy, second trimester (principal)

== ENCOUNTER 2025-02-26 15:39 | Emergency (ER) | payer OTHER | END 2025-02-26 15:41 | disposition admitted as inpatient to this hospital (09) | LOC: M ED 15:39 | DX: Z53.21 Procedure and treatment not carried out due to patient leaving prior to being seen by health care provider (principal) ==

== ENCOUNTER 2025-02-26 15:47 | Outpatient (CLI) | payer OTHER ==
[2025-02-26] VITALS (10 sets, daily range): BP systolic 128–151; BP diastolic 63–103; TEMP 97.8
[~2025-02-26] VITALS: Ht 162.6 cm; Wt 69.8 kg
[2025-02-26 17:11] LABS: PLATELET COUNT, AUTOMATED 361 10^3/uL (150-450)
[2025-02-26 17:12] LABS: TOTAL PROTEIN,RANDOM URINE 37.5 MG/DL (0.0-14.0)
[2025-02-26 17:42] LABS: LDH LACTATE DEHYDROGENASE 154 U/L (120-246)
[2025-02-26 17:43] LABS: ALT/SGPT 14 U/L (7.0-40); AST/SGOT 13 U/L (<34); CREATININE FOR GFR 0.61 MG/DL (0.55-1.30); GLOMERULAR FILTRATION RATE > 90.0 (>60)
[2025-02-26] MEDS: LABETALOL 100 MG TAB PO SCH (21:03)
[2025-02-27 00:05] VITALS: BP 119/70; TEMP 98
[2025-02-27 05:48] VITALS: BP 133/85; TEMP 98.3
[2025-02-27 08:48] VITALS: BP 132/86
[2025-02-27 08:50] VITALS: BP 132/86
[2025-02-27] MEDS: NICOTINE POLACRILEX 2 MG GUM PO PRN (08:50)
== END 2025-02-27 11:10 | disposition home or self-care (01) ==
LOC: M LDO 15:47
PROVIDERS: ATTEND Advanced Practice Midwife
DX: O10.013 Pre-existing essential hypertension complicating pregnancy, third trimester (principal); O09.33 Supervision of pregnancy with insufficient antenatal care, third trimester; O09.213 Supervision of pregnancy with history of pre-term labor, third trimester; O09.893 Supervision of other high risk pregnancies, third trimester; O34.211 Maternal care for low transverse scar from previous cesarean delivery; Z59.9 Problem related to housing and economic circumstances, unspecified; Z3A.28 28 weeks gestation of pregnancy
CPT/HCPCS: 36415; 59025; 76816; 82247; 82570; 83615; 84156; 84450; 84460; 84550; 85027; G0463

== ENCOUNTER 2025-03-10 22:54 | Outpatient (CLI) | payer OTHER ==
[~2025-03-10] VITALS: Ht 162.6 cm; Wt 71.5 kg
[2025-03-10 23:30] VITALS: BP 123/74; TEMP 97.5
[2025-03-11 01:07] LABS: Trichomonas vaginalis (AMP) NOT DETECTED (NEGATIVE)
[2025-03-11 01:31] LABS: GC DNA AMPLIFICATION NEGATIVE (NEGATIVE)
[2025-03-11] MEDS ORDERED: METR-265 PO (02:10)
== END 2025-03-11 02:55 | disposition home or self-care (01) ==
LOC: M LDO 22:54
PROVIDERS: ATTEND Advanced Practice Midwife
DX: O23.593 Infection of other part of genital tract in pregnancy, third trimester (principal); O09.33 Supervision of pregnancy with insufficient antenatal care, third trimester; O34.211 Maternal care for low transverse scar from previous cesarean delivery; O09.893 Supervision of other high risk pregnancies, third trimester; Z3A.30 30 weeks gestation of pregnancy
CPT/HCPCS: 59025; 87661; 87810; 87850; G0463

== ENCOUNTER → 2025-03-17 | Outpatient (REF) | payer OTHER ==
[~2025-03-17] MED LIST changes: +METR-265 PO
[2025-03-17 17:35] LABS: LDH LACTATE DEHYDROGENASE 148 U/L (120-246)
[2025-03-17 17:36] LABS: ALT/SGPT < 9 U/L (7.0-40); AST/SGOT 11 U/L (<34); CREATININE FOR GFR 0.75 MG/DL (0.55-1.30); GLOMERULAR FILTRATION RATE > 90.0 (>60); GLUCOSE CHALLENGE TEST 1 HOUR 93 MG/DL (LESS THAN 140)
[2025-03-17 17:41] LABS: PLATELET COUNT, AUTOMATED 313 10^3/uL (150-450)
[2025-03-17 17:42] LABS: TOTAL PROTEIN,RANDOM URINE 40.2 MG/DL (0.0-14.0)
[2025-03-17 18:00] LABS: HIV 1&2 SCREEN NEGATIVE (NEGATIVE)
[2025-03-17 18:08] LABS: HEPATITIS C VIRUS ABY INDEX < 0.02 INDEX (<0.8)
[2025-03-17 18:15] LABS: Trichomonas vaginalis (AMP) NOT DETECTED (NEGATIVE)
[2025-03-17 18:39] LABS: GC DNA AMPLIFICATION NEGATIVE (NEGATIVE)
== END ==
LOC: M PLALAB 12:12
PROVIDERS: ATTEND Nurse Practitioner Family
DX: O14.93 Unspecified pre-eclampsia, third trimester (principal)

== ENCOUNTER → 2025-04-01 | Outpatient (CLI) | payer OTHER ==
[~2025-04-01] MED LIST changes: +LABE100T91 PO; +ONDA-282 PO
[2025-04-01 17:36] LABS: PLATELET COUNT, AUTOMATED 314 10^3/uL (150-450)
[2025-04-01 17:42] LABS: ALT/SGPT < 9 U/L (7.0-40); AST/SGOT 15 U/L (<34); CREATININE FOR GFR 0.66 MG/DL (0.55-1.30); GLOMERULAR FILTRATION RATE > 90.0 (>60); LDH LACTATE DEHYDROGENASE 164 U/L (120-246)
[2025-04-01 17:56] LABS: TOTAL PROTEIN,RANDOM URINE 7.7 MG/DL (0.0-14.0)
== END ==
LOC: M PLALAB 15:42
PROVIDERS: ATTEND Nurse Practitioner Family
DX: O14.93 Unspecified pre-eclampsia, third trimester (principal)

== ENCOUNTER 2025-04-03 14:36 | Emergency (ER) | payer OTHER ==
[~2025-04-03 14:36] MED LIST changes: -LABE100T91 PO; -ONDA-282 PO
[2025-04-03] MEDS ORDERED: LABE100T91 PO (15:20)
[2025-04-03] MEDS ORDERED: ONDA-282 PO (17:46)
== END 2025-04-03 14:40 | disposition admitted as inpatient to this hospital (09) ==
LOC: M ED 14:36
DX: Z53.21 Procedure and treatment not carried out due to patient leaving prior to being seen by health care provider (principal)

== ENCOUNTER 2025-04-03 14:43 | Outpatient (CLI) | payer OTHER ==
[~2025-04-03] VITALS: Ht 162.6 cm; Wt 72.5 kg
[2025-04-03 15:06] VITALS: BP 133/94
[2025-04-03] MEDS ORDERED: LABE100T91 PO (15:20)
[2025-04-03 15:32] VITALS: BP 134/87
[2025-04-03 15:59] LABS: PLATELET COUNT, AUTOMATED 285 10^3/uL (150-450)
[2025-04-03 16:25] VITALS: BP 136/86
[2025-04-03 16:29] LABS: ALT/SGPT < 9 U/L (7.0-40); AST/SGOT 15 U/L (<34); CALCIUM LEVEL 7.9 MG/DL (8.5-10.1); CARBON DIOXIDE LEVEL 23 MMOL/L (20-31); CHLORIDE LEVEL 103 MMOL/L (98-107); CREATININE FOR GFR 0.55 MG/DL (0.55-1.30); GLOMERULAR FILTRATION RATE > 90.0 (>60); POTASSIUM SERUM 3.4 MMOL/L (3.5-5.1); SODIUM LEVEL 137 MMOL/L (136-145)
[2025-04-03] MEDS: ONDANSETRON 4MG/2ML VIAL IV ONE (17:06)
[2025-04-03] MEDS: LR 1,000 ML IV ONE (17:07)
[2025-04-03] MEDS: POTASSIUM CHLORIDE 10MEQ SR TABLET PO ONE (17:33)
[2025-04-03] MEDS ORDERED: ONDA-282 PO (17:46)
[2025-04-03 19:25] LABS: Trichomonas vaginalis (AMP) NOT DETECTED (NEGATIVE)
[2025-04-03 19:48] LABS: GC DNA AMPLIFICATION NEGATIVE (NEGATIVE)
== END 2025-04-03 17:55 | disposition home or self-care (01) ==
LOC: M LDO 14:43
PROVIDERS: ATTEND Obstetrics & Gynecology
DX: O98.513 Other viral diseases complicating pregnancy, third trimester (principal); O99.613 Diseases of the digestive system complicating pregnancy, third trimester; O99.283 Endocrine, nutritional and metabolic diseases complicating pregnancy, third trimester; O14.13 Severe pre-eclampsia, third trimester; K52.9 Noninfective gastroenteritis and colitis, unspecified; E86.0 Dehydration; Z3A.33 33 weeks gestation of pregnancy; Z88.0 Allergy status to penicillin
CPT/HCPCS: 59025; 80053; 82150; 83690; 85027; 87661; 87810; 87850; 96374; G0463; J2405

== ENCOUNTER → 2025-04-07 | Outpatient (REF) | payer OTHER ==
[~2025-04-07] MED LIST changes: +LABE100T91 PO; +ONDA-282 PO
[2025-04-07 11:25] LABS: TOTAL PROTEIN,RANDOM URINE 54.2 MG/DL (0.0-14.0)
== END ==
LOC: M SFHCWAGY 10:28
PROVIDERS: ATTEND Obstetrics & Gynecology
DX: O14.93 Unspecified pre-eclampsia, third trimester (principal)

== ENCOUNTER 2025-04-15 13:59 | Inpatient (IN) | payer OTHER ==
[~2025-04-15] VITALS: Ht 162.6 cm; Wt 68.0 kg
[2025-04-15 14:23] VITALS: BP 154/97
[2025-04-15] MEDS ORDERED: ONDANSETRON 4MG/2ML VIAL As Ordered ONE (15:01)
[2025-04-15] MEDS ORDERED: OXYTOCIN DRIP 30 UNITS in IV 1 EA IV PRN (15:05)
[2025-04-15] MEDS ORDERED: LR 1,000 ML IV SCH (15:05)
[2025-04-15] MEDS ORDERED: MORPHINE PRES-FREE INJ 10 MG/10 ML VIAL As Ordered ONE (15:05)
[2025-04-15] MEDS: LR 1,000 ML IV SCH ×2 (15:05→21:58)
[2025-04-15] MEDS ORDERED: OXYTOCIN INJ 10UNITS/ML 1ML VIAL As Ordered ONE (15:10)
[2025-04-15 15:11] LABS: BASO # 0.0 10^3/uL (0.0-0.2); BASO % 0.2 % (0.0-1.0); EOS # 0.0 10^3/uL (0.0-0.5); EOS % 0.1 % (0.0-3.0); LYMPH # 2.1 10^3/uL (1.5-5.0); LYMPH % 11.1 % (24.0-44.0); MONO # 1.2 10^3/uL (0.0-0.8); MONO % 6.5 % (2.0-8.0); NEUTROPHILS # 15.4 10^3/uL (1.5-8.5); NEUTROPHILS % 81.3 % (36.0-66.0); PLATELET COUNT, AUTOMATED 504 10^3/uL (150-450)
[2025-04-15] MEDS ORDERED: PHENYLephrine 500MCG 5ML (100MCG/ML) SYRINGE As Ordered ONE (15:11)
[2025-04-15] MEDS ORDERED: KETOROLAC 30 MG/ML 1 ML VIAL As Ordered ONE (15:11)
[2025-04-15 15:12] VITALS: BP 143/96
[2025-04-15] MEDS: BICITRA 30 ML SOLN UDC PO ONE (15:14)
[2025-04-15] MEDS: ceFAZolin SODIUM 2 GM in DEXTROSE 5% (D5W) ADV/MINI-BAG 50 ML IV ONE (15:15)
[2025-04-15] MEDS: AZITHROMYCIN INJ 500 MG, VIAL MATE ADAPTER 1 EACH in NS 250 ML IV STA (15:29)
[2025-04-15] MEDS ORDERED: PHENYLEPHRINE 10MG/ML 1ML VIAL As Ordered ONE (15:56)
[2025-04-15 16:09] LABS: HIV 1&2 SCREEN NEGATIVE (NEGATIVE)
[2025-04-15] MEDS ORDERED: VASOPRESSIN INJ 20UNITS/ML 1ML VIAL As Ordered ONE (16:15)
[2025-04-15 16:16] LABS: HEPATITIS C VIRUS ABY INDEX 0.09 INDEX (<0.8)
[2025-04-15 16:41] LABS: CORD GAS ABE A -23.4; CORD GAS HCO3 A 12.7 MMOL/L; CORD GAS O2 SAT A 81.1 %; CORD GAS PCO2 A 78.4 mmHg; CORD GAS PO2 A 59.1 mmHg; CORD GAS SBC A 8.8 MMOL/L; CORD GAS TCO2 A 15.1 MMOL/L
[2025-04-15 16:42] LABS: CORD GAS ABE V -21.5; CORD GAS HCO3 V 12.7 MMOL/L; CORD GAS O2 SAT V 84.0 %; CORD GAS PCO2 V 65.9 mmHg; CORD GAS PO2 V 64.0 mmHg; CORD GAS SBC V 9.8 MMOL/L; CORD GAS TCO2 V 14.7 MMOL/L
[2025-04-15 16:46] LABS: CORD GAS PH A 6.826 UNITS
[2025-04-15 16:48] LABS: CORD GAS PH V 6.903 UNITS
[2025-04-15] MEDS ORDERED: MORPHINE 4 MG/ML 1 ML VIAL IV PRN (17:15)
[2025-04-15] MEDS ORDERED: ACETAMINOPHEN 500 MG TAB PO PRN (17:15)
[2025-04-15] MEDS: OXYTOCIN DRIP 30 UNITS in IV 1 EA IV SCH ×2 (17:15→18:14)
[2025-04-15] MEDS ORDERED: ONDANSETRON 4MG/2ML VIAL IV PRN (17:15)
[2025-04-15] MEDS ORDERED: IBUPROFEN 600 MG TAB PO PRN (17:15)
[2025-04-15] MEDS ORDERED: RHOGAM 300MCG (1500IU) INJ IM SCH (17:15)
[2025-04-15] MEDS ORDERED: SIMETHICONE 80MG CHEW TAB PO PRN (17:15)
[2025-04-15] MEDS ORDERED: KETOROLAC 30 MG/ML 1 ML VIAL IV SCH (17:15)
[2025-04-15] MEDS ORDERED: ONDANSETRON 4MG TAB PO PRN (17:15)
[2025-04-15] MEDS ORDERED: HYDROmorphone 2 MG TAB PO PRN (17:40)
[2025-04-15 17:50] VITALS: TEMP 97.8
[2025-04-15 19:00] VITALS: BP 117/66; O2SAT 96
[2025-04-15 19:09] LABS: RSV AMPLIFICATION NEGATIVE (NEGATIVE)
[2025-04-15 20:10] VITALS: BP 137/90; O2SAT 98
[2025-04-15 21:10] VITALS: BP 139/93; O2SAT 96
[2025-04-15] MEDS: KETOROLAC 30 MG/ML 1 ML VIAL IV SCH (21:58)
[2025-04-15] MEDS ORDERED: LR 1,000 ML IV ONE (22:15)
[2025-04-15] MEDS: diphenhydrAMINE 50 MG/ML VIAL IV ONE (22:30)
[2025-04-15] MEDS: guaiFENesin SYRUP 200 MG/10 ML UDC PO PRN (23:34)
[2025-04-16] VITALS (7 sets, daily range): BP systolic 114–143; BP diastolic 77–93; O2SAT 95–100
[2025-04-16] MEDS ORDERED: IBUP600T42 PO (02:02)
[2025-04-16] MEDS ORDERED: MM S100C PO (02:02)
[2025-04-16] MEDS ORDERED: OXYC1TAB23 PO (02:02)
[2025-04-16] MEDS: traMADol 50 MG TAB PO PRN (05:20)
[2025-04-16 08:03] LABS: PLATELET COUNT, AUTOMATED 433 10^3/uL (150-450)
[2025-04-16] MEDS: PRENATAL VITAMINS CHEWABLE TABLET PO SCH (09:00)
[2025-04-16] MEDS: FERROUS SULFATE 325 MG TAB PO SCH (09:00)
[2025-04-16] MEDS: LABETALOL 100 MG TAB PO SCH (09:35)
[2025-04-16] MEDS: LR 1,000 ML IV SCH (10:37)
[2025-04-16] MEDS ORDERED: PERCOCET 5MG/325MG TAB PO PRN (12:50)
[2025-04-16] MEDS: PERCOCET 5MG/325MG TAB PO PRN (13:39)
[2025-04-16] MEDS: IBUPROFEN 600 MG TAB PO PRN (21:11)
[2025-04-17 02:00] VITALS: BP 103/65; O2SAT 98
[2025-04-17 06:01] VITALS: BP 110/72; O2SAT 94
[2025-04-17] MEDS: MEASLES,MUMPS,RUBELLA VACCINE INJ (MMR-II) SC.IMMUN ONE (08:15)
[2025-04-17 09:32] VITALS: BP 125/81
[2025-04-17 10:00] VITALS: BP 127/84; O2SAT 95
[2025-04-17] MEDS: DOCUSATE SODIUM 100 MG CAPSULE PO PRN (10:59)
== END 2025-04-17 11:25 | disposition home or self-care (01) | DRG 540 ==
LOC: M LDO 13:59 → M LDI 14:48 → M OBS 18:54
PROVIDERS: ADMIT Student in an Organized Health Care Education/Training Program; ATTEND Student in an Organized Health Care Education/Training Program
PROC: 10D00Z1 Extraction of Products of Conception, Low, Open Approach (ICD-10-PCS; principal; 2025-04-15 15:03)
DX: O60.14X0 Preterm labor third trimester with preterm delivery third trimester, not applicable or unspecified (principal); Z3A.35 35 weeks gestation of pregnancy; Z37.0 Single live birth; O34.211 Maternal care for low transverse scar from previous cesarean delivery; Z88.0 Allergy status to penicillin; F17.200 Nicotine dependence, unspecified, uncomplicated; O99.334 Smoking (tobacco) complicating childbirth; F12.90 Cannabis use, unspecified, uncomplicated; O99.324 Drug use complicating childbirth; O14.94 Unspecified pre-eclampsia, complicating childbirth